=== PATIENT | male | born 1935 | race Caucasian/White ===

== ENCOUNTER 2018-02-04 07:56 | Emergency (ER) | payer MEDICARE ==
[2018-02-04 08:37] LABS: #Eosinphils 0.1 thou/uL (0.0-0.7); #Lymphocytes 1.5 thou/uL (1.20-3.40); #Monocytes 0.4 thou/uL (0.11-0.59); #Neutrophils 3.6 thou/uL (1.40-6.50); %Basophils 0.3 % (0.0-1.0); %Eosinophils 1.5 % (0.0-10.0); %Lymphocytes 27.3 % (21.0-51.0); %Monocytes 7.7 % (0.0-10.0); %Neutrophils 63.3 % (42.0-75.0); Hemoglobin 13.7 g/dL (14.0-18.0); Mean Corpuscular HGB CONC 34.2 g/dL (32.0-36.0); Mean Corpuscular Hemoglobin 31.5 pg (27.0-31.0); Mean Corpuscular Volume 91.9 fL (78.0-98.0); Mean Platelet Volume 8.2 fL (7.4-10.4); Platelet Count 187 thou/uL (130-400); RBC Distribution Width 12.3 % (11.5-14.5); Red Blood Cell (RBC) Count 4.34 mill/uL (4.70-6.10); White Blood Cell (WBC) Count 5.7 thou/uL (4.8-10.8)
[2018-02-04] MEDS ORDERED: methylPREDNISolone Sod Succ/PF 125 MG/2 ML VIAL ONE (08:37)
[2018-02-04 08:47] LABS: ALT (SGPT) 46 U/L (8-55); AST (SGOT) 30 U/L (5-34); Albumin 3.9 g/dL (3.4-4.8); Alkaline Phosphatase 88 U/L (40-150); Anion Gap 17 mmol/L (10-20); BUN (Urea Nitrogen) 19 mg/dL (8.4-25.7); Bilirubin, Total 0.4 mg/dL (0.2-1.2); CK (CPK) 116 U/L (30-200); Calc. Creatinine Clearance 0 mL/min (70-130); Calcium 9.1 mg/dL (7.8-10.44); Carbon Dioxide 18 mmol/L (23-31); Chloride 104 mmol/L (98-107); Estimated GFR-MDRD 76; Glucose 247 mg/dL (83-110); Lipase 6 U/L (8-78); Potassium 4.2 mmol/L (3.5-5.1); Protein, Total 6.9 g/dL (5.8-8.1); Sodium 135 mmol/L (136-145)
[2018-02-04 08:57] LABS: CKMB 4.5 ng/mL (0-6.6); Troponin I Less than 0.010 ng/mL (< 0.028)
--- NOTE | 2018-02-04 09:30 | RAD ---
FRONTAL VIEW CHEST: COMPARISON: 11/18/10. INDICATION: Chest pain. FINDINGS: There is no evidence of lobar consolidation, effusion, or discrete pneumothorax. No free air is seen beneath the hemidiaphragms. The cardiomediastinal silhouette is accentuated by portable technique. There is interstitial prominence of each lung. IMPRESSION: No focal consolidation. POS: [facility]
== END 2018-02-04 10:22 | disposition home or self-care (01) ==
LOC: ERS 07:56
DX: J44.1 Chronic obstructive pulmonary disease with (acute) exacerbation (principal); E11.9 Type 2 diabetes mellitus without complications; Z87.891 Personal history of nicotine dependence
CPT/HCPCS: 71045; 80053; 82550; 82553; 83690; 84484; 85025; 93005; 94640; 96374; J2930; J7620

== ENCOUNTER 2019-09-22 09:00 | Emergency (ER) | payer OTHER, MEDICARE ==
[2019-09-22 10:48] LABS: Bacteria/HPF 4+ HPF (None Seen); Bilirubin Negative (Negative); Blood, Urine Trace (Negative); Calcium Oxalate Crystals 1+ HPF (None Seen); Clarity Turbid (Clear); Glucose, Urine (Dipstick) Greater than 1000 mg/dL (Negative); Leukocyte 500 Leu/uL (Negative); Nitrite Negative (Negative); Protein, Urine (Dipstick) 20 mg/dL (Neg-Trace); RBC/HPF None Seen HPF (0-3); Squamous Epithelial None Seen HPF (0-3); Urobilinogen Normal mg/dL (Less than 2); WBC/HPF Greater than 50 HPF (0-3)
[2019-09-22 11:20] LABS: #Lymphocytes 1.3 thou/uL (1.20-3.40); #Monocytes 0.7 thou/uL (0.11-0.59); %Basophils 0.2 % (0.0-1.0); %Eosinophils 0.2 % (0.0-10.0); %Lymphocytes 11.5 % (21.0-51.0); %Monocytes 6.5 % (0.0-10.0); %Neutrophils 81.6 % (42.0-75.0); Hemoglobin 13.9 g/dL (14.0-18.0); Mean Corpuscular HGB CONC 33.8 g/dL (32.0-36.0); Mean Corpuscular Hemoglobin 31.6 pg (27.0-31.0); Mean Corpuscular Volume 93.5 fL (78.0-98.0); Mean Platelet Volume 9.8 fL (7.4-10.4); Platelet Count 160 thou/uL (130-400); RBC Distribution Width 12.2 % (11.5-14.5); Red Blood Cell (RBC) Count 4.41 mill/uL (4.70-6.10); White Blood Cell (WBC) Count 11.1 thou/uL (4.8-10.8)
[2019-09-22] MEDS ORDERED: Sodium Chloride 0.9% 100 ML ONE (11:20)
[2019-09-22] MEDS ORDERED: cefTRIAXone\\ROCEPHIN 2 GM VIAL ONE (11:20)
[2019-09-22 11:47] LABS: ALT (SGPT) 32 U/L (8-55); AST (SGOT) 32 U/L (5-34); Albumin 3.7 g/dL (3.4-4.8); Alkaline Phosphatase 93 U/L (40-110); Anion Gap 14 mmol/L (10-20); BUN (Urea Nitrogen) 25 mg/dL (8.4-25.7); Bilirubin, Total 0.5 mg/dL (0.2-1.2); CK (CPK) 634 U/L (30-200); Calc. Creatinine Clearance 0 mL/min (70-130); Calcium 8.7 mg/dL (7.8-10.44); Carbon Dioxide 22 mmol/L (23-31); Chloride 107 mmol/L (98-107); Estimated GFR-MDRD 83; Globulin 2.6 g/dL (2.4-3.5); Glucose 264 mg/dL (83-110); Potassium 4.3 mmol/L (3.5-5.1); Protein, Total 6.3 g/dL (5.8-8.1); Sodium 139 mmol/L (136-145)
--- NOTE | 2019-09-22 12:08 | RAD ---
CHEST 1 VIEW PORTABLE: Date: 09/22/2019 HISTORY: Mild upper lung bullous changes. Increased linear and interstitial markings bilaterally. No confluent pneumonia, overt edema, or pleural effusion. IMPRESSION: Evidence for some mild stable bilateral chronic changes with minimal hyperinflation of the upper lung zones. Atherosclerosis of aorta with ectasia. POS: [facility]
--- NOTE | 2019-09-22 12:29 | RAD ---
AP PELVIS 1 VIEW: Date: 09/22/2019 HISTORY: Injury from a fall. FINDINGS: Mild arthrosis changes of the hip joints, SI joints, and some lower lumbar spine spondylosis. No frac ture or dislocation. IMPRESSION: Osteoarthrosis changes without fracture or dislocation. POS: [facility]
== END 2019-09-22 18:29 ==
LOC: ERS 09:00
DX: S70.02XA Contusion of left hip, initial encounter (principal); N39.0 Urinary tract infection, site not specified; R53.1 Weakness; E11.9 Type 2 diabetes mellitus without complications; J44.9 Chronic obstructive pulmonary disease, unspecified; Z87.891 Personal history of nicotine dependence; Z79.82 Long term (current) use of aspirin; Z79.899 Other long term (current) drug therapy; Z79.84 Long term (current) use of oral hypoglycemic drugs; W18.30XA Fall on same level, unspecified, initial encounter
CPT/HCPCS: 36415; 71045; 72170; 80053; 81003; 81015; 82550; 85025; 87077; 87086; 87186; 96361; 96365; J0696; J3490

== ENCOUNTER 2020-06-14 10:11 | Inpatient (IN) | payer MEDICARE, OTHER ==
[2020-06-14 10:56] LABS: Bacteria/HPF 4+ HPF (None Seen); Bilirubin Negative (Negative); Blood, Urine 1+ (Negative); Clarity Clear (Clear); Glucose, Urine (Dipstick) 500 mg/dL (Negative); Ketone, Urine Negative (Negative); Leukocyte 75 Leu/uL (Negative); Nitrite 2+ (Negative); Protein, Urine (Dipstick) 20 mg/dL (Neg-Trace); RBC/HPF 21-50 HPF (0-3); Specific Gravity, Urine 1.019 (1.002-1.036); Squamous Epithelial None Seen HPF (0-3); Urobilinogen Normal mg/dL (Less than 2); pH, Urine 5.5 (5.0-9.0)
[2020-06-14 11:06] LABS: #Lymphocytes 0.5 thou/uL (1.20-3.40); #Monocytes 0.3 thou/uL (0.11-0.59); #Neutrophils 3.6 thou/uL (1.40-6.50); %Eosinophils 0.2 % (0.0-10.0); %Lymphocytes 11.2 % (21.0-51.0); %Monocytes 7.4 % (0.0-10.0); %Neutrophils 80.2 % (42.0-75.0); Hemoglobin 13.7 g/dL (14.0-18.0); Mean Corpuscular HGB CONC 32.5 g/dL (32.0-36.0); Mean Corpuscular Hemoglobin 30.8 pg (27.0-31.0); Mean Corpuscular Volume 94.7 fL (78.0-98.0); Mean Platelet Volume 9.2 fL (7.4-10.4); Platelet Count 130 thou/uL (130-400); RBC Distribution Width 12.8 % (11.5-14.5); Red Blood Cell (RBC) Count 4.46 mill/uL (4.70-6.10); White Blood Cell (WBC) Count 4.4 thou/uL (4.8-10.8)
--- NOTE | 2020-06-14 11:12 | RAD ---
Chest AP view INDICATION: Worsening weakness with history of Covid positive exposure COMPARISON: September 22, 2019 FINDINGS: Lungs: There is new airspace opacity within the left lower lobe and lingula. Cardiac silhouette: There is cardiomegaly Pulmonary vasculature: There is pulmonary vascular congestion Pleural spaces: There are small bilateral pleural effusions Upper abdomen: No abnormality seen. Osseous structures: No acute osseous abnormality. Additional findings: None IMPRESSION: New airspace opacity within the lingula and left lower lobe may reflect airspace edema or pneumonia. There is findings of mild CHF. Recommend correlation with the clinical examination.
[2020-06-14 11:26] LABS: ALT (SGPT) 39 U/L (8-55); AST (SGOT) 35 U/L (5-34); Albumin 3.5 g/dL (3.4-4.8); Alkaline Phosphatase 80 U/L (40-110); Anion Gap 15 mmol/L (10-20); BUN (Urea Nitrogen) 16 mg/dL (8.4-25.7); Bilirubin, Total 0.2 mg/dL (0.2-1.2); Calc. Creatinine Clearance 0 mL/min (70-130); Calcium 8.3 mg/dL (7.8-10.44); Carbon Dioxide 21 mmol/L (23-31); Chloride 102 mmol/L (98-107); Estimated GFR-MDRD 77; Globulin 3.2 g/dL (2.4-3.5); Glucose 301 mg/dL (83-110); Potassium 4.5 mmol/L (3.5-5.1); Protein, Total 6.7 g/dL (5.8-8.1); Sodium 133 mmol/L (136-145)
[2020-06-14] MEDS ORDERED: cefTRIAXone\\ROCEPHIN 1 GM VIAL ONE ×2 (11:59→12:00)
[2020-06-14] MEDS ORDERED: Azithromycin 500 MG VIAL ONE (12:00)
[2020-06-14] MEDS ORDERED: Dexamethasone 4 mg/ml Vial ONE (12:16)
[2020-06-14] MEDS ORDERED: Aspirin Chewable 81 MG TAB ONE (12:16)
[2020-06-14 13:05] LABS: SARS-CoV-2 NAA Rapid Test DETECTED (NotDetected)
[2020-06-14 13:59] LABS: Lactic Acid 1.3 mmol/L (0.5-2.2)
[2020-06-14 18:09] LABS: Troponin I Less than 0.010 ng/mL (< 0.028)
[2020-06-14] MEDS ORDERED: Acetaminophen 325 MG TAB PO PRN (19:00)
[2020-06-14] MEDS ORDERED: Ondansetron ODT 4 MG TAB SL PRN (19:00)
[2020-06-14] MEDS ORDERED: Ondansetron PF 4 MG/2 ML Vial IVP PRN (19:00)
--- NOTE | 2020-06-14 19:38 | HP ---
CHIEF COMPLAINT: Weakness. HISTORY OF PRESENT ILLNESS: This patient is an 85-year-old male, who presented to the emergency department. The patient reports that he felt completely fine yesterday, but this morning he felt weak. He states something like this happened to him before back in August, at which time he went to rehab and felt like he was doing better until today. He denies any shortness of breath or cough. He denies any fever. It is my understanding that his primary caregivers are positive for COVID. The patient was tested here and is COVID positive as well. Initially in the emergency department, he has a room air saturation documented at 93%. He was subsequently placed on oxygen. REVIEW OF SYSTEMS: As above. Patient reports that he is only having some generalized weakness, but otherwise his review of systems was essentially negative, except for those things mentioned in the history of present illness. PAST MEDICAL HISTORY: Notable for bladder cancer with surgery x2, hernia repair, diabetes. He also reports he has a history of COPD, but quit smoking 10 to 12 years ago and feels like that has improved. FAMILY HISTORY: Noncontributory. SOCIAL HISTORY: Patient is a former smoker, who quit 10 years ago. Denies alcohol or drugs. His is . He lives with his son and [id number]. CURRENT MEDICATIONS: 1. Gabapentin 300 mg p.o. daily. 2. Lisinopril 5 mg daily. 3. Metformin 500 mg p.o. b.i.d. 4. Finasteride 5 mg daily. 5. Glipizide 7.5 mg daily. 6. Albuterol inhaler p.r.n. 7. Symbicort 160-4.5 mcg actuation two inhalations p.r.n. 8. Spiriva Respimat 2.5 mcg per actuation two inhalations stated as needed. 9. Lantus 30 units subcu daily. ALLERGIES: NONE. PHYSICAL EXAMINATION: VITAL SIGNS: Initial vitals; BP 111/71, pulse 96, respirations 19, temperature 100, and O2 saturation 93% on room air. Most recent vitals; BP 121/71, pulse 88, respirations 20, temperature 98.9, and O2 saturation ranged from 93% to 98% on room air. GENERAL APPEARANCE: Age-appropriate male. He is awake and alert. He is sitting on the edge of the bed, eating a sandwich. He is not wearing oxygen and his saturation again ranges around 95% to 98% for the most part. He speaks in full sentences. He is hard of hearing. HEENT: KARELY. No OP lesions. HEART: Regular without murmurs. LUNGS: Clear to auscultation bilaterally with no wheezes or rales. ABDOMEN: Soft, nontender, and nondistended. Positive bowel sounds. No masses. No organomegaly. EXTREMITIES: Have no cyanosis, clubbing, or edema. PSYCH: Patient is alert, oriented, pleasant, and cooperative. NEUROLOGIC: No focal deficits. Cranial nerves are intact. LABORATORY DATA: White count 4.4; hemoglobin 13.7; sodium 133; potassium 4.5; chloride 102; CO2 is 21; BUN is 16; creatinine 0.93; glucose is 301, subsequent 233; lactic acid 1.3; calcium 8.3; AST 35; and ALT 39. Troponin 0.013. Urinalysis shows 500 glucose, 1+ blood, 2+ nitrites, positive leukocyte esterase, 25 to 50 red cells, 11 to 20 white cells, 4+ bacteria. Flu screen negative. COVID screen positive. Chest x-ray shows new airspace opacity within the lingula and left lower lobe representing edema or pneumonia, possibly some mild heart failure signs present. IMPRESSION AND PLAN: 1. Generalized weakness: Patient had a similar episode back in August, which required some inpatient rehab. Certainly possible that he is having some symptoms of COVID manifest as he has some generalized weakness. I have asked the ER physician to see if the patient would qualify to return to inpatient rehab at this time. Alternatively to be placed on observation and have Physical Therapy assess him here. 2. COVID pneumonia. The patient has a low white blood cell count with low lymphocytes and infiltrate on the x-ray, all consistent with COVID pneumonia. His screening test is also positive. Presently, the patient is not significantly hypoxic or showing any other signs other than the potential weakness from the COVID. Therefore, would not qualify for any significant therapeutics. Currently, seems to be speaking in full sentences without significant hypoxia. In fact, his saturations appeared to be quite good. Certainly, this could change at some point in the future, but presently appears to be fairly stable. 3. Possible urinary tract infection, difficult to assess given that the patient has had the prior bladder cancers and bladder interventions. I believe the evidence for infection is generally equivocal. Again, his white count is low, not consistent with a substantial bacterial infection. He did receive a dose of Rocephin and azithromycin in the emergency department. Not clear that needs to be treated at all, but certainly could be covered with some type of oral antibiotic until cultures return. 4. Borderline hyponatremia with sodium of 133. I do not believe that is significant enough to be symptomatic, may need to be rechecked at some point. 5. Diabetes mellitus, currently blood sugars are running a bit high. He did receive a dose of Decadron in the emergency department. Would need continued monitoring. 6. Disposition. Discussed with the ER physician. Again, the patient is not hypoxic with his COVID. He does not qualify for any specific interventions and is somewhat on the fences to whether he needs observation or whether he could go to inpatient rehab. We will allow them to assess the patient for appropriateness there and short of that we would consider placing the patient in observation status for Physical Therapy to assess him while he is here. Job ID: [id number]
[2020-06-14 21:31] LABS: Troponin I Less than 0.010 ng/mL (< 0.028)
[2020-06-14] MEDS ORDERED: Dextrose 50% Abboject 50 ML SYRINGE SLOW IVP PRN (21:52)
[2020-06-14] MEDS ORDERED: Dextrose 5% in Water 1,000 ML IV PRN (21:52)
[2020-06-14] MEDS ORDERED: HumaLOG 300 UNITS/3 ML VIAL SC PRN (21:52)
[2020-06-15] MEDS: HumaLOG 300 UNITS/3 ML VIAL SC PRN ×3 (05:22→17:37)
[2020-06-15 06:09] LABS: #Lymphocytes 0.9 thou/uL (1.20-3.40); #Monocytes 0.3 thou/uL (0.11-0.59); #Neutrophils 2.1 thou/uL (1.40-6.50); %Basophils 0.3 % (0.0-1.0); %Eosinophils 0.3 % (0.0-10.0); %Neutrophils 63.4 % (42.0-75.0); Hemoglobin 13.6 g/dL (14.0-18.0); Mean Corpuscular HGB CONC 32.8 g/dL (32.0-36.0); Mean Corpuscular Volume 94.6 fL (78.0-98.0); Mean Platelet Volume 9.4 fL (7.4-10.4); Platelet Count 132 thou/uL (130-400); RBC Distribution Width 12.8 % (11.5-14.5); Red Blood Cell (RBC) Count 4.38 mill/uL (4.70-6.10); White Blood Cell (WBC) Count 3.3 thou/uL (4.8-10.8)
[2020-06-15 06:30] LABS: Anion Gap 15 mmol/L (10-20); BUN (Urea Nitrogen) 23 mg/dL (8.4-25.7); Calc. Creatinine Clearance 78 mL/min (70-130); Calcium 8.6 mg/dL (7.8-10.44); Carbon Dioxide 25 mmol/L (23-31); Chloride 102 mmol/L (98-107); Estimated GFR-MDRD 73; Glucose 337 mg/dL (83-110); Potassium 4.5 mmol/L (3.5-5.1); Sodium 137 mmol/L (136-145)
[2020-06-15] MEDS: Dexamethasone 4 MG TAB PO SCH (08:17)
[2020-06-15] MEDS: Enoxaparin Sodium 40 MG/0.4 ML SYRINGE SC SCH (08:18)
[2020-06-15] MEDS ORDERED: Albuterol 200 PUFF (6.7GM INHALER) INH PRN (15:11)
[2020-06-15] MEDS ORDERED: Ipratropium Oral Inhaler INH PRN (15:14)
--- NOTE | 2020-06-15 16:02 | PDOC.HOSPP ---
- Subjective Encounter Date: 06/15/20 Subjective: As well. Says he is better than yesterday. His weakness has improved. He is able to get up and walk around relatively well today. No difficulty with breathing. No significant cough. - Objective Vital Signs & Weight: Vital Signs (12 hours) Temp Pulse Resp BP BP Pulse Ox 06/15/20 11:40 97.9 F 69 19 133/74 97 06/15/20 08:37 97.2 F L 65 18 114/71 96 06/15/20 08:00 97.2 F L 65 18 114/71 96 06/15/20 05:00 97.8 F 63 20 113/69 95 Weight Weight 220 lb I&O: 06/14/20 06/15/20 06/16/20 06:59 06:59 06:59 Intake Total 510 Balance 510 Result Diagrams: 06/15/20 05:56 06/15/20 05:56 Additional Labs: Accuchecks 06/15/20 06/15/20 06/14/20 11:30 05:23 20:09 POC Glucose 420 H 302 H 417 H Hospitalist ROS - Medication Medications: Active Medications Generic Name Dose Route Start Last Admin Trade Name Freq PRN Reason Stop Dose Admin Dexamethasone 6 mg 06/15/20 08:00 06/15/20 08:17 Dexamethasone 4 Mg Tab PO 6 mg QAM-WM NI Administration Enoxaparin Sodium 40 mg 06/15/20 09:00 06/15/20 08:18 Enoxaparin Sodium 40 Mg/0.4 Ml Syringe SC 40 mg 0900 NI Administration - Exam General Appearance: NAD, awake alert Heart: RRR, no murmur, no gallops, no rubs, normal peripheral pulses Respiratory: CTAB, no wheezes, no rales, no ronchi, normal chest expansion, no tachypnea, normal percussion Gastrointestinal: soft, non-tender, non-distended, normal bowel sounds, no palpable masses, no hepatomegaly, no splenomegaly Gastrointestinal - other findings: Ventral hernia Extremities: no cyanosis, no clubbing, no edema Skin: normal turgor Neurological: no focal deficits Musculoskeletal: normal tone, normal strength Psychiatric: normal affect, normal behavior, A&O x 3 Hosp A/P (1) COVID-19 virus infection Code(s): U07.1 - COVID-19 Status: Acute (2) Urinary tract infection Status: Acute (3) Generalized weakness Code(s): R53.1 - WEAKNESS Status: Acute (4) Diabetes mellitus Code(s): E11.9 - TYPE 2 DIABETES MELLITUS WITHOUT COMPLICATIONS Status: Acute (5) Hyponatremia Code(s): E87.1 - HYPO-OSMOLALITY AND HYPONATREMIA Status: Acute - Plan COVID-19 viral infection: Patient does not demonstrate any significant hypoxia. He has been on some oxygen overnight however his sats appear to have been normal throughout. I did discuss with his nurse and she reported he had one episode of an O2 sat at 90% after going to the bathroom but responded very rapidly and improved. Removing the oxygen again now. He certainly does not appear to have any respiratory issues and does not report any symptoms. Overall does not appear that his Covid is significantly symptomatic. There is no indication for any specific treatments. Would not even initiate Decadron at this time given the fact that his blood sugars are already high. Urinary tract infection: Patient has very equivocal evidence for this. He has been afebrile. His white count is low with the Covid and not high. He is growing gram-negative radha. We will give him another dose of Rocephin now and follow-up cultures. Motivated to treat only because of his generalized weakness he experienced yesterday. Diabetes mellitus: Very poor control of his blood sugars. Sounds like he was on a heart healthy diet which will be changed to a carb consistent diet. Resume and his usual home medications once they were clarified today. He did miss some of those this morning and that is contributed as well. Increased to a moderate sliding scale. Hyponatremia: Resolved. Generalized weakness: Likely due to the underlying Covid and possibly UTI. He got up and walked with physical therapy a couple of times today and did well. Disposition: Given a dose of Rocephin today. Wean him off the oxygen entirely as I do not believe it is indicated at this point. Anticipate he will be able to discharge tomorrow. Physical therapy did see him and recommended home therapy.
[2020-06-15] MEDS ORDERED: glipiZIDE 5 MG TAB PO SCH (17:00)
[2020-06-15] MEDS: metFORMIN 500 MG TAB PO SCH (17:37)
[2020-06-15] MEDS: Mometasone 200 MCG/Formoterol 5 MCG 120 PUFF INHALER INH SCH (18:52)
[2020-06-15] MEDS ORDERED: FLU VACC QS2020-21(65YR UP)/PF 240 MCG/0.7 ML SYRINGE IM ONE (21:00)
[2020-06-15] MEDS ORDERED: Gabapentin 300 MG CAP PO SCH (21:00)
[2020-06-15] MEDS ORDERED: Insulin Glargine 30 UNITS in Pre-Filled Syringe 1 EACH SC SCH (21:00)
[2020-06-16 02:41] VITALS: BMI 29.8
[2020-06-16] MEDS: Mometasone 200 MCG/Formoterol 5 MCG 120 PUFF INHALER INH SCH (06:45)
[2020-06-16] MEDS ORDERED: glipiZIDE 5 MG TAB PO SCH ×2 (07:30)
[2020-06-16] MEDS: Dexamethasone 4 MG TAB PO SCH (08:20)
[2020-06-16] MEDS: metFORMIN 500 MG TAB PO SCH (08:20)
[2020-06-16] MEDS: Enoxaparin Sodium 40 MG/0.4 ML SYRINGE SC SCH (08:25)
[2020-06-16] MEDS ORDERED: Finasteride 5 MG TAB PO SCH (09:00)
[2020-06-16] MEDS ORDERED: Lisinopril 5 MG TAB PO SCH (09:00)
[2020-06-16] MEDS ORDERED: cefTRIAXone\\ROCEPHIN 1 GM in Sodium Chloride 0.9% 100 ML IVPB SCH (12:00)
[2020-06-16] MEDS: HumaLOG 300 UNITS/3 ML VIAL SC PRN (12:07)
[2020-06-16 13:15] VITALS: BP 102/61; TEMP 96.8
--- NOTE | 2020-06-19 11:22 | PDOC.DS.DS ---
Provider - Provider Date of Admission: 06/15/20 19:11 Date of Discharge: 06/16/20 Admitting Provider: Horacio Proctor MD Primary Care Physician: [facility] Course - Hospital Course Hospital Course: COVID-19 viral infection: Patient had positive Covid 19 testing. However he did not demonstrate any significant hypoxia. Patient's only symptom was some weakness that appeared to improve significantly. He remained on room air oxygen. The lowest saturation was documented was 90% when he got up to go to the bathroom. That responded very rapidly and did not require any oxygen. Because he was not hypoxic he did not qualify for any significant intervention. Consideration was given to Decadron however he did not really qualify for that with his blood sugar issues that was held. Urinary tract infection: Patient has very equivocal evidence for this. He was treated empirically. Initially his urine was growing gram-negative rods. However, he ultimately had multiple organisms growing all of which were at very low colony counts and did not appear to represent a significant specific pathogen. Therefore it was felt there was no indication for ongoing antibiotics. Diabetes mellitus: Very poor control of his blood sugars. Sounds like he was on a heart healthy diet which will be changed to a carb consistent diet. Resumed and his usual home medications once they were clarified. Blood sugars did improve to a reasonable level. Hyponatremia: Initial mild hyponatremia resolved promptly. Generalized weakness: Likely due to the underlying Covid and possibly UTI. He got up and walked with physical therapy a couple of times and did well. Recommendations were for home with some home physical therapy. Disposition: Patient was not requiring oxygen supplementation. He did not appear to have significant pathogen on urine cultures. He felt well and was eager to go home. Therefore patient was discharged in stable condition. He was advised to return the hospital should he develop any new significant symptoms related to the Covid infection. - Labs Lab Results: 06/15/20 05:56 06/15/20 05:56 Microbiology - Entire Visit 06/14/20 10:30 Urine Straight Catheter Urine Culture - Final Klebsiella oxytoca Klebsiella pneumoniae ssp pneu Enterococcus faecalis 06/14/20 10:54 Venous blood - Right Hand Blood Culture - Preliminary NO GROWTH AT 48 HOURS 06/14/20 10:54 Venous blood - Left Arm Blood Culture - Preliminary NO GROWTH AT 48 HOURS 06/14/20 11:50 Nasal swab Influenza Types A,B Direct EIA - Final - Physical Exam Vitals: Weight Weight 220 lb Physical Exam: The patient was seen and examined on the day of discharge. Problem - Problem (1) COVID-19 virus infection Code(s): U07.1 - COVID-19 Status: Acute (2) Urinary tract infection Status: Acute (3) Generalized weakness Code(s): R53.1 - WEAKNESS Status: Acute (4) Diabetes mellitus Code(s): E11.9 - TYPE 2 DIABETES MELLITUS WITHOUT COMPLICATIONS Status: Acute (5) Hyponatremia Code(s): E87.1 - HYPO-OSMOLALITY AND HYPONATREMIA Status: Acute Plan - Discharge Medications Prescriptions: Dexamethasone [Decadron] 6 mg PO QAM-WM #8 tab Home Medications: Medication Instructions Recorded Confirmed Type Albuterol Sulfate [Proair 1 inh INH Q4HR PRN 06/15/20 06/18/20 History Digihaler] Budesonide-Formoterol [Symbicort 2 inh INH PRN PRN 06/15/20 06/18/20 History 160-4.5] Finasteride [Proscar] 5 mg PO DAILY 06/15/20 06/18/20 History Gabapentin [Neurontin] 1 cap PO HS 06/15/20 06/18/20 History Lisinopril [Zestril] 5 mg PO DAILY 06/15/20 06/18/20 History Tiotropium Tenafly [Spiriva 2 puff INH DAILY 06/15/20 06/18/20 History Respimat] glipiZIDE [Glipizide] 7.5 mg PO DAILY 06/15/20 06/18/20 History metFORMIN [Glucophage] 1,000 mg PO BID 06/15/20 06/18/20 History Dexamethasone [Decadron] 6 mg PO QAM-WM #8 tab 06/16/20 06/18/20 Rx Allergies: No Known Allergies Allergy (Verified 06/18/20 17:31) - Discharge Instructions Activity:: Activity as Tolerated Nourishment:: Diabetic Diet Therapies:: Home Health, Physical Therapy - Follow up Plan Referrals: [facility] [Outside] [facility] [Primary Care Provider] - 7 Days Disposition: HOME HEALTH Quality - Care Measures CORE MEASURES:: N/A
--- NOTE | 2020-06-20 17:07 | EKG ---
Test Reason : AMS Blood Pressure : / mmHG Vent. Rate : 091 BPM Atrial Rate : 091 BPM P-R Int : 218 ms QRS Dur : 084 ms QT Int : 348 ms P-R-T Axes : 043 -13 015 degrees QTc Int : 428 ms Sinus rhythm with 1st degree A-V block Low voltage QRS Borderline ECG Confirmed by SHAUN SUBRAMANIAN DO ([id number]), editor newspaper MENA CALHOUN ([id number]) on 06/20/2020 5:07:29 PM Referred By: Confirmed By:SHAUN SUBRAMANIAN DO
== END 2020-06-16 15:28 | disposition home health service (06) | DRG 177 ==
LOC: ERS 10:11 → T4-B 15:00 → OBSVTOIN 06-15 19:11
PROVIDERS: ADMIT Internal Medicine; ATTEND Internal Medicine
PROC: 8E0ZXY6 Isolation (ICD-10-PCS; principal; 2020-06-15)
DX: U07.1 COVID-19 (principal); J12.89 Other viral pneumonia; J44.0 Chronic obstructive pulmonary disease with (acute) lower respiratory infection; E87.1 Hypo-osmolality and hyponatremia; N39.0 Urinary tract infection, site not specified; E11.9 Type 2 diabetes mellitus without complications; B96.89 Other specified bacterial agents as the cause of diseases classified elsewhere; Z28.21 Immunization not carried out because of patient refusal; Z85.51 Personal history of malignant neoplasm of bladder; Z87.891 Personal history of nicotine dependence; Z79.899 Other long term (current) drug therapy; Z79.4 Long term (current) use of insulin
CPT/HCPCS: 36415; 36416; 51701; 71045; 80048; 80053; 81003; 81015; 83605; 84484; 85025; 87040; 87077; 87086; 87186; 87804; 93005; 94664; 94760; 96365; 96367; 96372; G0378; J0456; J0696; J1100; J1650; J1815; J8540; U0002

== ENCOUNTER 2020-06-18 11:08 | Inpatient (IN) | payer OTHER ==
[2020-06-18] MEDS ORDERED: Albuterol 200 PUFF (6.7GM INHALER) ONE (11:45)
[2020-06-18] MEDS ORDERED: Azithromycin 500 MG VIAL ONE (11:46)
[2020-06-18] MEDS ORDERED: Dexamethasone 10 MG/ML VIAL ONE (11:46)
--- NOTE | 2020-06-18 12:01 | RAD ---
EXAM: XR Chest 1 View Portable PROVIDED CLINICAL HISTORY: Dyspnea, Covid positive COMPARISON: 06/14/2020 FINDINGS: Cardiac and mediastinal silhouette is unchanged in appearance. Persistent and moderately worsened stephen ateral interstitial and airspace disease. No pleural fluid or pneumothorax apparent. IMPRESSION: Worsened bilateral airspace disease compatible with Covid pneumonia.
[2020-06-18 12:56] LABS: #Lymphocytes 0.7 thou/uL (1.20-3.40); #Monocytes 0.6 thou/uL (0.11-0.59); #Neutrophils 4.5 thou/uL (1.40-6.50); %Basophils 0.3 % (0.0-1.0); %Eosinophils 0.6 % (0.0-10.0); %Lymphocytes 12.4 % (21.0-51.0); %Monocytes 10.1 % (0.0-10.0); %Neutrophils 76.6 % (42.0-75.0); Hemoglobin 14.6 g/dL (14.0-18.0); Mean Corpuscular Hemoglobin 31.2 pg (27.0-31.0); Mean Corpuscular Volume 94.6 fL (78.0-98.0); Mean Platelet Volume 9.3 fL (7.4-10.4); Platelet Count 153 thou/uL (130-400); RBC Distribution Width 12.6 % (11.5-14.5); Red Blood Cell (RBC) Count 4.69 mill/uL (4.70-6.10); White Blood Cell (WBC) Count 5.8 thou/uL (4.8-10.8)
[2020-06-18 13:19] LABS: ALT (SGPT) 40 U/L (8-55); AST (SGOT) 53 U/L (5-34); Albumin 3.5 g/dL (3.4-4.8); Alkaline Phosphatase 73 U/L (40-110); Anion Gap 13 mmol/L (10-20); BUN (Urea Nitrogen) 20 mg/dL (8.4-25.7); Bilirubin, Total 0.4 mg/dL (0.2-1.2); Calc. Creatinine Clearance 0 mL/min (70-130); Calcium 8.7 mg/dL (7.8-10.44); Carbon Dioxide 29 mmol/L (23-31); Chloride 100 mmol/L (98-107); Globulin 3.4 g/dL (2.4-3.5); Glucose 95 mg/dL (83-110); Potassium 3.6 mmol/L (3.5-5.1); Protein, Total 6.9 g/dL (5.8-8.1); Sodium 138 mmol/L (136-145)
[2020-06-18 13:42] LABS: CKMB 2.5 ng/mL (0-6.6)
--- NOTE | 2020-06-18 15:38 | HP ---
PRIMARY CARE PHYSICIAN: [facility] in [place]. CHIEF COMPLAINT: Weakness with fall and hypoxia. HISTORY OF PRESENT ILLNESS: This is an 85-year-old white male in the hospital just a few days ago with COVID pneumonia and possible UTI. He was a little weak during his last hospitalization, but eventually was able to get up, move around, his strength improved. He had no respiratory symptoms at all. At that time, he was saturating well on room air. The patient was observed in the hospital for a few days and was doing well and so eventually was discharged home on dexamethasone. The patient reports that he started to have some cough and increasing shortness of breath over the last day. He then had a fall at home and was unable to get back up. EMS was called. They found him with oxygen saturation of 77% on room air and he was dyspneic at that time. This improved with a non-rebreather, and on arrival to the ER, he was saturating in the low 90s to upper 80s on 2 L nasal cannula. This was increased to 3 L and he saturating in the mid-to-high 90s on that and feeling much better. He did have some chest pain on and off, central, not necessarily associated with cough, not present currently. No other specific complaints. REVIEW OF SYSTEMS: CONSTITUTIONAL: No fevers. No chills. EYES: No double vision or blurred vision. ENT: He has a little bit of congestion on and off and a little bit of sore throat on and off. CARDIOVASCULAR: See HPI. No palpitations or racing heart. PULMONARY: See HPI. No wheezing or chest tightness currently. He did have a little bit before given inhaler in the emergency room. GASTROINTESTINAL: No abdominal pain. No nausea or vomiting. No diarrhea or constipation. GENITOURINARY: No dysuria or hematuria. MUSCULOSKELETAL: He has bilateral lower extremity legs that are aching, but no focal symptoms or specific areas of pain since the fall. SKIN: No rashes or other lesions noted. NEUROLOGIC: No numbness, tingling, or focal weakness. Just generalized weakness. PAST MEDICAL HISTORY: 1. COPD, not on home oxygen. 2. Diabetes mellitus type 2, insulin dependent. 3. History of bladder cancer. 4. Umbilical hernia. PAST SURGICAL HISTORY: 1. Hernia repair. 2. Bladder surgery. SOCIAL HISTORY: The patient used to be a smoker, quit 10 to 12 years ago, and his COPD seems to have improved since then. No alcohol or illicit drug use. His is . He lives with his son and [id number]. He is a full code. Should he be incapacitated, he states that his [id number] will be his medical decision maker, her name is Aye Burgos. ALLERGIES: NO KNOWN DRUG ALLERGIES. CURRENT MEDICATIONS: 1. Albuterol inhaler as needed. 2. Symbicort 160/4.5 two inhalations, written is as needed. 3. Dexamethasone 6 mg daily, started in his last hospitalization. 4. Finasteride 5 mg daily. 5. Gabapentin 300 mg at night. 6. Glipizide 5 mg in the morning and 2.5 mg at night. 7. Lantus 30 units subcu at bedtime. 8. Lisinopril 5 mg daily. 9. Metformin 1000 mg twice a day. 10. Spiriva in 2 inhalations, written as p.r.n. FAMILY HISTORY: Noncontributory. PHYSICAL EXAMINATION: VITAL SIGNS: Blood pressure 107/67, pulse 81, respirations 19, temperature 99.3, and O2 saturation 95% on 3 L of oxygen. GENERAL: This is a well-developed, well-nourished white male, in no acute distress. No respiratory distress currently. HEENT: Pupils equal, round, and reactive to light. Oropharynx with minimal erythema. No exudate or lesions noted. NECK: Supple. No lymphadenopathy. No thyroid nodules or enlargement. No JVD. HEART: Regular rate and rhythm. No murmurs, rubs, or gallops. LUNGS: Currently, clear to auscultation bilaterally. No wheezes, crackles, or rhonchi. ABDOMEN: Soft. Nontender to palpation. Normoactive bowel sounds. No hepatosplenomegaly or other masses. He does have a soft reducible umbilical hernia. EXTREMITIES: No clubbing, cyanosis, or edema. He does have elastic knee supports on bilaterally. SKIN: No rashes or other lesions noted. NEUROLOGIC: The patient moves all extremities equally. No facial droop. PSYCHIATRIC: Alert and oriented x3. Normal mood and affect. LABORATORY DATA: CBC with a white blood cell count of 5.8 and lymphocytes of 12.4%. The remainder of the CBC is normal. Complete metabolic panel is notable for AST of 53, the rest was normal. Troponin was indeterminate at 0.071; on the first check, it was negative 4 days ago. CK-MB was negative. Chest x-ray, I did review the chest x-ray done in the emergency room along with the radiologist's report. It does show worsening bilateral infiltrates consistent with COVID pneumonia. EKG done in the emergency room shows normal sinus rhythm at 94 beats per minute. No ST-segment changes or T-wave inversions. Normal EKG. ASSESSMENT: 1. COVID pneumonia with acute hypoxic respiratory failure. We will admit the patient to the hospital. We will put him on oxygen. We will continue dexamethasone. We will start remdesivir protocol. We will also put him on twice a day Lovenox. We will monitor for any deterioration. 2. Diabetes mellitus type 2, insulin dependent. Resume the patient's insulin. We will monitor blood sugars before every meal and at bedtime with a low insulin sliding scale. We will increase insulin as needed while he is on the dexamethasone. 3. Chronic obstructive pulmonary disease. We will give the patient albuterol as needed. We will resume his home inhalers. 4. Gastrointestinal prophylaxis, put the patient on Pepcid twice a day. 5. Deep venous thrombosis prophylaxis, put the patient on Lovenox twice a day. 6. Code status, the patient is a full code. Should he be incapacitated, his [id number] would be his medical decision maker. Job ID: [id number]
[2020-06-18] MEDS ORDERED: Ondansetron ODT 4 MG TAB SL PRN (16:30)
[2020-06-18] MEDS ORDERED: Ondansetron PF 4 MG/2 ML Vial IVP PRN ×2 (16:30→16:48)
[2020-06-18] MEDS ORDERED: Senokot S 8.6-50 MG TAB PO PRN (16:48)
[2020-06-18] MEDS ORDERED: Ondansetron ODT 4 MG TAB PO PRN (16:48)
[2020-06-18] MEDS ORDERED: Dextrose 5% in Water 1,000 ML IV PRN (16:48)
[2020-06-18] MEDS ORDERED: Non-Formulary Item 1 EACH (Albuterol Sulfate [Proair Digihaler] 90 MCG Aer.Pw.Bas) INH PRN (16:48)
[2020-06-18] MEDS ORDERED: Dextrose 50% Abboject 50 ML SYRINGE SLOW IVP PRN (16:48)
[2020-06-18] MEDS ORDERED: Acetaminophen 650 MG Suppository PR PRN (16:48)
[2020-06-18] MEDS ORDERED: Albuterol 200 PUFF (6.7GM INHALER) INH PRN (18:59)
[2020-06-18] MEDS ORDERED: REMDESIVIR (EUA) 200 MG in Sodium Chloride 0.9% 250 ML 210 ML IV SCH (20:00)
[2020-06-18] MEDS: Enoxaparin Sodium 40 MG/0.4 ML SYRINGE SC SCH (20:17)
[2020-06-18] MEDS: Famotidine 20 MG TAB PO SCH (20:17)
[2020-06-18] MEDS: Gabapentin 300 MG CAP PO SCH (20:17)
[2020-06-18] MEDS: Insulin Glargine 30 UNITS in Pre-Filled Syringe 1 EACH SC SCH (20:18)
[2020-06-18] MEDS ORDERED: glipiZIDE 5 MG TAB PO SCH (21:00)
[2020-06-18] MEDS ORDERED: metFORMIN 500 MG TAB PO SCH (21:00)
[2020-06-18] MEDS ORDERED: Sodium Chloride 0.9% 1,000 ML IV SCH (21:45)
[2020-06-18] MEDS: Acetaminophen 325 MG TAB PO PRN (23:37)
[2020-06-19] MEDS: Acetaminophen 325 MG TAB PO PRN ×3 (03:56→21:22)
[2020-06-19 05:02] LABS: #Lymphocytes 0.8 thou/uL (1.20-3.40); #Monocytes 0.4 thou/uL (0.11-0.59); #Neutrophils 2.3 thou/uL (1.40-6.50); %Basophils 0.8 % (0.0-1.0); %Eosinophils 0.2 % (0.0-10.0); %Lymphocytes 22.7 % (21.0-51.0); %Monocytes 10.1 % (0.0-10.0); %Neutrophils 66.2 % (42.0-75.0); Hemoglobin 13.7 g/dL (14.0-18.0); Mean Corpuscular HGB CONC 32.8 g/dL (32.0-36.0); Mean Corpuscular Hemoglobin 30.5 pg (27.0-31.0); Mean Corpuscular Volume 93.1 fL (78.0-98.0); Mean Platelet Volume 8.6 fL (7.4-10.4); Platelet Count 147 thou/uL (130-400); RBC Distribution Width 12.7 % (11.5-14.5); Red Blood Cell (RBC) Count 4.48 mill/uL (4.70-6.10); White Blood Cell (WBC) Count 3.4 thou/uL (4.8-10.8)
[2020-06-19 05:22] LABS: Anion Gap 14 mmol/L (10-20); BUN (Urea Nitrogen) 20 mg/dL (8.4-25.7); Calc. Creatinine Clearance 90 mL/min (70-130); Carbon Dioxide 24 mmol/L (23-31); Chloride 103 mmol/L (98-107); Glucose 173 mg/dL (83-110); Potassium 3.9 mmol/L (3.5-5.1); Sodium 137 mmol/L (136-145)
[2020-06-19] MEDS: Mometasone 200 MCG/Formoterol 5 MCG 120 PUFF INHALER INH SCH ×2 (05:36→21:00)
--- NOTE | 2020-06-19 07:25 | PDOC.HOSPP ---
- Subjective Encounter Date: 06/19/20 Encounter Time: 10:00 Subjective: Patient feeling a bit worse today. Keeping O2 sats up on 3-4L NC. No fevers. - Objective Vital Signs & Weight: Vital Signs (12 hours) Temp Pulse Resp BP Pulse Ox 06/19/20 03:57 98.0 F 63 15 99/56 L 92 L 06/18/20 23:37 98.7 F 69 20 106/57 L 92 L 06/18/20 21:37 112/57 L 06/18/20 20:00 98.5 F 72 24 H 92/53 L 92 L Weight Weight 210 lb 6.4 oz I&O: 06/18/20 06/19/20 06/20/20 06:59 06:59 06:59 Intake Total 878 Output Total 525 Balance 353 Result Diagrams: 06/19/20 04:47 06/19/20 04:47 Additional Labs: Accuchecks 06/18/20 20:23 POC Glucose 275 H Hospitalist ROS - Review of Systems Constitutional: denies: fever, chills Respiratory: reports: cough, shortness of breath, SOB with excertion Cardiovascular: denies: chest pain, palpitations Gastrointestinal: denies: nausea, vomiting, abdominal pain - Medication Medications: Active Medications Generic Name Dose Route Start Last Admin Trade Name Freq PRN Reason Stop Dose Admin Acetaminophen 650 mg 06/18/20 16:48 06/19/20 03:56 Acetaminophen 325 Mg Tab PO 650 mg Q4H PRN Administration Headache/Fever/Mild Pain (1-3) Enoxaparin Sodium 40 mg 06/18/20 21:00 06/18/20 20:17 Enoxaparin Sodium 40 Mg/0.4 Ml Syringe SC 40 mg 0900,2100 NI Administration Famotidine 20 mg 06/18/20 21:00 06/18/20 20:17 Famotidine 20 Mg Tab PO 20 mg BID NI Administration Gabapentin 300 mg 06/18/20 21:00 06/18/20 20:17 Gabapentin 300 Mg Cap PO 300 mg HS NI Administration Insulin Glargine 30 units/ 0.3 mls @ 0 mls/hr 06/18/20 21:00 06/18/20 20:18 Miscellaneous Medication SC 0.3 mls HS NI Administration Sodium Chloride 1,000 mls @ 75 mls/hr 06/18/20 21:45 06/18/20 21:49 Normal Saline 0.9% IV 06/19/20 11:04 1,000 mls .[id number] NI Administration Mometasone Furoate/Formoterol Fumar 2 puff 06/19/20 06:30 06/19/20 05:36 Mometasone 200 Mcg/Formoterol 5 Mcg 120 Puff Inhaler INH 2 puff BID-RT NI Administration - Exam General Appearance: NAD, awake alert ENT: moist mucosa Heart: RRR, no murmur, no gallops, no rubs Respiratory: no wheezes, no ronchi, no tachypnea Respiratory - other findings: few crackles in bases Gastrointestinal: soft, non-tender, non-distended, normal bowel sounds Psychiatric: normal affect, normal behavior, A&O x 3 Hosp A/P (1) Pneumonia due to COVID-19 virus Code(s): U07.1 - COVID-19; J12.89 - OTHER VIRAL PNEUMONIA Status: Acute (2) Acute respiratory failure with hypoxia Code(s): J96.01 - ACUTE RESPIRATORY FAILURE WITH HYPOXIA Status: Acute (3) Elevated troponin Code(s): R77.8 - OTHER SPECIFIED ABNORMALITIES OF PLASMA PROTEINS Status: Acute Plan: likely due to hypoxia at home yesterday, no evidence ACS (4) Diabetes mellitus type 2, insulin dependent Code(s): E11.9 - TYPE 2 DIABETES MELLITUS WITHOUT COMPLICATIONS; Z79.4 - [facility] (CURRENT) USE OF INSULIN Status: Chronic (5) COPD (chronic obstructive pulmonary disease) Status: Chronic (6) Generalized weakness Code(s): R53.1 - WEAKNESS Status: Acute - Plan Patient requiring increase O2, still on low flow NC O2. On dexamethasone, remdesivir, and lovenox. Continue home insulin, SSI.
[2020-06-19] MEDS ORDERED: FLU VACC QS2020-21(65YR UP)/PF 240 MCG/0.7 ML SYRINGE IM ONE (09:00)
[2020-06-19] MEDS ORDERED: Non-Formulary Item 1 EACH (Tiotropium Bromide 4 GM Inhaler) INH SCH (09:00)
[2020-06-19] MEDS: Enoxaparin Sodium 40 MG/0.4 ML SYRINGE SC SCH ×2 (09:42→20:43)
[2020-06-19] MEDS: Dexamethasone 4 MG TAB PO SCH (09:42)
[2020-06-19] MEDS: Famotidine 20 MG TAB PO SCH ×2 (09:43→20:44)
[2020-06-19] MEDS: Finasteride 5 MG TAB PO SCH (09:43)
[2020-06-19] MEDS: glipiZIDE 5 MG TAB PO SCH ×2 (09:43→17:19)
[2020-06-19] MEDS: Lisinopril 5 MG TAB PO SCH (09:43)
[2020-06-19] MEDS: metFORMIN 500 MG TAB PO SCH ×2 (09:43→17:18)
[2020-06-19] MEDS: HumaLOG 300 UNITS/3 ML VIAL SC PRN ×3 (12:28→21:20)
[2020-06-19 14:44] LABS: ALT (SGPT) 40 U/L (8-55); AST (SGOT) 58 U/L (5-34); Albumin 3.2 g/dL (3.4-4.8); Alkaline Phosphatase 69 U/L (40-110); Bilirubin, Direct 0.3 mg/dL (0.1-0.3); Bilirubin, Total 0.4 mg/dL (0.2-1.2); Protein, Total 6.4 g/dL (5.8-8.1)
[2020-06-19] MEDS: REMDESIVIR (EUA) 100 MG in Sodium Chloride 0.9% 250 ML 230 ML IV SCH (20:43)
[2020-06-19] MEDS: Insulin Glargine 30 UNITS in Pre-Filled Syringe 1 EACH SC SCH (20:44)
[2020-06-19] MEDS: Gabapentin 300 MG CAP PO SCH (20:48)
[2020-06-20 05:33] LABS: #Lymphocytes 0.7 thou/uL (1.20-3.40); #Monocytes 0.5 thou/uL (0.11-0.59); #Neutrophils 2.3 thou/uL (1.40-6.50); %Basophils 0.9 % (0.0-1.0); %Eosinophils 0.3 % (0.0-10.0); %Lymphocytes 20.3 % (21.0-51.0); %Monocytes 13.4 % (0.0-10.0); %Neutrophils 65.1 % (42.0-75.0); Hemoglobin 13.8 g/dL (14.0-18.0); Mean Corpuscular HGB CONC 32.6 g/dL (32.0-36.0); Mean Corpuscular Hemoglobin 30.8 pg (27.0-31.0); Mean Corpuscular Volume 94.6 fL (78.0-98.0); Mean Platelet Volume 8.6 fL (7.4-10.4); Platelet Count 167 thou/uL (130-400); RBC Distribution Width 12.6 % (11.5-14.5); Red Blood Cell (RBC) Count 4.47 mill/uL (4.70-6.10); White Blood Cell (WBC) Count 3.5 thou/uL (4.8-10.8)
[2020-06-20 05:54] LABS: ALT (SGPT) 40 U/L (8-55); AST (SGOT) 54 U/L (5-34); Albumin 2.9 g/dL (3.4-4.8); Alkaline Phosphatase 65 U/L (40-110); Anion Gap 14 mmol/L (10-20); BUN (Urea Nitrogen) 20 mg/dL (8.4-25.7); Bilirubin, Direct 0.2 mg/dL (0.1-0.3); Bilirubin, Total 0.3 mg/dL (0.2-1.2); Calc. Creatinine Clearance 103 mL/min (70-130); Carbon Dioxide 23 mmol/L (23-31); Chloride 105 mmol/L (98-107); Glucose 170 mg/dL (83-110); Potassium 4.1 mmol/L (3.5-5.1); Sodium 138 mmol/L (136-145)
--- NOTE | 2020-06-20 07:29 | PDOC.HOSPP ---
- Subjective Encounter Date: 06/20/20 Encounter Time: 08:30 Subjective: Patient feeling about the same. His O2 sats got worse overnight and now on 5L NC and sating about 90%. No fever. Some anterior chest pain. Mild cough. - Objective Vital Signs & Weight: Vital Signs (12 hours) Temp Pulse Resp BP BP Pulse Ox 06/20/20 05:42 90 L 06/20/20 04:00 98.9 F 65 15 122/67 90 L 06/19/20 20:54 98.5 F 65 20 107/55 L 94 L Weight Weight 210 lb 6.4 oz I&O: 06/19/20 06/20/20 06/21/20 06:59 06:59 06:59 Intake Total 878 1000 Output Total 525 375 Balance 353 625 Result Diagrams: 06/20/20 05:16 06/20/20 05:16 Additional Labs: Accuchecks 06/20/20 06/19/20 06/19/20 06:07 20:52 16:20 POC Glucose 176 H 265 H 225 H 06/19/20 11:44 POC Glucose 302 H Hospitalist ROS - Review of Systems Constitutional: denies: fever, chills Respiratory: reports: cough, SOB with excertion. denies: shortness of breath Cardiovascular: reports: chest pain. denies: palpitations Gastrointestinal: denies: nausea, vomiting, abdominal pain - Medication Medications: Active Medications Generic Name Dose Route Start Last Admin Trade Name Freq PRN Reason Stop Dose Admin Acetaminophen 650 mg 06/18/20 16:48 06/19/20 21:22 Acetaminophen 325 Mg Tab PO 650 mg Q4H PRN Administration Headache/Fever/Mild Pain (1-3) Dexamethasone 6 mg 06/19/20 08:00 06/19/20 09:42 Dexamethasone 4 Mg Tab PO 6 mg QAM-WM NI Administration Enoxaparin Sodium 40 mg 06/18/20 21:00 06/19/20 20:43 Enoxaparin Sodium 40 Mg/0.4 Ml Syringe SC 40 mg 0900,2100 NI Administration Famotidine 20 mg 06/18/20 21:00 06/19/20 20:44 Famotidine 20 Mg Tab PO 20 mg BID NI Administration Finasteride 5 mg 06/19/20 09:00 06/19/20 09:43 Finasteride 5 Mg Tab PO 5 mg DAILY NI Administration Gabapentin 300 mg 06/18/20 21:00 06/19/20 20:48 Gabapentin 300 Mg Cap PO 300 mg HS NI Administration Glipizide 5 mg 06/19/20 09:00 06/19/20 09:43 Glipizide 5 Mg Tab PO 5 mg DAILY NI Administration Glipizide 2.5 mg 06/19/20 17:00 06/19/20 17:19 Glipizide 5 Mg Tab PO 2.5 mg QPM-WM NI Administration Insulin Glargine 30 units/ 0.3 mls @ 0 mls/hr 06/18/20 21:00 06/19/20 20:44 Miscellaneous Medication SC 0.3 mls HS NI Administration Remdesivir 100 mg/ Sodium 250 mls @ 250 mls/hr 06/19/20 20:00 06/19/20 20:43 Chloride IV 06/22/20 20:59 250 mls 2000 NI Administration Insulin Human Lispro 0 units 06/18/20 16:48 06/19/20 17:18 Humalog 300 Units/3 Ml Vial SC 3 unit .MILD SLIDING SCALE PRN Administration Mild Correctional Scale Insulin Human Lispro 0 units 06/18/20 16:48 06/19/20 21:20 Humalog 300 Units/3 Ml Vial SC 3 unit .BEDTIME SLIDING SC PRN Administration Bedtime Correctional Scale Lisinopril 5 mg 06/19/20 09:00 06/19/20 09:43 Lisinopril 5 Mg Tab PO 5 mg DAILY NI Administration Metformin HCl 1,000 mg 06/19/20 08:00 06/19/20 17:18 Metformin 500 Mg Tab PO 1,000 mg BID-WM NI Administration Mometasone Furoate/Formoterol Fumar 2 puff 06/19/20 06:30 06/19/20 21:00 Mometasone 200 Mcg/Formoterol 5 Mcg 120 Puff Inhaler INH 2 puff BID-RT NI Administration Sodium Chloride 10 ml 06/19/20 09:00 06/19/20 20:47 Flush - Normal Saline 10 Ml Syringe IVF 10 ml Q12HR NI Administration - Exam General Appearance: NAD, awake alert ENT: moist mucosa Heart: RRR, no murmur, no gallops, no rubs Respiratory: CTAB, no wheezes, no rales, no ronchi Gastrointestinal: soft, non-tender, non-distended, normal bowel sounds Psychiatric: normal affect, normal behavior, A&O x 3 Hosp A/P (1) Pneumonia due to COVID-19 virus Code(s): U07.1 - COVID-19; J12.89 - OTHER VIRAL PNEUMONIA Status: Acute (2) Acute respiratory failure with hypoxia Code(s): J96.01 - ACUTE RESPIRATORY FAILURE WITH HYPOXIA Status: Acute (3) Elevated troponin Code(s): R77.8 - OTHER SPECIFIED ABNORMALITIES OF PLASMA PROTEINS Status: Acute (4) Diabetes mellitus type 2, insulin dependent Code(s): E11.9 - TYPE 2 DIABETES MELLITUS WITHOUT COMPLICATIONS; Z79.4 - LONG T ERM (CURRENT) USE OF INSULIN Status: Chronic (5) COPD (chronic obstructive pulmonary disease) Status: Chronic (6) Generalized weakness Code(s): R53.1 - WEAKNESS Status: Acute - Plan Patient requiring increased O2, may eventually need high flow O2. On dexamethasone, remdesivir, and lovenox. Continue home insulin, SSI. Will call and update family.
[2020-06-20] MEDS: Mometasone 200 MCG/Formoterol 5 MCG 120 PUFF INHALER INH SCH ×2 (07:52→21:36)
[2020-06-20] MEDS: metFORMIN 500 MG TAB PO SCH ×2 (07:53→17:41)
[2020-06-20] MEDS: Dexamethasone 4 MG TAB PO SCH (07:53)
[2020-06-20] MEDS: Finasteride 5 MG TAB PO SCH (07:54)
[2020-06-20] MEDS: Lisinopril 5 MG TAB PO SCH (07:54)
[2020-06-20] MEDS: Famotidine 20 MG TAB PO SCH ×2 (07:54→21:37)
[2020-06-20] MEDS: glipiZIDE 5 MG TAB PO SCH ×2 (07:55→17:41)
[2020-06-20] MEDS: Acetaminophen 325 MG TAB PO PRN ×2 (07:55→14:28)
[2020-06-20] MEDS: Enoxaparin Sodium 40 MG/0.4 ML SYRINGE SC SCH ×2 (08:26→21:36)
[2020-06-20] MEDS: HumaLOG 300 UNITS/3 ML VIAL SC PRN ×3 (12:00→22:33)
[2020-06-20] MEDS ORDERED: Morphine 2 MG/ML VIAL SLOW IVP PRN (19:38)
[2020-06-20 19:56] LABS: Troponin I Less than 0.010 ng/mL (< 0.028)
--- NOTE | 2020-06-20 20:11 | RAD ---
Portable frontal chest radiograph: 06/20/2020 COMPARISON: 06/18/2020 HISTORY: Covid pneumonia FINDINGS: Increased linear interstitial density with superimposed groundglass opacity again noted wit hin the perihilar regions and lung bases, right greater than left, similar when compared to the prior examination. No pneumothorax or significant pleural effusion. IMPRESSION: No significant interval change.
[2020-06-20] MEDS: REMDESIVIR (EUA) 100 MG in Sodium Chloride 0.9% 250 ML 230 ML IV SCH (21:36)
[2020-06-20] MEDS: Insulin Glargine 30 UNITS in Pre-Filled Syringe 1 EACH SC SCH (21:37)
[2020-06-20] MEDS: Gabapentin 300 MG CAP PO SCH (21:38)
[2020-06-21 05:24] LABS: ALT (SGPT) 42 U/L (8-55); AST (SGOT) 44 U/L (5-34); Albumin 3.2 g/dL (3.4-4.8); Alkaline Phosphatase 73 U/L (40-110); Bilirubin, Direct 0.2 mg/dL (0.1-0.3); Bilirubin, Total 0.4 mg/dL (0.2-1.2); Protein, Total 6.4 g/dL (5.8-8.1)
[2020-06-21] MEDS: Mometasone 200 MCG/Formoterol 5 MCG 120 PUFF INHALER INH SCH ×2 (07:58→17:13)
[2020-06-21] MEDS: Dexamethasone 4 MG TAB PO SCH (07:58)
[2020-06-21] MEDS: metFORMIN 500 MG TAB PO SCH ×2 (08:01→15:57)
[2020-06-21] MEDS: Famotidine 20 MG TAB PO SCH ×2 (08:02→22:59)
[2020-06-21] MEDS: Finasteride 5 MG TAB PO SCH (08:02)
[2020-06-21] MEDS: Enoxaparin Sodium 40 MG/0.4 ML SYRINGE SC SCH ×2 (08:02→22:58)
[2020-06-21] MEDS: glipiZIDE 5 MG TAB PO SCH ×2 (08:02→15:58)
[2020-06-21] MEDS: Lisinopril 5 MG TAB PO SCH (08:02)
[2020-06-21] MEDS: Acetaminophen 325 MG TAB PO PRN ×2 (08:44→15:57)
[2020-06-21] MEDS: Guaifenesin DM 100-10/5 ML UDCUP PO PRN (08:45)
[2020-06-21] MEDS: HumaLOG 300 UNITS/3 ML VIAL SC PRN ×2 (13:11→15:59)
--- NOTE | 2020-06-21 15:29 | PDOC.HOSPP ---
- Subjective Encounter Date: 06/21/20 Encounter Time: 15:24 Subjective: This is an 85-year-old male who recently tested positive for Covid and was hospitalized and was able to go home. He had done well few days following his discharge but unfortunately he started having more respiratory symptoms. He apparently had a fall at home and family called EMS and by the time EMS got to him his O2 saturation was in the high 70s. He was placed on O2 via nasal cannula with significant improvement. Today at the bedside he seems awake and alert and in no distress. Review of his lab work was unremarkable. Chest x-ray shows evidence of worsening bilateral infiltrate consistent with Covid pneumonia. The patient is getting IV antibiotics, some steroids and bronchodilators. - Objective Vital Signs & Weight: Vital Signs (12 hours) Temp Pulse Resp BP BP Pulse Ox 06/21/20 11:03 73 20 119/63 95 06/21/20 08:00 98.1 F 79 18 110/62 93 L 06/21/20 05:12 98.3 F 66 16 108/66 97 Weight Weight 209 lb 4.8 oz I&O: 06/20/20 06/21/20 06/22/20 06:59 06:59 06:59 Intake Total 1120 840 Output Total 375 875 Balance 745 -35 Result Diagrams: 06/20/20 05:16 06/20/20 05:16 Additional Labs: Accuchecks 06/21/20 06/21/20 06/20/20 12:24 05:10 21:47 POC Glucose 201 H 137 H 285 H 06/20/20 17:23 POC Glucose 276 H Radiology Reviewed by me: Yes EKG Reviewed by me: Yes Hospitalist ROS - Review of Systems ROS unobtainable: due to mental status Constitutional: reports: weakness, malaise Respiratory: reports: cough, dry, shortness of breath, hemoptysis, SOB with excertion Cardiovascular: reports: chest pain, palpitations, paroxysmal noc. dyspnea Gastrointestinal: reports: nausea, vomiting Neurological: reports: weakness, numbness - Medication Medications: Active Medications Generic Name Dose Route Start Last Admin Trade Name Freq PRN Reason Stop Dose Admin Acetaminophen 650 mg 06/18/20 16:48 06/21/20 08:44 Acetaminophen 325 Mg Tab PO 650 mg Q4H PRN Administration Headache/Fever/Mild Pain (1-3) Dexamethasone 6 mg 06/19/20 08:00 06/21/20 07:58 Dexamethasone 4 Mg Tab PO 6 mg QAM-WM NI Administration Enoxaparin Sodium 40 mg 06/18/20 21:00 06/21/20 08:02 Enoxaparin Sodium 40 Mg/0.4 Ml Syringe SC 40 mg 0900,2100 NI Administration Famotidine 20 mg 06/18/20 21:00 06/21/20 08:02 Famotidine 20 Mg Tab PO 20 mg BID NI Administration Finasteride 5 mg 06/19/20 09:00 06/21/20 08:02 Finasteride 5 Mg Tab PO 5 mg DAILY NI Administration Gabapentin 300 mg 06/18/20 21:00 06/20/20 21:38 Gabapentin 300 Mg Cap PO 300 mg HS NI Administration Glipizide 5 mg 06/19/20 09:00 06/21/20 08:02 Glipizide 5 Mg Tab PO 5 mg DAILY NI Administration Glipizide 2.5 mg 06/19/20 17:00 06/20/20 17:41 Glipizide 5 Mg Tab PO 2.5 mg QPM-WM NI Administration Guaifenesin/Dextromethorphan 15 ml 06/18/20 16:48 06/21/20 08:45 Guaifenesin Dm 100-10/5 Ml Udcup PO 15 ml Q4H PRN Administration Cough Insulin Glargine 30 units/ 0.3 mls @ 0 mls/hr 06/18/20 21:00 06/20/20 21:37 Miscellaneous Medication SC 0.3 mls HS NI Administration Remdesivir 100 mg/ Sodium 250 mls @ 250 mls/hr 06/19/20 20:00 06/20/20 21:36 Chloride IV 06/22/20 20:59 250 mls 2000 NI Administration Insulin Human Lispro 0 units 06/18/20 16:48 06/21/20 13:11 Humalog 300 Units/3 Ml Vial SC 3 unit .MILD SLIDING SCALE PRN Administration Mild Correctional Scale Insulin Human Lispro 0 units 06/18/20 16:48 06/20/20 22:33 Humalog 300 Units/3 Ml Vial SC 3 unit .BEDTIME SLIDING SC PRN Administration Bedtime Correctional Scale Lisinopril 5 mg 06/19/20 09:00 06/21/20 08:02 Lisinopril 5 Mg Tab PO 5 mg DAILY NI Administration Metformin HCl 1,000 mg 06/19/20 08:00 06/21/20 08:01 Metformin 500 Mg Tab PO 1,000 mg BID-WM NI Administration Mometasone Furoate/Formoterol Fumar 2 puff 06/19/20 06:30 06/21/20 07:58 Mometasone 200 Mcg/Formoterol 5 Mcg 120 Puff Inhaler INH 2 puff BID-RT NI Administration Sodium Chloride 10 ml 06/19/20 09:00 06/21/20 08:03 Flush - Normal Saline 10 Ml Syringe IVF 10 ml Q12HR NI Administration - Exam General Appearance: NAD, awake alert, ill appearing Eye: PERRL, anicteric sclera ENT: normocephalic atraumatic, no oropharyngeal lesions, moist mucosa Neck: supple, symmetric, no JVD, no thyromegaly, no lymphadenopathy Heart: RRR, no murmur, no gallops, no rubs, normal peripheral pulses Respiratory: CTAB, no rales, no ronchi, normal chest expansion, rhonchi, wheezes Gastrointestinal: soft, non-tender, non-distended, normal bowel sounds Extremities: no cyanosis, no clubbing, no edema Neurological: cranial nerve grossly intact, normal sensation to touch, no new deficit Musculoskeletal: generalized weakness Psychiatric: normal affect, normal behavior, A&O x 3 Hosp A/P (1) Acute respiratory failure with hypoxia Code(s): J96.01 - ACUTE RESPIRATORY FAILURE WITH HYPOXIA Status: Acute (2) Pneumonia due to COVID-19 virus Code(s): U07.1 - COVID-19; J12.89 - OTHER VIRAL PNEUMONIA Status: Acute (3) COPD (chronic obstructive pulmonary disease) Status: Chronic Qualifiers: COPD type: chronic bronchitis Chronic bronchitis type: mucopurulent Qualified Code(s): J41.1 - Mucopurulent chronic bronchitis (4) Diabetes mellitus type 2, insulin dependent Code(s): E11.9 - TYPE 2 DIABETES MELLITUS WITHOUT COMPLICATIONS; Z79.4 - RAT POISONER (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 Acute respiratory failure with hypoxia. Suspect secondary to COVID-19 pneumonia. Continue O2 supplementation as needed. 2. COVID-19 pneumonia. Continue IV antibiotics, follow-up on all active cultures, bronchodilators and steroids. #3. COPD. Continue O2 supplementation, bronchodilators and steroids. 4. Diabetes type 2. Continue sliding scale coverage.
[2020-06-21] MEDS: Albuterol 200 PUFF (6.7GM INHALER) INH SCH ×3 (15:30→23:03)
[2020-06-21] MEDS: REMDESIVIR (EUA) 100 MG in Sodium Chloride 0.9% 250 ML 230 ML IV SCH (22:57)
[2020-06-21] MEDS: Gabapentin 300 MG CAP PO SCH (22:59)
[2020-06-21] MEDS: Insulin Glargine 30 UNITS in Pre-Filled Syringe 1 EACH SC SCH (23:00)
[2020-06-22 05:12] LABS: #Lymphocytes 1.2 thou/uL (1.20-3.40); #Monocytes 0.5 thou/uL (0.11-0.59); #Neutrophils 2.9 thou/uL (1.40-6.50); %Basophils 0.3 % (0.0-1.0); %Eosinophils 0.2 % (0.0-10.0); %Lymphocytes 26.1 % (21.0-51.0); %Monocytes 11.2 % (0.0-10.0); %Neutrophils 62.3 % (42.0-75.0); Mean Corpuscular HGB CONC 32.6 g/dL (32.0-36.0); Mean Corpuscular Hemoglobin 30.2 pg (27.0-31.0); Mean Corpuscular Volume 92.7 fL (78.0-98.0); Mean Platelet Volume 8.5 fL (7.4-10.4); Platelet Count 247 thou/uL (130-400); RBC Distribution Width 12.7 % (11.5-14.5); Red Blood Cell (RBC) Count 4.95 mill/uL (4.70-6.10); White Blood Cell (WBC) Count 4.7 thou/uL (4.8-10.8)
[2020-06-22 05:40] LABS: ALT (SGPT) 46 U/L (8-55); AST (SGOT) 52 U/L (5-34); Albumin 3.4 g/dL (3.4-4.8); Alkaline Phosphatase 83 U/L (40-110); Anion Gap 16 mmol/L (10-20); BUN (Urea Nitrogen) 22 mg/dL (8.4-25.7); Bilirubin, Direct 0.2 mg/dL (0.1-0.3); Bilirubin, Total 0.4 mg/dL (0.2-1.2); Calc. Creatinine Clearance 92 mL/min (70-130); Calcium 8.6 mg/dL (7.8-10.44); Carbon Dioxide 23 mmol/L (23-31); Chloride 102 mmol/L (98-107); Glucose 127 mg/dL (83-110); Potassium 4.2 mmol/L (3.5-5.1); Protein, Total 7.1 g/dL (5.8-8.1); Sodium 137 mmol/L (136-145)
[2020-06-22] MEDS: Albuterol 200 PUFF (6.7GM INHALER) INH SCH ×6 (05:51→21:17)
[2020-06-22] MEDS: Mometasone 200 MCG/Formoterol 5 MCG 120 PUFF INHALER INH SCH ×2 (05:52→16:42)
[2020-06-22] MEDS: Dexamethasone 4 MG TAB PO SCH (08:10)
[2020-06-22] MEDS: Enoxaparin Sodium 40 MG/0.4 ML SYRINGE SC SCH ×2 (08:11→21:15)
[2020-06-22] MEDS: glipiZIDE 5 MG TAB PO SCH ×2 (08:11→16:43)
[2020-06-22] MEDS: Lisinopril 5 MG TAB PO SCH (08:11)
[2020-06-22] MEDS: Finasteride 5 MG TAB PO SCH (08:11)
[2020-06-22] MEDS: Famotidine 20 MG TAB PO SCH (08:11)
[2020-06-22] MEDS: metFORMIN 500 MG TAB PO SCH ×2 (08:11→16:44)
--- NOTE | 2020-06-22 12:17 | PDOC.HOSPP ---
- Subjective Encounter Date: 06/22/20 Encounter Time: 12:16 Subjective: This is an 85-year-old patient that I saw this morning. He was admitted to the hospital for COVID-19 pneumonia and respiratory failure. He is doing well but is requiring higher oxygen. His saturation is above 98% but he is on 6 L. I will try to titrate this down. Continue remdesivir and empiric antibiotics. I called and updated the patient's family today. - Objective Vital Signs & Weight: Vital Signs (12 hours) Temp Pulse Resp BP BP BP BP 06/22/20 11:41 97.7 F 80 20 111/64 06/22/20 08:55 114/57 L 137/67 06/22/20 08:35 97.6 F 79 22 H 109/60 06/22/20 06:49 123/77 06/22/20 04:00 97.9 F 63 29 H 180/97 H Pulse Ox 06/22/20 11:41 98 06/22/20 08:55 06/22/20 08:35 97 06/22/20 06:49 06/22/20 04:00 100 Weight Weight 209 lb 4.8 oz I&O: 06/21/20 06/22/20 06/23/20 06:59 06:59 06:59 Intake Total 840 1830 Output Total 875 1465 Balance -35 365 Result Diagrams: 06/22/20 04:41 06/22/20 04:41 Additional Labs: Accuchecks 06/22/20 06/21/20 06/21/20 11:40 23:20 15:45 POC Glucose 157 H 160 H 246 H 06/21/20 12:24 POC Glucose 201 H Radiology Reviewed by me: Yes Hospitalist ROS - Review of Systems Constitutional: reports: weakness, malaise Respiratory: reports: shortness of breath, SOB with excertion, pleuritic pain Gastrointestinal: reports: nausea Neurological: reports: weakness - Medication Medications: Active Medications Generic Name Dose Route Start Last Admin Trade Name Freq PRN Reason Stop Dose Admin Acetaminophen 650 mg 06/18/20 16:48 06/21/20 15:57 Acetaminophen 325 Mg Tab PO 650 mg Q4H PRN Administration Headache/Fever/Mild Pain (1-3) Albuterol Sulfate 2 puff 06/21/20 14:30 06/22/20 10:52 Albuterol 200 Puff (6.7gm Inhaler) INH 2 puff A1HS-OC NI Administration Dexamethasone 6 mg 06/19/20 08:00 06/22/20 08:10 Dexamethasone 4 Mg Tab PO 6 mg QAM-WM NI Administration Enoxaparin Sodium 40 mg 06/18/20 21:00 06/22/20 08:11 Enoxaparin Sodium 40 Mg/0.4 Ml Syringe SC 40 mg 0900,2100 NI Administration Finasteride 5 mg 06/19/20 09:00 06/22/20 08:11 Finasteride 5 Mg Tab PO 5 mg DAILY NI Administration Gabapentin 300 mg 06/18/20 21:00 06/21/20 22:59 Gabapentin 300 Mg Cap PO 300 mg HS NI Administration Glipizide 5 mg 06/19/20 09:00 06/22/20 08:11 Glipizide 5 Mg Tab PO 5 mg DAILY NI Administration Glipizide 2.5 mg 06/19/20 17:00 06/21/20 15:58 Glipizide 5 Mg Tab PO 2.5 mg QPM-WM NI Administration Guaifenesin/Dextromethorphan 15 ml 06/18/20 16:48 06/21/20 08:45 Guaifenesin Dm 100-10/5 Ml Udcup PO 15 ml Q4H PRN Administration Cough Insulin Glargine 30 units/ 0.3 mls @ 0 mls/hr 06/18/20 21:00 06/21/20 23:00 Miscellaneous Medication SC 0.3 mls HS NI Administration Remdesivir 100 mg/ Sodium 250 mls @ 250 mls/hr 06/19/20 20:00 06/21/20 22:57 Chloride IV 06/22/20 20:59 250 mls 2000 NI Administration Insulin Human Lispro 0 units 06/18/20 16:48 06/21/20 15:59 Humalog 300 Units/3 Ml Vial SC 3 unit .MILD SLIDING SCALE PRN Administration Mild Correctional Scale Insulin Human Lispro 0 units 06/18/20 16:48 06/20/20 22:33 Humalog 300 Units/3 Ml Vial SC 3 unit .BEDTIME SLIDING SC PRN Administration Bedtime Correctional Scale Lisinopril 5 mg 06/19/20 09:00 06/22/20 08:11 Lisinopril 5 Mg Tab PO 5 mg DAILY NI Administration Metformin HCl 1,000 mg 06/19/20 08:00 06/22/20 08:11 Metformin 500 Mg Tab PO 1,000 mg BID-WM NI Administration Mometasone Furoate/Formoterol Fumar 2 puff 06/19/20 06:30 06/22/20 05:52 Mometasone 200 Mcg/Formoterol 5 Mcg 120 Puff Inhaler INH 2 puff BID-RT NI Administration Sodium Chloride 10 ml 06/19/20 09:00 06/22/20 08:12 Flush - Normal Saline 10 Ml Syringe IVF 10 ml Q12HR NI Administration - Exam General Appearance: awake alert, ill appearing Eye: PERRL ENT: normocephalic atraumatic, no oropharyngeal lesions, moist mucosa Neck: supple, symmetric, no JVD Heart: RRR, no murmur, no gallops, no rubs, normal peripheral pulses Respiratory: CTAB, no wheezes, no rales, no ronchi, normal chest expansion Gastrointestinal: soft, non-tender, non-distended, normal bowel sounds, no palpable masses Neurological: cranial nerve grossly intact, normal sensation to touch Musculoskeletal: normal tone, normal strength Psychiatric: normal affect, normal behavior, A&O x 3, oriented to person Hosp A/P (1) Acute respiratory failure with hypoxia Code(s): J96.01 - ACUTE RESPIRATORY FAILURE WITH HYPOXIA Status: Acute (2) Pneumonia due to COVID-19 virus Code(s): U07.1 - COVID-19; J12.89 - OTHER VIRAL PNEUMONIA Status: Acute (3) COPD (chronic obstructive pulmonary disease) Status: Chronic Qualifiers: COPD type: chronic bronchitis Chronic bronchitis type: mucopurulent Qualified Code(s): J41.1 - Mucopurulent chronic bronchitis (4) Diabetes mellitus type 2, insulin dependent Code(s): E11.9 - TYPE 2 DIABETES MELLITUS WITHOUT COMPLICATIONS; Z79.4 - MCC (CURRENT) 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 Acute respiratory failure with hypoxia. Suspect secondary to COVID-19 pneumonia. Continue O2 supplementation as needed. 06/22/2020. He is requiring a little more oxygen according to nursing staff. However his saturation is above 95%. I am going to try to wean him down. Respiratory failure likely related to COVID-19 pneumonia. 2. COVID-19 pneumonia. Continue IV antibiotics, follow-up on all active cultures, bronchodilators and steroids. 06/22/2020. He is tolerating antibiotics. He is getting remdesivir as well. We will continue bronchodilators and steroids. #3. COPD. Continue O2 supplementation, bronchodilators and steroids. 06/22/2020. Continue breathing treatment. We will keep on O2. 4. Diabetes type 2. Continue sliding scale coverage.
[2020-06-22] MEDS: HumaLOG 300 UNITS/3 ML VIAL SC PRN ×2 (17:13→21:16)
[2020-06-22] MEDS: REMDESIVIR (EUA) 100 MG in Sodium Chloride 0.9% 250 ML 230 ML IV SCH (21:15)
[2020-06-22] MEDS: Insulin Glargine 30 UNITS in Pre-Filled Syringe 1 EACH SC SCH (21:15)
[2020-06-22] MEDS: Gabapentin 300 MG CAP PO SCH (21:16)
[2020-06-22] MEDS: Acetaminophen 325 MG TAB PO PRN (23:08)
[2020-06-23] MEDS: Albuterol 200 PUFF (6.7GM INHALER) INH SCH ×7 (04:20→22:30)
[2020-06-23] MEDS: Mometasone 200 MCG/Formoterol 5 MCG 120 PUFF INHALER INH SCH ×2 (06:30→17:25)
--- NOTE | 2020-06-23 09:36 | RAD ---
PORTABLE CHEST: Date: 06/23/2020 INDICATION: Shortness of breath. COMPARISON: 06/20/2020. FINDINGS/IMPRESSION: Cardiomegaly with mild vascular congestion. Diffuse interstitial and hazy alveolar infiltrates are se en bilaterally. This could represent edema or superimposed inflammatory process. No consolidation. No significant effusion. POS: AGW
[2020-06-23] MEDS: metFORMIN 500 MG TAB PO SCH ×2 (09:40→17:08)
[2020-06-23] MEDS: Lisinopril 5 MG TAB PO SCH (09:40)
[2020-06-23] MEDS: glipiZIDE 5 MG TAB PO SCH ×2 (09:40→17:07)
[2020-06-23] MEDS: Dexamethasone 4 MG TAB PO SCH (09:41)
[2020-06-23] MEDS: Finasteride 5 MG TAB PO SCH (09:41)
[2020-06-23] MEDS: Enoxaparin Sodium 40 MG/0.4 ML SYRINGE SC SCH ×2 (09:43→21:26)
--- NOTE | 2020-06-23 10:52 | PDOC.HOSPP ---
- Subjective Encounter Date: 06/23/20 Encounter Time: 10:51 Subjective: Patient was seen and evaluated this morning. He reports just not feeling very well. He continues to require oxygen at 6 L and belly saturating around 90-92. This is extremely concerning and his most recent chest x-ray shows worsening of bilateral infiltrates which could either be vascular congestion versus consolidation. His BN P was normal but I am going to go ahead and try him on some Lasix. His prognosis remains guarded at this time. - Objective Vital Signs & Weight: Vital Signs (12 hours) Temp Pulse Resp BP BP Pulse Ox 06/23/20 09:45 97.8 F 66 20 106/64 91 L 06/23/20 07:44 94 L 06/23/20 04:00 98.6 F 59 L 20 110/71 94 L 06/22/20 23:10 97.6 F 72 13 107/66 95 Weight Weight 209 lb 4.8 oz I&O: 06/22/20 06/23/20 06/24/20 06:59 06:59 06:59 Intake Total 1830 1420 Output Total 1465 675 Balance 365 745 Result Diagrams: 06/22/20 04:41 06/22/20 04:41 Additional Labs: Accuchecks 06/23/20 06/22/20 06/22/20 05:51 19:44 17:00 POC Glucose 120 H 379 H 274 H 06/22/20 11:40 POC Glucose 157 H Radiology Reviewed by me: Yes EKG Reviewed by me: Yes Hospitalist ROS - Review of Systems ROS unobtainable: due to mental status Respiratory: reports: shortness of breath, SOB with excertion Cardiovascular: reports: paroxysmal noc. dyspnea Gastrointestinal: reports: nausea - Medication Medications: Active Medications Generic Name Dose Route Start Last Admin Trade Name Freq PRN Reason Stop Dose Admin Acetaminophen 650 mg 06/18/20 16:48 06/22/20 23:08 Acetaminophen 325 Mg Tab PO 650 mg Q4H PRN Administration Headache/Fever/Mild Pain (1-3) Albuterol Sulfate 2 puff 06/21/20 14:30 06/23/20 09:43 Albuterol 200 Puff (6.7gm Inhaler) INH 2 puff [id number] NI Administration Dexamethasone 6 mg 06/19/20 08:00 06/23/20 09:41 Dexamethasone 4 Mg Tab PO 6 mg QAM-WM NI Administration Enoxaparin Sodium 40 mg 06/18/20 21:00 06/23/20 09:43 Enoxaparin Sodium 40 Mg/0.4 Ml Syringe SC 40 mg 09,2100 IN Administration Finasteride 5 mg 06/19/20 09:00 06/23/20 09:41 Finasteride 5 Mg Tab PO 5 mg DAILY NI Administration Gabapentin 300 mg 06/18/20 21:00 06/22/20 21:16 Gabapentin 300 Mg Cap PO 300 mg HS NI Administration Glipizide 5 mg 06/19/20 09:00 06/23/20 09:40 Glipizide 5 Mg Tab PO 5 mg DAILY NI Administration Glipizide 2.5 mg 06/19/20 17:00 06/22/20 16:43 Glipizide 5 Mg Tab PO 2.5 mg QPM-WM NI Administration Guaifenesin/Dextromethorphan 15 ml 06/18/20 16:48 06/21/20 08:45 Guaifenesin Dm 100-10/5 Ml Udcup PO 15 ml Q4H PRN Administration Cough Insulin Glargine 30 units/ 0.3 mls @ 0 mls/hr 06/18/20 21:00 06/22/20 21:15 Miscellaneous Medication SC 0.3 mls HS NI Administration Insulin Human Lispro 0 units 06/18/20 16:48 06/22/20 17:13 Humalog 300 Units/3 Ml Vial SC 4 unit .MILD SLIDING SCALE PRN Administration Mild Correctional Scale Insulin Human Lispro 0 units 06/18/20 16:48 06/22/20 21:16 Humalog 300 Units/3 Ml Vial SC 5 unit .BEDTIME SLIDING SC PRN Administration Bedtime Correctional Scale Lisinopril 5 mg 06/19/20 09:00 06/23/20 09:40 Lisinopril 5 Mg Tab PO 5 mg DAILY NI Administration Metformin HCl 1,000 mg 06/19/20 08:00 06/23/20 09:40 Metformin 500 Mg Tab PO 1,000 mg BID-WM NI Administration Mometasone Furoate/Formoterol Fumar 2 puff 06/19/20 06:30 06/23/20 06:30 Mometasone 200 Mcg/Formoterol 5 Mcg 120 Puff Inhaler INH 2 puff BID-RT NI Administration Pantoprazole Sodium 40 mg 06/23/20 09:00 06/23/20 09:40 Pantoprazole 40 Mg Tab PO 40 mg DAILY NI Administration Sodium Chloride 10 ml 06/19/20 09:00 06/23/20 09:43 Flush - Normal Saline 10 Ml Syringe IVF 10 ml Q12HR NI Administration - Exam General Appearance: awake alert, ill appearing Eye: PERRL, anicteric sclera ENT: normocephalic atraumatic, no oropharyngeal lesions, moist mucosa Neck: supple, symmetric, no JVD, no thyromegaly, no lymphadenopathy Heart: RRR, no murmur, no gallops, no rubs, normal peripheral pulses Respiratory: CTAB, no wheezes Gastrointestinal: soft, non-tender, non-distended, normal bowel sounds, no palpable masses Extremities: no cyanosis, no clubbing, 1+ LE edema Skin: normal turgor, no lesions Neurological: cranial nerve grossly intact, normal sensation to touch Musculoskeletal: normal tone, generalized weakness Psychiatric: normal affect, normal behavior, A&O x 3 Hosp A/P (1) Acute respiratory failure with hypoxia Code(s): J96.01 - ACUTE RESPIRATORY FAILURE WITH HYPOXIA Status: Acute (2) Pneumonia due to COVID-19 virus Code(s): U07.1 - COVID-19; J12.89 - OTHER VIRAL PNEUMONIA Status: Acute (3) COPD (chronic obstructive pulmonary disease) Status: Chronic Qualifiers: COPD type: chronic bronchitis Chronic bronchitis type: mucopurulent Qualified Code(s): J41.1 - Mucopurulent chronic bronchitis (4) Diabetes mellitus type 2, insulin dependent Code(s): E11.9 - TYPE 2 DIABETES MELLITUS WITHOUT COMPLICATIONS; 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 Acute respiratory failure with hypoxia. Suspect secondary to COVID-19 pneumonia. Continue O2 supplementation as needed. 06/22/2020. He is requiring a little more oxygen according to nursing staff. However his saturation is above 95%. I am going to try to wean him down. Respiratory failure likely related to COVID-19 pneumonia. 06/23/2020. He continues to require O2 at 6 L/min. An attempt to wean him down was unsuccessful yesterday. We will continue to provide his and hopefully wean as tolerated. 2. COVID-19 pneumonia. Continue IV antibiotics, follow-up on all active cultures, bronchodilators and steroids. 06/22/2020. He is tolerating antibiotics. He is getting remdesivir as well. We will continue bronchodilators and steroids. 06/23/2020. This has worsened considerably. He will continue to remdesivir. Continue current management plan. #3. COPD. Continue O2 supplementation, bronchodilators and steroids. 06/22/2020. Continue breathing treatment. We will keep on O2. 4. Diabetes type 2. Continue sliding scale coverage.
[2020-06-23] MEDS ORDERED: Furosemide 40 MG/4 ML VIAL SLOW IVP SCH (11:00)
[2020-06-23] MEDS: HumaLOG 300 UNITS/3 ML VIAL SC PRN ×2 (12:43→18:13)
[2020-06-23] MEDS: Acetaminophen 325 MG TAB PO PRN ×2 (12:44→17:09)
[2020-06-23] MEDS: Gabapentin 300 MG CAP PO SCH (21:24)
[2020-06-23] MEDS: Insulin Glargine 30 UNITS in Pre-Filled Syringe 1 EACH SC SCH (21:26)
[2020-06-24] MEDS: Albuterol 200 PUFF (6.7GM INHALER) INH SCH ×6 (02:18→20:31)
[2020-06-24] MEDS: Acetaminophen 325 MG TAB PO PRN ×3 (03:26→20:30)
[2020-06-24 05:15] LABS: #Monocytes 0.5 thou/uL (0.11-0.59); #Neutrophils 3.2 thou/uL (1.40-6.50); %Basophils 0.7 % (0.0-1.0); %Eosinophils 0.3 % (0.0-10.0); %Lymphocytes 21.6 % (21.0-51.0); %Monocytes 9.5 % (0.0-10.0); Hemoglobin 14.1 g/dL (14.0-18.0); Mean Corpuscular HGB CONC 32.2 g/dL (32.0-36.0); Mean Corpuscular Hemoglobin 30.1 pg (27.0-31.0); Mean Corpuscular Volume 93.6 fL (78.0-98.0); Mean Platelet Volume 8.5 fL (7.4-10.4); Platelet Count 245 thou/uL (130-400); RBC Distribution Width 12.7 % (11.5-14.5); Red Blood Cell (RBC) Count 4.69 mill/uL (4.70-6.10); White Blood Cell (WBC) Count 4.7 thou/uL (4.8-10.8)
[2020-06-24 05:48] LABS: Anion Gap 16 mmol/L (10-20); BUN (Urea Nitrogen) 27 mg/dL (8.4-25.7); Calc. Creatinine Clearance 91 mL/min (70-130); Calcium 8.7 mg/dL (7.8-10.44); Carbon Dioxide 28 mmol/L (23-31); Chloride 101 mmol/L (98-107); Glucose 160 mg/dL (83-110); Sodium 141 mmol/L (136-145)
[2020-06-24] MEDS: Mometasone 200 MCG/Formoterol 5 MCG 120 PUFF INHALER INH SCH ×2 (05:57→18:27)
[2020-06-24] MEDS: HumaLOG 300 UNITS/3 ML VIAL SC PRN ×3 (05:57→16:12)
[2020-06-24] MEDS: Finasteride 5 MG TAB PO SCH (08:53)
[2020-06-24] MEDS: glipiZIDE 5 MG TAB PO SCH ×2 (08:53→16:32)
[2020-06-24] MEDS: metFORMIN 500 MG TAB PO SCH ×2 (08:53→16:32)
[2020-06-24] MEDS: Lisinopril 5 MG TAB PO SCH (08:54)
[2020-06-24] MEDS: Dexamethasone 4 MG TAB PO SCH (08:54)
[2020-06-24] MEDS: Enoxaparin Sodium 40 MG/0.4 ML SYRINGE SC SCH ×2 (08:56→20:30)
--- NOTE | 2020-06-24 09:19 | EKG ---
Test Reason : Blood Pressure : / mmHG Vent. Rate : 072 BPM Atrial Rate : 072 BPM P-R Int : 186 ms QRS Dur : 084 ms QT Int : 408 ms P-R-T Axes : 036 -10 016 degrees QTc Int : 446 ms Normal sinus rhythm Low voltage QRS Borderline ECG When compared with ECG of 18-JUN-2020 11:52, No significant change was found Confirmed by NASIM LOWRY MD ([id number]) on 06/24/2020 9:18:50 AM Referred By: SAM PIRES Confirmed By:NASIM LOWRY MD
--- NOTE | 2020-06-24 12:44 | PDOC.HOSPP ---
- Subjective Encounter Date: 06/24/20 Encounter Time: 12:43 Subjective: I saw and evaluated this patient this morning. He seemed a little bit more confused however. Clinically he is doing okay from the Covid standpoint. He is saturating around 97% on 6 L. We will go ahead and titrate this downwards. - Objective Vital Signs & Weight: Vital Signs (12 hours) Temp Pulse Resp BP BP Pulse Ox 06/24/20 11:31 98.1 F 62 20 96/58 L 93 L 06/24/20 08:55 97.9 F 67 20 104/57 L 98 06/24/20 08:00 96 06/24/20 04:00 97.5 F L 56 L 18 106/65 96 06/24/20 03:18 97.6 F 65 17 105/65 90 L Weight Weight 209 lb 4.8 oz I&O: 06/23/20 06/24/20 06/25/20 06:59 06:59 06:59 Intake Total 1420 1000 Output Total 675 1700 Balance 745 -700 Result Diagrams: 06/24/20 05:00 06/24/20 05:00 Additional Labs: Accuchecks 06/24/20 06/23/20 06/23/20 10:24 21:21 17:29 POC Glucose 166 H 271 H 292 H Radiology Reviewed by me: Yes EKG Reviewed by me: Yes Hospitalist ROS - Review of Systems ROS unobtainable: due to mental status Constitutional: reports: sweats, weakness, malaise Respiratory: reports: cough, dry, shortness of breath, hemoptysis, SOB with excertion Gastrointestinal: reports: nausea, vomiting - Medication Medications: Active Medications Generic Name Dose Route Start Last Admin Trade Name Freq PRN Reason Stop Dose Admin Acetaminophen 650 mg 06/18/20 16:48 06/24/20 09:09 Acetaminophen 325 Mg Tab PO 650 mg Q4H PRN Administration Headache/Fever/Mild Pain (1-3) Albuterol Sulfate 2 puff 06/21/20 14:30 06/24/20 09:56 Albuterol 200 Puff (6.7gm Inhaler) INH 2 puff [id number] NI Administration Dexamethasone 6 mg 06/19/20 08:00 06/24/20 08:54 Dexamethasone 4 Mg Tab PO 6 mg QAM-WM NI Administration Enoxaparin Sodium 40 mg 06/18/20 21:00 06/24/20 08:56 Enoxaparin Sodium 40 Mg/0.4 Ml Syringe SC 40 mg 0900,2100 NI Administration Finasteride 5 mg 06/19/20 09:00 06/24/20 08:53 Finasteride 5 Mg Tab PO 5 mg DAILY NI Administration Gabapentin 300 mg 06/18/20 21:00 06/23/20 21:24 Gabapentin 300 Mg Cap PO 300 mg HS NI Administration Glipizide 5 mg 06/19/20 09:00 06/24/20 08:53 Glipizide 5 Mg Tab PO 5 mg DAILY NI Administration Glipizide 2.5 mg 06/19/20 17:00 06/23/20 17:07 Glipizide 5 Mg Tab PO 2.5 mg QPM-WM NI Administration Guaifenesin/Dextromethorphan 15 ml 06/18/20 16:48 06/21/20 08:45 Guaifenesin Dm 100-10/5 Ml Udcup PO 15 ml Q4H PRN Administration Cough Insulin Glargine 30 units/ 0.3 mls @ 0 mls/hr 06/18/20 21:00 06/23/20 21:26 Miscellaneous Medication SC 0.3 mls HS NI Administration Insulin Human Lispro 0 units 06/18/20 16:48 06/24/20 12:06 Humalog 300 Units/3 Ml Vial SC 2 unit .MILD SLIDING SCALE PRN Administration Mild Correctional Scale Insulin Human Lispro 0 units 06/18/20 16:48 06/22/20 21:16 Humalog 300 Units/3 Ml Vial SC 5 unit .BEDTIME SLIDING SC PRN Administration Bedtime Correctional Scale Lisinopril 5 mg 06/19/20 09:00 06/24/20 08:54 Lisinopril 5 Mg Tab PO 5 mg DAILY NI Administration Metformin HCl 1,000 mg 06/19/20 08:00 06/24/20 08:53 Metformin 500 Mg Tab PO 1,000 mg BID-WM NI Administration Mometasone Furoate/Formoterol Fumar 2 puff 06/19/20 06:30 06/24/20 05:57 Mometasone 200 Mcg/Formoterol 5 Mcg 120 Puff Inhaler INH 2 puff BID-RT NI Administration Pantoprazole Sodium 40 mg 06/23/20 09:00 06/24/20 08:53 Pantoprazole 40 Mg Tab PO 40 mg DAILY NI Administration Sodium Chloride 10 ml 06/19/20 09:00 06/24/20 08:57 Flush - Normal Saline 10 Ml Syringe IVF 10 ml Q12HR NI Administration - Exam General Appearance: NAD, awake alert, ill appearing Eye: PERRL, anicteric sclera ENT: normocephalic atraumatic, no oropharyngeal lesions Neck: supple, symmetric, no JVD, no thyromegaly, no lymphadenopathy Heart: RRR, no murmur, no gallops, no rubs, normal peripheral pulses Respiratory: no ronchi, normal chest expansion, rales, wheezes Gastrointestinal: soft, non-tender, non-distended, normal bowel sounds, no palpable masses Neurological: cranial nerve grossly intact, normal sensation to touch, no weakness, no focal deficits Musculoskeletal: normal tone, normal strength, no muscle wasting Psychiatric: normal affect, normal behavior, A&O x 3, flat affect Hosp A/P (1) Acute respiratory failure with hypoxia Code(s): J96.01 - ACUTE RESPIRATORY FAILURE WITH HYPOXIA Status: Acute (2) Pneumonia due to COVID-19 virus Code(s): U07.1 - COVID-19; J12.89 - OTHER VIRAL PNEUMONIA Status: Acute (3) COPD (chronic obstructive pulmonary disease) Status: Chronic Qualifiers: COPD type: chronic bronchitis Chronic bronchitis type: mucopurulent Qu alified Code(s): J41.1 - Mucopurulent chronic bronchitis (4) Diabetes mellitus type 2, insulin dependent Code(s): E11.9 - TYPE 2 DIABETES MELLITUS WITHOUT COMPLICATIONS; Z79.4 - SNF (CURRENT) 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 Acute respiratory failure with hypoxia. Suspect secondary to COVID-19 pneumonia. Continue O2 supplementation as needed. 06/22/2020. He is requiring a little more oxygen according to nursing staff. However his sa turation is above 95%. I am going to try to wean him down. Respiratory failure likely related to COVID-19 pneumonia. 06/23/2020. He continues to require O2 at 6 L/min. An attempt to wean him down was unsuccessful yesterday. We will continue to provide his and hopefully wean as tolerated. 06/24/2020. We have weaned him down to 4 L by nasal cannula. Continue to titrate this down. 2. COVID-19 pneumonia. Continue IV antibiotics, follow-up on all active cultures, bronchodilators and steroids. 06/22/2020. He is tolerating antibiotics. He is getting remdesivir as well. We will continue bronchodilators and steroids. 06/23/2020. This has worsened considerably. He will continue to remdesivir. Continue current management plan. #3. COPD. Continue O2 supplementation, bronchodilators and steroids. 06/22/2020. Continue breathing treatment. We will keep on O2. 4. Diabetes type 2. Continue sliding scale coverage.
[2020-06-24] MEDS ORDERED: Furosemide 40 MG/4 ML VIAL SLOW IVP SCH (13:00)
[2020-06-24] MEDS: Cefepime 1 GM in Sodium Chloride 0.9% 100 ML IVPB SCH (15:07)
[2020-06-24] MEDS: Gabapentin 300 MG CAP PO SCH (20:30)
[2020-06-24] MEDS: Insulin Glargine 30 UNITS in Pre-Filled Syringe 1 EACH SC SCH (20:57)
[2020-06-25] MEDS: Cefepime 1 GM in Sodium Chloride 0.9% 100 ML IVPB SCH ×2 (01:55→14:36)
[2020-06-25] MEDS: Acetaminophen 325 MG TAB PO PRN ×3 (01:56→22:35)
[2020-06-25] MEDS: Albuterol 200 PUFF (6.7GM INHALER) INH SCH ×6 (01:56→22:34)
[2020-06-25] MEDS: Guaifenesin DM 100-10/5 ML UDCUP PO PRN (01:56)
[2020-06-25 05:47] LABS: #Lymphocytes 1.1 thou/uL (1.20-3.40); #Monocytes 0.4 thou/uL (0.11-0.59); #Neutrophils 4.2 thou/uL (1.40-6.50); %Eosinophils 0.4 % (0.0-10.0); %Lymphocytes 18.3 % (21.0-51.0); %Monocytes 7.7 % (0.0-10.0); %Neutrophils 73.6 % (42.0-75.0); Hemoglobin 14.8 g/dL (14.0-18.0); Mean Corpuscular HGB CONC 32.4 g/dL (32.0-36.0); Mean Corpuscular Hemoglobin 30.1 pg (27.0-31.0); Mean Corpuscular Volume 92.8 fL (78.0-98.0); Mean Platelet Volume 8.5 fL (7.4-10.4); Platelet Count 259 thou/uL (130-400); RBC Distribution Width 12.6 % (11.5-14.5); Red Blood Cell (RBC) Count 4.92 mill/uL (4.70-6.10); White Blood Cell (WBC) Count 5.7 thou/uL (4.8-10.8)
[2020-06-25 06:11] LABS: Anion Gap 16 mmol/L (10-20); BUN (Urea Nitrogen) 28 mg/dL (8.4-25.7); Calc. Creatinine Clearance 92 mL/min (70-130); Calcium 8.8 mg/dL (7.8-10.44); Carbon Dioxide 26 mmol/L (23-31); Chloride 99 mmol/L (98-107); Glucose 111 mg/dL (83-110); Potassium 3.8 mmol/L (3.5-5.1); Sodium 137 mmol/L (136-145)
[2020-06-25] MEDS: Mometasone 200 MCG/Formoterol 5 MCG 120 PUFF INHALER INH SCH ×2 (06:57→17:59)
[2020-06-25] MEDS: Enoxaparin Sodium 40 MG/0.4 ML SYRINGE SC SCH ×2 (09:21→21:03)
[2020-06-25] MEDS: Finasteride 5 MG TAB PO SCH (09:22)
[2020-06-25] MEDS: glipiZIDE 5 MG TAB PO SCH ×2 (09:22→16:29)
[2020-06-25] MEDS: metFORMIN 500 MG TAB PO SCH ×2 (09:22→16:29)
[2020-06-25] MEDS: Dexamethasone 4 MG TAB PO SCH (09:22)
--- NOTE | 2020-06-25 16:02 | PDOC.HOSPP ---
- Subjective Encounter Date: 06/25/20 Encounter Time: 15:59 Subjective: Patient was seen and evaluated today. This 85-year-old is being treated for Covid pneumonia. He does have waxing and waning mental state. He is being weaned down on O2. Currently he is on 2 and half liters of nasal cannula and his saturation is above 95%. - Objective Vital Signs & Weight: Vital Signs (12 hours) Temp Pulse Resp BP BP Pulse Ox 06/25/20 11:18 97.9 F 66 18 92/53 L 98 06/25/20 09:20 98.1 F 81 24 H 106/61 94 L 06/25/20 04:00 96.2 F L 61 18 91/59 L 94 L Weight Weight 209 lb 4.8 oz I&O: 06/24/20 06/25/20 06/26/20 06:59 06:59 06:59 Intake Total 1000 950 Output Total 1700 900 Balance -700 50 Result Diagrams: 06/25/20 05:20 06/25/20 05:20 Additional Labs: Accuchecks 06/25/20 06/24/20 06/24/20 11:16 20:36 16:11 POC Glucose 176 H 265 H 250 H Radiology Reviewed by me: Yes EKG Reviewed by me: Yes Hospitalist ROS - Review of Systems ROS unobtainable: due to mental status Constitutional: reports: weakness, malaise Respiratory: reports: shortness of breath - Medication Medications: Active Medications Generic Name Dose Route Start Last Admin Trade Name Freq PRN Reason Stop Dose Admin Acetaminophen 650 mg 06/18/20 16:48 06/25/20 09:21 Acetaminophen 325 Mg Tab PO 650 mg Q4H PRN Administration Headache/Fever/Mild Pain (1-3) Albuterol Sulfate 2 puff 06/21/20 14:30 06/25/20 14:35 Albuterol 200 Puff (6.7gm Inhaler) INH 2 puff [id number] NI Administration Dexamethasone 6 mg 06/19/20 08:00 06/25/20 09:22 Dexamethasone 4 Mg Tab PO 6 mg QAM-WM NI Administration Enoxaparin Sodium 40 mg 06/18/20 21:00 06/25/20 09:21 Enoxaparin Sodium 40 Mg/0.4 Ml Syringe SC 40 mg 0900,2100 NI Administration Finasteride 5 mg 06/19/20 09:00 06/25/20 09:22 Finasteride 5 Mg Tab PO 5 mg DAILY NI Administration Gabapentin 300 mg 06/18/20 21:00 06/24/20 20:30 Gabapentin 300 Mg Cap PO 300 mg HS NI Administration Glipizide 5 mg 06/19/20 09:00 06/25/20 09:22 Glipizide 5 Mg Tab PO 5 mg DAILY NI Administration Glipizide 2.5 mg 06/19/20 17:00 06/24/20 16:32 Glipizide 5 Mg Tab PO 2.5 mg QPM-WM NI Administration Guaifenesin/Dextromethorphan 15 ml 06/18/20 16:48 06/25/20 01:56 Guaifenesin Dm 100-10/5 Ml Udcup PO 15 ml Q4H PRN Administration Cough Insulin Glargine 30 units/ 0.3 mls @ 0 mls/hr 06/18/20 21:00 06/24/20 20:57 Miscellaneous Medication SC 0.3 mls HS NI Administration Cefepime HCl 1 gm/ Sodium 100 mls @ 200 mls/hr 06/24/20 13:00 06/25/20 14:36 Chloride IVPB 100 mls 0100,1300 NI Administration Insulin Human Lispro 0 units 06/18/20 16:48 06/24/20 16:12 Humalog 300 Units/3 Ml Vial SC 3 unit .MILD SLIDING SCALE PRN Administration Mild Correctional Scale Insulin Human Lispro 0 units 06/18/20 16:48 06/22/20 21:16 Humalog 300 Units/3 Ml Vial SC 5 unit .BEDTIME SLIDING SC PRN Administration Bedtime Correctional Scale Metformin HCl 1,000 mg 06/19/20 08:00 06/25/20 09:22 Metformin 500 Mg Tab PO 1,000 mg BID-WM NI Administration Mometasone Furoate/Formoterol Fumar 2 puff 06/19/20 06:30 06/25/20 06:57 Mometasone 200 Mcg/Formoterol 5 Mcg 120 Puff Inhaler INH 2 puff BID-RT NI Administration Pantoprazole Sodium 40 mg 06/23/20 09:00 06/25/20 09:22 Pantoprazole 40 Mg Tab PO 40 mg DAILY NI Administration Sodium Chloride 10 ml 06/19/20 09:00 06/25/20 09:22 Flush - Normal Saline 10 Ml Syringe IVF 10 ml Q12HR NI Administration - Exam General Appearance: awake alert, ill appearing Eye: PERRL, anicteric sclera ENT: normocephalic atraumatic, no oropharyngeal lesions, moist mucosa Neck: supple, symmetric, no JVD, no thyromegaly, no lymphadenopathy Heart: RRR, no murmur, no gallops, no rubs, normal peripheral pulses Respiratory: CTAB, no wheezes, no rales, no ronchi, normal chest expansion, no tachypnea Gastrointestinal: soft, non-tender, non-distended, normal bowel sounds, no palpable masses, no hepatomegaly Neurological: cranial nerve grossly intact, normal sensation to touch Musculoskeletal: normal tone, normal strength, generalized weakness Psychiatric: normal affect, normal behavior, A&O x 3 Hosp A/P (1) Acute respiratory failure with hypoxia Code(s): J96.01 - ACUTE RESPIRATORY FAILURE WITH HYPOXIA Status: Acute (2) Pneumonia due to COVID-19 virus Code(s): U07.1 - COVID-19; J12.89 - OTHER VIRAL PNEUMONIA Status: Acute (3) COPD (chronic obstructive pulmonary disease) Status: Chronic Qualifiers: COPD type: chronic bronchitis Chronic bronchitis type: mucopurulent Qualified Code(s): J41.1 - Mucopurulent chronic bronchitis (4) Diabetes mellitus type 2, insulin dependent Code(s): E11.9 - TYPE 2 DIABETES MELLITUS WITHOUT COMPLICATIONS; 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 Acute respiratory failure with hypoxia. Suspect secondary to COVID-19 pneumonia. Continue O2 supplementation as needed. 06/22/2020. He is requiring a little more oxygen according to nursing staff. However his saturation is above 95%. I am going to try to wean him down. Respiratory failure likely related to COVID-19 pneumonia. 06/23/2020. He continues to require O2 at 6 L/min. An attempt to wean him down was unsucc essful yesterday. We will continue to provide his and hopefully wean as tolerated. 06/24/2020. We have weaned him down to 4 L by nasal cannula. Continue to titrate this down. 06/25/2020. He is now on 2.5 L of nasal cannula and saturating above 95%. 2. COVID-19 pneumonia. Continue IV antibiotics, follow-up on all active cultures, bronchodilators and steroids. 06/22/2020. He is tolerating antibiotics. He is getting remdesivir as well. We will continue bronchodilators and steroids. 06/23/2020. This has worsened considerably. He will continue remdesivir. Continue current management plan. #3. COPD. Continue O2 supplementation, bronchodilators and steroids. 06/22/2020. Continue breathing treatment. We will keep on O2. 4. Diabetes type 2. Continue sliding scale coverage.
[2020-06-25] MEDS: HumaLOG 300 UNITS/3 ML VIAL SC PRN (16:38)
[2020-06-25] MEDS: Gabapentin 300 MG CAP PO SCH (21:03)
[2020-06-25] MEDS: Insulin Glargine 30 UNITS in Pre-Filled Syringe 1 EACH SC SCH (21:03)
[2020-06-25] MEDS: Melatonin 3 MG TAB PO PRN (23:56)
[2020-06-26] MEDS: Albuterol 200 PUFF (6.7GM INHALER) INH SCH ×6 (02:21→22:11)
[2020-06-26] MEDS: Mometasone 200 MCG/Formoterol 5 MCG 120 PUFF INHALER INH SCH ×2 (06:21→17:12)
[2020-06-26] MEDS: Enoxaparin Sodium 40 MG/0.4 ML SYRINGE SC SCH ×2 (08:33→20:50)
[2020-06-26] MEDS: Dexamethasone 4 MG TAB PO SCH (08:34)
[2020-06-26] MEDS: glipiZIDE 5 MG TAB PO SCH ×2 (08:34→17:13)
[2020-06-26] MEDS: metFORMIN 500 MG TAB PO SCH ×2 (08:34→17:12)
[2020-06-26] MEDS: Acetaminophen 325 MG TAB PO PRN ×2 (08:35→20:50)
[2020-06-26] MEDS: Finasteride 5 MG TAB PO SCH (08:35)
--- NOTE | 2020-06-26 11:14 | PDOC.HOSPP ---
- Subjective Encounter Date: 06/26/20 Encounter Time: 11:12 Subjective: He is tolerating his O2 being weaned down. Currently he is on 3 L nasal cannula and he is saturating around 92 to 93%. The patient appears to be confused which I suspect to be delirium related to hospitalization. - Objective Vital Signs & Weight: Vital Signs (12 hours) Temp Pulse Resp BP Pulse Ox 06/26/20 08:40 98 F 69 20 108/59 L 92 L 06/26/20 02:30 93 L 06/26/20 00:33 92/62 93 L Weight Weight 209 lb 4.8 oz I&O: 06/25/20 06/26/20 06/27/20 06:59 06:59 06:59 Intake Total 950 1120 Output Total 900 600 Balance 50 520 Result Diagrams: 06/25/20 05:20 06/25/20 05:20 Additional Labs: Accuchecks 06/26/20 06/25/20 06/25/20 06:21 21:07 16:36 POC Glucose 102 H 177 H 344 H 06/25/20 11:16 POC Glucose 176 H Radiology Reviewed by me: Yes EKG Reviewed by me: Yes Hospitalist ROS - Review of Systems ROS unobtainable: due to mental status Respiratory: reports: cough, SOB with excertion, wheezing Neurological: reports: weakness, incoordination, confusion - Medication Medications: Active Medications Generic Name Dose Route Start Last Admin Trade Name Freq PRN Reason Stop Dose Admin Acetaminophen 650 mg 06/18/20 16:48 06/26/20 08:35 Acetaminophen 325 Mg Tab PO 650 mg Q4H PRN Administration Headache/Fever/Mild Pain (1-3) Albuterol Sulfate 2 puff 06/21/20 14:30 06/26/20 06:21 Albuterol 200 Puff (6.7gm Inhaler) INH 2 puff [id number] NI Administration Dexamethasone 6 mg 06/19/20 08:00 06/26/20 08:34 Dexamethasone 4 Mg Tab PO 6 mg QAM-WM NI Administration Enoxaparin Sodium 40 mg 06/18/20 21:00 06/26/20 08:33 Enoxaparin Sodium 40 Mg/0.4 Ml Syringe SC 40 mg 0900,2100 NI Administration Finasteride 5 mg 06/19/20 09:00 06/26/20 08:35 Finasteride 5 Mg Tab PO 5 mg DAILY NI Administration Gabapentin 300 mg 06/18/20 21:00 06/25/20 21:03 Gabapentin 300 Mg Cap PO 300 mg HS NI Administration Glipizide 5 mg 06/19/20 09:00 06/26/20 08:34 Glipizide 5 Mg Tab PO 5 mg DAILY NI Administration Glipizide 2.5 mg 06/19/20 17:00 06/25/20 16:29 Glipizide 5 Mg Tab PO 2.5 mg QPM-WM NI Administration Guaifenesin/Dextromethorphan 15 ml 06/18/20 16:48 06/25/20 01:56 Guaifenesin Dm 100-10/5 Ml Udcup PO 15 ml Q4H PRN Administration Cough Insulin Glargine 30 units/ 0.3 mls @ 0 mls/hr 06/18/20 21:00 06/25/20 21:03 Miscellaneous Medication SC 0.3 mls HS NI Administration Cefepime HCl 1 gm/ Sodium 100 mls @ 200 mls/hr 06/24/20 13:00 06/26/20 00:00 Chloride IVPB 100 mls 0100,1300 NI Administration Insulin Human Lispro 0 units 06/18/20 16:48 06/25/20 16:38 Humalog 300 Units/3 Ml Vial SC 5 unit .MILD SLIDING SCALE PRN Administration Mild Correctional Scale Insulin Human Lispro 0 units 06/18/20 16:48 06/22/20 21:16 Humalog 300 Units/3 Ml Vial SC 5 unit .BEDTIME SLIDING SC PRN Administration Bedtime Correctional Scale Melatonin 6 mg 06/25/20 23:44 06/25/20 23:56 Melatonin 3 Mg Tab PO 6 mg HS PRN Administration Insomnia Metformin HCl 1,000 mg 06/19/20 08:00 06/26/20 08:34 Metformin 500 Mg Tab PO 1,000 mg BID-WM NI Administration Mometasone Furoate/Formoterol Fumar 2 puff 06/19/20 06:30 06/26/20 06:21 Mometasone 200 Mcg/Formoterol 5 Mcg 120 Puff Inhaler INH 2 puff BID-RT NI Administration Pantoprazole Sodium 40 mg 06/23/20 09:00 06/26/20 08:35 Pantoprazole 40 Mg Tab PO 40 mg DAILY NI Administration Sodium Chloride 10 ml 06/19/20 09:00 06/26/20 08:37 Flush - Normal Saline 10 Ml Syringe IVF 10 ml Q12HR NI Administration Sodium Chloride 10 ml 06/19/20 01:30 06/25/20 23:56 Flush - Normal Saline 10 Ml Syringe IVF 10 ml PRN PRN Administration Saline Flush - Exam General Appearance: NAD, awake alert, ill appearing Eye: PERRL, anicteric sclera ENT: normocephalic atraumatic, no oropharyngeal lesions Neck: supple, symmetric, no JVD, no thyromegaly, no lymphadenopathy Heart: RRR, no murmur, no gallops, no rubs, normal peripheral pulses Respiratory: no rales, no ronchi, normal chest expansion, wheezes Gastrointestinal: soft, non-tender, non-distended, normal bowel sounds Neurological: cranial nerve grossly intact, no focal deficits Musculoskeletal: generalized weakness Psychiatric: A&O x 3, flat affect Hosp A/P (1) Acute respiratory failure with hypoxia Code(s): J96.01 - ACUTE RESPIRATORY FAILURE WITH HYPOXIA Status: Acute (2) Pneumonia due to COVID-19 virus Code(s): U07.1 - COVID-19; J12.89 - OTHER VIRAL PNEUMONIA Status: Acute (3) COPD (chronic obstructive pulmonary disease) Status: Chronic Qualifiers: COPD type: chronic bronchitis Chronic bronchitis type: mucopurulent Qualified Code(s): J41.1 - Mucopurulent chronic bronchitis (4) Diabetes mellitus type 2, insulin dependent Code(s): E11.9 - TYPE 2 DIABETES MELLITUS WITHOUT COMPLICATIONS; Z79.4 - 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 Acute respiratory failure with hypoxia. Suspect secondary to COVID-19 pneumonia. Continue O2 supplementation as needed. 06/22/2020. He is requiring a little more oxygen according to nursing staff. However his saturation is above 95%. I am going to try to wean him down. Respiratory failure likely related to COVID-19 pneumonia. 06/23/2020. He continues to require O2 at 6 L/min. An attempt to wean him down was unsuccessful yesterday. We will continue to provide his and hopefully wean as tolerated. 06/24/2020. We have weaned him down to 4 L by nasal cannula. Continue to titrate this down. 06/25/2020. He is now on 2.5 L of nasal cannula and saturating above 95%. 2. COVID-19 pneumonia. Continue IV antibiotics, follow-up on all active cultures, bronchodilators and steroids. 06/22/2020. He is tolerating antibiotics. He is getting remdesivir as well. We will continue bronchodilators and steroids. 06/23/2020. This has worsened considerably. He will continue remdesivir. Continue current management plan. #3. COPD. Continue O2 supplementation, bronchodilators and steroids. 06/22/2020. Continue breathing treatment. We will keep on O2. 4. Diabetes type 2. Continue sliding scale coverage.
[2020-06-26] MEDS: Cefepime 1 GM in Sodium Chloride 0.9% 100 ML IVPB SCH ×2 (12:21)
[2020-06-26] MEDS: Melatonin 3 MG TAB PO PRN (20:50)
[2020-06-26] MEDS: Gabapentin 300 MG CAP PO SCH (20:51)
[2020-06-26] MEDS: Insulin Glargine 30 UNITS in Pre-Filled Syringe 1 EACH SC SCH (20:51)
[2020-06-27] MEDS: Cefepime 1 GM in Sodium Chloride 0.9% 100 ML IVPB SCH ×2 (01:37→13:06)
[2020-06-27] MEDS: Albuterol 200 PUFF (6.7GM INHALER) INH SCH ×6 (01:50→21:17)
[2020-06-27] MEDS: Mometasone 200 MCG/Formoterol 5 MCG 120 PUFF INHALER INH SCH ×2 (06:50→18:23)
[2020-06-27] MEDS: Enoxaparin Sodium 40 MG/0.4 ML SYRINGE SC SCH ×2 (08:39→21:17)
[2020-06-27] MEDS: Finasteride 5 MG TAB PO SCH (08:40)
[2020-06-27] MEDS: metFORMIN 500 MG TAB PO SCH ×2 (08:40→17:46)
[2020-06-27] MEDS: glipiZIDE 5 MG TAB PO SCH ×3 (08:40→17:47)
[2020-06-27] MEDS: Dexamethasone 4 MG TAB PO SCH (08:41)
--- NOTE | 2020-06-27 13:32 | PDOC.HOSPP ---
- Subjective Encounter Date: 06/27/20 Encounter Time: 12:42 Subjective: Patient was seen and evaluated. He seems to be getting more confused. However he is actually on room air and saturating above 95%. I believe his confusion is related to hospital-acquired delirium versus infectious process. - Objective Vital Signs & Weight: Vital Signs (12 hours) Temp Pulse Resp BP BP Pulse Ox 06/27/20 09:00 92 L 06/27/20 07:50 98.3 F 64 20 95/53 L 92 L 06/27/20 03:20 97.8 F 69 20 92/53 L 94 L 06/27/20 01:32 93 L Weight Weight 209 lb 4.8 oz I&O: 06/26/20 06/27/20 06/28/20 06:59 06:59 06:59 Intake Total 1120 1160 Output Total 600 400 Balance 520 760 Result Diagrams: 06/25/20 05:20 06/25/20 05:20 Additional Labs: Accuchecks 06/27/20 06/27/20 06/26/20 12:11 06:24 20:53 POC Glucose 156 H 61 L 147 H 06/26/20 16:37 POC Glucose 140 H Radiology Reviewed by me: Yes EKG Reviewed by me: Yes Hospitalist ROS - Review of Systems Respiratory: reports: shortness of breath Neurological: reports: weakness, confusion - Medication Medications: Active Medications Generic Name Dose Route Start Last Admin Trade Name Freq PRN Reason Stop Dose Admin Acetaminophen 650 mg 06/18/20 16:48 06/26/20 20:50 Acetaminophen 325 Mg Tab PO 650 mg Q4H PRN Administration Headache/Fever/Mild Pain (1-3) Albuterol Sulfate 2 puff 06/21/20 14:30 06/27/20 10:21 Albuterol 200 Puff (6.7gm Inhaler) INH 2 puff [id number] NI Administration Dexamethasone 6 mg 06/19/20 08:00 06/27/20 08:41 Dexamethasone 4 Mg Tab PO 6 mg QAM-WM NI Administration Enoxaparin Sodium 40 mg 06/18/20 21:00 06/27/20 08:39 Enoxaparin Sodium 40 Mg/0.4 Ml Syringe SC 40 mg 0900,2100 NI Administration Finasteride 5 mg 06/19/20 09:00 06/27/20 08:40 Finasteride 5 Mg Tab PO 5 mg DAILY NI Administration Gabapentin 300 mg 06/18/20 21:00 06/26/20 20:51 Gabapentin 300 Mg Cap PO 300 mg HS NI Administration Glipizide 5 mg 06/19/20 09:00 06/27/20 08:40 Glipizide 5 Mg Tab PO 5 mg DAILY NI Administration Glipizide 2.5 mg 06/19/20 17:00 06/26/20 17:13 Glipizide 5 Mg Tab PO 2.5 mg QPM-WM NI Administration Guaifenesin/Dextromethorphan 15 ml 06/18/20 16:48 06/25/20 01:56 Guaifenesin Dm 100-10/5 Ml Udcup PO 15 ml Q4H PRN Administration Cough Insulin Glargine 30 units/ 0.3 mls @ 0 mls/hr 06/18/20 21:00 06/26/20 20:51 Miscellaneous Medication SC 0.3 mls HS NI Administration Cefepime HCl 1 gm/ Sodium 100 mls @ 200 mls/hr 06/24/20 13:00 06/27/20 01:37 Chloride IVPB 100 mls 0100,1300 NI Administration Insulin Human Lispro 0 units 06/18/20 16:48 06/25/20 16:38 Humalog 300 Units/3 Ml Vial SC 5 unit .MILD SLIDING SCALE PRN Administration Mild Correctional Scale Insulin Human Lispro 0 units 06/18/20 16:48 06/22/20 21:16 Humalog 300 Units/3 Ml Vial SC 5 unit .BEDTIME SLIDING SC PRN Administration Bedtime Correctional Scale Melatonin 6 mg 06/25/20 23:44 06/26/20 20:50 Melatonin 3 Mg Tab PO 6 mg HS PRN Administration Insomnia Metformin HCl 1,000 mg 06/19/20 08:00 06/27/20 08:40 Metformin 500 Mg Tab PO 1,000 mg BID-WM NI Administration Mometasone Furoate/Formoterol Fumar 2 puff 06/19/20 06:30 06/27/20 06:50 Mometasone 200 Mcg/Formoterol 5 Mcg 120 Puff Inhaler INH 2 puff BID-RT NI Administration Pantoprazole Sodium 40 mg 06/23/20 09:00 06/27/20 08:40 Pantoprazole 40 Mg Tab PO 40 mg DAILY NI Administration Sodium Chloride 10 ml 06/19/20 09:00 06/27/20 08:42 Flush - Normal Saline 10 Ml Syringe IVF 10 ml Q12HR NI Administration Sodium Chloride 10 ml 06/19/20 01:30 06/25/20 23:56 Flush - Normal Saline 10 Ml Syringe IVF 10 ml PRN PRN Administration Saline Flush - Exam General Appearance: awake alert, ill appearing Eye: PERRL ENT: normocephalic atraumatic, no oropharyngeal lesions Neck: supple, symmetric, no JVD, no thyromegaly Heart: RRR, no murmur, no gallops, no rubs Respiratory: CTAB, no wheezes, no rales, no ronchi, normal chest expansion Gastrointestinal: soft, non-tender, non-distended, normal bowel sounds, no palpable masses Neurological: cranial nerve grossly intact, normal sensation to touch Psychiatric: normal affect, oriented to person Hosp A/P (1) Acute respiratory failure with hypoxia Code(s): J96.01 - ACUTE RESPIRATORY FAILURE WITH HYPOXIA Status: Acute (2) Pneumonia due to COVID-19 virus Code(s): U07.1 - COVID-19; J12.89 - OTHER VIRAL PNEUMONIA Status: Acute (3) COPD (chronic obstructive pulmonary disease) Status: Chronic Qualifiers: COPD type: chronic bronchitis Chronic bronchitis type: mucopurulent Qualified Code(s): J41.1 - Mucopurulent chronic bronchitis (4) Diabetes mellitus type 2, insulin dependent Code(s): E11.9 - TYPE 2 DIABETES MELLITUS WITHOUT COMPLICATIONS; 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 Acute respiratory failure with hypoxia. Suspect secondary to COVID-19 pneumonia. Continue O2 supplementation as needed. 06/22/2020. He is requiring a little more oxygen according to nursing staff. However his saturation is above 95%. I am going to try to wean him down. Respiratory failure likely related to COVID-19 pneumonia. 06/23/2020. He continues to require O2 at 6 L/min. An attempt to wean him down was unsuccessful yesterday. We will continue to provide his and hopefully wean as tolerated. 06/24/2020. We have weaned him down to 4 L by nasal cannula. Continue to titrate this down. 06/25/2020. He is now on 2.5 L of nasal cannula and saturating above 95%. 06/27/2020. He has been weaned off of O2 via nasal cannula. 2. COVID-19 pneumonia. Continue IV antibiotics, follow-up on all active cultures, bronchodilators and steroids. 06/22/2020. He is tolerating antibiotics. He is getting remdesivir as well. We will continue bronchodilators and steroids. 06/23/2020. This has worsened considerably. He will continue remdesivir. Continue current management plan. 06/27/2020. Continue current management plan. #3. COPD. Continue O2 supplementation, bronchodilators and steroids. 06/22/2020. Continue breathing treatment. We will keep on O2. 4. Diabetes type 2. Continue sliding scale coverage. #5. Acute encephalopathy. Likely hospital-acquired delirium.
[2020-06-27] MEDS: Insulin Glargine 30 UNITS in Pre-Filled Syringe 1 EACH SC SCH (21:17)
[2020-06-27] MEDS: Gabapentin 300 MG CAP PO SCH (21:17)
[2020-06-27] MEDS: HumaLOG 300 UNITS/3 ML VIAL SC PRN (21:18)
[2020-06-27] MEDS: Melatonin 3 MG TAB PO PRN (22:15)
[2020-06-28] MEDS: Cefepime 1 GM in Sodium Chloride 0.9% 100 ML IVPB SCH ×2 (01:50→13:36)
[2020-06-28] MEDS: Albuterol 200 PUFF (6.7GM INHALER) INH SCH ×6 (01:51→22:18)
[2020-06-28] MEDS: Mometasone 200 MCG/Formoterol 5 MCG 120 PUFF INHALER INH SCH ×2 (06:37→17:37)
[2020-06-28] MEDS: Dexamethasone 4 MG TAB PO SCH (08:36)
[2020-06-28] MEDS: glipiZIDE 5 MG TAB PO SCH ×2 (08:36→17:16)
[2020-06-28] MEDS: metFORMIN 500 MG TAB PO SCH ×2 (08:37→17:16)
[2020-06-28] MEDS: Finasteride 5 MG TAB PO SCH (08:37)
[2020-06-28] MEDS: Enoxaparin Sodium 40 MG/0.4 ML SYRINGE SC SCH ×2 (08:38→21:13)
--- NOTE | 2020-06-28 13:00 | PDOC.HOSPP ---
- Subjective Encounter Date: 06/28/20 Encounter Time: 12:58 Subjective: Patient was sleepy when I arrived this morning. He was easily arousable however. He is on room air and his saturation is above 95%. We will plan for rehab placement hopefully in the next 24 hours. - Objective Vital Signs & Weight: Vital Signs (12 hours) Temp Pulse Resp BP BP Pulse Ox 06/28/20 11:41 97.9 F 63 18 98/58 L 94 L 06/28/20 08:00 98.7 F 80 18 107/74 92 L 06/28/20 06:37 67 20 95 06/28/20 03:50 97.6 F 67 20 110/64 95 Weight Weight 209 lb 4.8 oz I&O: 06/27/20 06/28/20 06/29/20 06:59 06:59 06:59 Intake Total 1160 1350 Output Total 400 150 Balance 760 1200 Result Diagrams: 06/25/20 05:20 06/25/20 05:20 Additional Labs: Accuchecks 06/28/20 06/28/20 06/27/20 11:39 06:28 20:05 POC Glucose 182 H 65 L 205 H 06/27/20 17:45 POC Glucose 144 H Radiology Reviewed by me: Yes Hospitalist ROS - Review of Systems ROS unobtainable: due to mental status Constitutional: reports: weakness, malaise Respiratory: reports: shortness of breath, SOB with excertion - Medication Medications: Active Medications Generic Name Dose Route Start Last Admin Trade Name Freq PRN Reason Stop Dose Admin Acetaminophen 650 mg 06/18/20 16:48 06/26/20 20:50 Acetaminophen 325 Mg Tab PO 650 mg Q4H PRN Administration Headache/Fever/Mild Pain (1-3) Albuterol Sulfate 2 puff 06/21/20 14:30 06/28/20 09:43 Albuterol 200 Puff (6.7gm Inhaler) INH 2 puff [id number] NI Administration Dexamethasone 6 mg 06/19/20 08:00 06/28/20 08:36 Dexamethasone 4 Mg Tab PO 6 mg QAM-WM NI Administration Enoxaparin Sodium 40 mg 06/18/20 21:00 06/28/20 08:38 Enoxaparin Sodium 40 Mg/0.4 Ml Syringe SC 40 mg 0900,2100 NI Administration Finasteride 5 mg 06/19/20 09:00 06/28/20 08:37 Finasteride 5 Mg Tab PO 5 mg DAILY NI Administration Gabapentin 300 mg 06/18/20 21:00 06/27/20 21:17 Gabapentin 300 Mg Cap PO 300 mg HS NI Administration Glipizide 5 mg 06/19/20 09:00 06/28/20 08:36 Glipizide 5 Mg Tab PO 5 mg DAILY NI Administration Glipizide 2.5 mg 06/19/20 17:00 06/27/20 17:47 Glipizide 5 Mg Tab PO 2.5 mg QPM-WM NI Administration Guaifenesin/Dextromethorphan 15 ml 06/18/20 16:48 06/25/20 01:56 Guaifenesin Dm 100-10/5 Ml Udcup PO 15 ml Q4H PRN Administration Cough Insulin Glargine 30 units/ 0.3 mls @ 0 mls/hr 06/18/20 21:00 06/27/20 21:17 Miscellaneous Medication SC 0.3 mls HS NI Administration Cefepime HCl 1 gm/ Sodium 100 mls @ 200 mls/hr 06/24/20 13:00 06/28/20 01:50 Chloride IVPB 100 mls 0100,1300 NI Administration Insulin Human Lispro 0 units 06/18/20 16:48 06/25/20 16:38 Humalog 300 Units/3 Ml Vial SC 5 unit .MILD SLIDING SCALE PRN Administration Mild Correctional Scale Insulin Human Lispro 0 units 06/18/20 16:48 06/27/20 21:18 Humalog 300 Units/3 Ml Vial SC 2 unit .BEDTIME SLIDING SC PRN Administration Bedtime Correctional Scale Melatonin 6 mg 06/25/20 23:44 06/27/20 22:15 Melatonin 3 Mg Tab PO 6 mg HS PRN Administration Insomnia Metformin HCl 1,000 mg 06/19/20 08:00 06/28/20 08:37 Metformin 500 Mg Tab PO 1,000 mg BID-WM NI Administration Mometasone Furoate/Formoterol Fumar 2 puff 06/19/20 06:30 06/28/20 06:37 Mometasone 200 Mcg/Formoterol 5 Mcg 120 Puff Inhaler INH 2 puff BID-RT NI Administration Pantoprazole Sodium 40 mg 06/23/20 09:00 06/28/20 08:37 Pantoprazole 40 Mg Tab PO 40 mg DAILY NI Administration Sodium Chloride 10 ml 06/19/20 09:00 06/28/20 08:38 Flush - Normal Saline 10 Ml Syringe IVF 10 ml Q12HR NI Administration Sodium Chloride 10 ml 06/19/20 01:30 06/25/20 23:56 Flush - Normal Saline 10 Ml Syringe IVF 10 ml PRN PRN Administration Saline Flush - Exam General Appearance: awake alert, ill appearing Eye: PERRL, anicteric sclera ENT: normocephalic atraumatic, no oropharyngeal lesions, moist mucosa Neck: supple, symmetric, no JVD, no thyromegaly, no lymphadenopathy Heart: RRR, no murmur, no gallops, no rubs, normal peripheral pulses Respiratory: CTAB, no wheezes, no rales, no ronchi, normal chest expansion Gastrointestinal: soft, non-tender, non-distended, normal bowel sounds, no palpable masses Neurological: cranial nerve grossly intact, normal sensation to touch Musculoskeletal: generalized weakness Psychiatric: normal affect, normal behavior Hosp A/P (1) Acute respiratory failure with hypoxia Code(s): J96.01 - ACUTE RESPIRATORY FAILURE WITH HYPOXIA Status: Acute (2) Pneumonia due to COVID-19 virus Code(s): U07.1 - COVID-19; J12.89 - OTHER VIRAL PNEUMONIA Status: Acute (3) COPD (chronic obstructive pulmonary disease) Status: Chronic Qualifiers: COPD type: chronic bronchitis Chronic bronchitis type: mucopurulent Qualified Code(s): J41.1 - Mucopurulent chronic bronchitis (4) Diabetes mellitus type 2, insulin dependent Code(s): E11.9 - TYPE 2 DIABETES MELLITUS WITHOUT COMPLICATIONS; Z79.4 - LONG TE RM (CURRENT) USE OF INSULIN Status: Chronic (5) Generalized weakness Code(s): R53.1 - WEAKNESS Status: Acute - Plan old records reviewed/req, continue antibiotics, PT/OT, respiratory therapy, incentive spirometry, out of bed/ambulate, DVT proph w/lovenox #1. Acute respiratory failure with hypoxia. Suspect secondary to COVID-19 pneumonia. Continue O2 supplementation as needed. 06/22/2020. He is requiring a little more oxygen according to nursing staff. However his sa turation is above 95%. I am going to try to wean him down. Respiratory failure likely related to COVID-19 pneumonia. 06/23/2020. He continues to require O2 at 6 L/min. An attempt to wean him down was unsuccessful yesterday. We will continue to provide his and hopefully wean as tolerated. 06/24/2020. We have weaned him down to 4 L by nasal cannula. Continue to titrate this down. 06/25/2020. He is now on 2.5 L of nasal cannula and saturating above 95%. 06/27/2020. He has been weaned off of O2 via nasal cannula. 06/28/2020. He remains off of O2 via nasal cannula. 2. COVID-19 pneumonia. Continue IV antibiotics, follow-up on all active cultures, bronchodilators and steroids. 06/22/2020. He is tolerating antibiotics. He is getting remdesivir as well. We will continue bronchodilators and steroids. 06/23/2020. This has worsened considerably. He will continue remdesivir. Continue current management plan. 06/27/2020. Continue current management plan. #3. COPD. Continue O2 supplementation, bronchodilators and steroids. 06/22/2020. Continue breathing treatment. We will keep on O2. 4. Diabetes type 2. Continue sliding scale coverage. #5. Acute encephalopathy. Likely hospital-acquired delirium. 6. Physical debility. Continue PT, OT. We will plan for rehab hopefully sometime next week.
[2020-06-28] MEDS: HumaLOG 300 UNITS/3 ML VIAL SC PRN (17:38)
[2020-06-28] MEDS: Melatonin 3 MG TAB PO PRN (21:13)
[2020-06-28] MEDS: Acetaminophen 325 MG TAB PO PRN (21:13)
[2020-06-28] MEDS: Gabapentin 300 MG CAP PO SCH (21:13)
[2020-06-28] MEDS: Insulin Glargine 30 UNITS in Pre-Filled Syringe 1 EACH SC SCH (21:14)
[2020-06-29] MEDS: Cefepime 1 GM in Sodium Chloride 0.9% 100 ML IVPB SCH ×2 (01:02→13:33)
[2020-06-29] MEDS: Albuterol 200 PUFF (6.7GM INHALER) INH SCH ×5 (02:48→17:04)
[2020-06-29] MEDS: Mometasone 200 MCG/Formoterol 5 MCG 120 PUFF INHALER INH SCH ×2 (05:38→17:04)
[2020-06-29] MEDS: Enoxaparin Sodium 40 MG/0.4 ML SYRINGE SC SCH ×2 (09:39→21:17)
[2020-06-29] MEDS: Dexamethasone 4 MG TAB PO SCH (09:39)
[2020-06-29] MEDS: Finasteride 5 MG TAB PO SCH (09:40)
[2020-06-29] MEDS: glipiZIDE 5 MG TAB PO SCH ×2 (09:40→17:03)
[2020-06-29] MEDS: metFORMIN 500 MG TAB PO SCH ×2 (09:40→17:03)
--- NOTE | 2020-06-29 11:14 | PDOC.HOSPP ---
- Subjective Encounter Date: 06/29/20 Encounter Time: 11:13 Subjective: Ms. Quintanilla was seen morning at the bedside. He has been weaned off of oxygen. He remains confused for the most part. I did speak with family and they were interested in the patient going to rehab. However I am doubtful that he will cooperate with rehab. I will discuss possibility of home health with PT. - Objective Vital Signs & Weight: Vital Signs (12 hours) Temp Pulse Resp BP Pulse Ox 06/29/20 08:00 97.5 F L 71 18 97/56 L 96 06/29/20 02:40 97.7 F 79 16 106/57 L 98 06/29/20 01:27 97 Weight Weight 200 lb 8 oz I&O: 06/28/20 06/29/20 06/30/20 06:59 06:59 06:59 Intake Total 1350 400 Output Total 150 150 175 Balance 1200 250 -175 Result Diagrams: 06/25/20 05:20 06/25/20 05:20 Additional Labs: Accuchecks 06/29/20 06/29/20 06/28/20 10:07 06:14 21:18 POC Glucose 140 H 97 191 H 06/28/20 06/28/20 16:56 11:39 POC Glucose 247 H 182 H Radiology Reviewed by me: Yes EKG Reviewed by me: Yes Hospitalist ROS - Review of Systems ROS unobtainable: due to mental status Constitutional: reports: weakness, malaise Respiratory: reports: shortness of breath, SOB with excertion - Medication Medications: Active Medications Generic Name Dose Route Start Last Admin Trade Name Dian PRN Reason Stop Dose Admin Acetaminophen 650 mg 06/18/20 16:48 06/28/20 21:13 Acetaminophen 325 Mg Tab PO 650 mg Q4H PRN Administration Headache/Fever/Mild Pain (1-3) Albuterol Sulfate 2 puff 06/21/20 14:30 06/29/20 09:41 Albuterol 200 Puff (6.7gm Inhaler) INH 2 puff [id number] NI Administration Dexamethasone 6 mg 06/19/20 08:00 06/29/20 09:39 Dexamethasone 4 Mg Tab PO 6 mg QAM-WM NI Administration Enoxaparin Sodium 40 mg 06/18/20 21:00 06/29/20 09:39 Enoxaparin Sodium 40 Mg/0.4 Ml Syringe SC 40 mg 0900,2100 NI Administration Finasteride 5 mg 06/19/20 09:00 06/29/20 09:40 Finasteride 5 Mg Tab PO 5 mg DAILY NI Administration Gabapentin 300 mg 06/18/20 21:00 06/28/20 21:13 Gabapentin 300 Mg Cap PO 300 mg HS NI Administration Glipizide 5 mg 06/19/20 09:00 06/29/20 09:40 Glipizide 5 Mg Tab PO 5 mg DAILY NI Administration Glipizide 2.5 mg 06/19/20 17:00 06/28/20 17:16 Glipizide 5 Mg Tab PO 2.5 mg QPM-WM NI Administration Guaifenesin/Dextromethorphan 15 ml 06/18/20 16:48 06/25/20 01:56 Guaifenesin Dm 100-10/5 Ml Udcup PO 15 ml Q4H PRN Administration Cough Insulin Glargine 30 units/ 0.3 mls @ 0 mls/hr 06/18/20 21:00 06/28/20 21:14 Miscellaneous Medication SC 0.3 mls HS NI Administration Cefepime HCl 1 gm/ Sodium 100 mls @ 200 mls/hr 06/24/20 13:00 06/29/20 01:02 Chloride IVPB 100 mls 0100,1300 NI Administration Insulin Human Lispro 0 units 06/18/20 16:48 06/28/20 17:38 Humalog 300 Units/3 Ml Vial SC 3 unit .MILD SLIDING SCALE PRN Administration Mild Correctional Scale Insulin Human Lispro 0 units 06/18/20 16:48 06/27/20 21:18 Humalog 300 Units/3 Ml Vial SC 2 unit .BEDTIME SLIDING SC PRN Administration Bedtime Correctional Scale Melatonin 6 mg 06/25/20 23:44 06/28/20 21:13 Melatonin 3 Mg Tab PO 6 mg HS PRN Administration Insomnia Metformin HCl 1,000 mg 06/19/20 08:00 06/29/20 09:40 Metformin 500 Mg Tab PO 1,000 mg BID-WM NI Administration Mometasone Furoate/Formoterol Fumar 2 puff 06/19/20 06:30 06/29/20 05:38 Mometasone 200 Mcg/Formoterol 5 Mcg 120 Puff Inhaler INH 2 puff BID-RT NI Administration Pantoprazole Sodium 40 mg 06/23/20 09:00 06/29/20 09:40 Pantoprazole 40 Mg Tab PO 40 mg DAILY NI Administration Sodium Chloride 10 ml 06/19/20 09:00 06/29/20 09:40 Flush - Normal Saline 10 Ml Syringe IVF 10 ml Q12HR NI Administration Sodium Chloride 10 ml 06/19/20 01:30 06/25/20 23:56 Flush - Normal Saline 10 Ml Syringe IVF 10 ml PRN PRN Administration Saline Flush - Exam General Appearance: NAD, awake alert, ill appearing Eye: PERRL ENT: normocephalic atraumatic, no oropharyngeal lesions Neck: supple, symmetric, no JVD, no thyromegaly Heart: RRR, no murmur, no gallops, no rubs, normal peripheral pulses Respiratory: CTAB, no wheezes, no rales, no ronchi, normal chest expansion Gastrointestinal: soft, non-tender, non-distended Neurological: cranial nerve grossly intact, normal sensation to touch Psychiatric: normal affect, normal behavior, not oriented Hosp A/P (1) Acute respiratory failure with hypoxia Code(s): J96.01 - ACUTE RESPIRATORY FAILURE WITH HYPOXIA Status: Acute Plan: He has completely weaned off of oxygen. (2) Pneumonia due to COVID-19 virus Code(s): U07.1 - COVID-19; J12.89 - OTHER VIRAL PNEUMONIA Status: Acute (3) COPD (chronic obstructive pulmonary disease) Status: Chronic Qualifiers: COPD type: chronic bronchitis Chronic bronchitis type: mucopurulent Qualified Code(s): J41.1 - Mucopurulent chronic bronchitis (4) Diabetes mellitus type 2, insulin dependent Code(s): E11.9 - TYPE 2 DIABETES MELLITUS WITHOUT COMPLICATIONS; Z79.4 - FPC (CURRENT) USE OF INSULIN Status: Chronic (5) Generalized weakness Code(s): R53.1 - WEAKNESS Status: Acute - Plan old records reviewed/req, plan discussed w/ family, PT/OT, out of bed/ambulate #1. Acute respiratory failure with hypoxia. Suspect secondary to COVID-19 pneumonia. Continue O2 supplementation as needed. 06/22/2020. He is requiring a little more oxygen according to nursing staff. However his s aturation is above 95%. I am going to try to wean him down. Respiratory failure likely related to COVID-19 pneumonia. 06/23/2020. He continues to require O2 at 6 L/min. An attempt to wean him down was unsuccessful yesterday. We will continue to provide his and hopefully wean as tolerated. 06/24/2020. We have weaned him down to 4 L by nasal cannula. Continue to titrate this down. 06/25/2020. He is now on 2.5 L of nasal cannula and saturating above 95%. 06/27/2020. He has been weaned off of O2 via nasal cannula. 06/28/2020. He remains off of O2 via nasal cannula. 2. COVID-19 pneumonia. Continue IV antibiotics, follow-up on all active cultures, bronchodilators and steroids. 06/22/2020. He is tolerating antibiotics. He is getting remdesivir as well. We will continue bronchodilators and steroids. 06/23/2020. This has worsened considerably. He will continue remdesivir. Continue current management plan. 06/27/2020. Continue current management plan. #3. COPD. Continue O2 supplementation, bronchodilators and steroids. 06/22/2020. Continue breathing treatment. We will keep on O2. 4. Diabetes type 2. Continue sliding scale coverage. #5. Acute encephalopathy. Likely hospital-acquired delirium. 6. Physical debility. Continue PT, OT. We will plan for rehab hopefully sometime next week.
[2020-06-29 11:27] VITALS: BMI 27.1
[2020-06-29] MEDS: Insulin Glargine 30 UNITS in Pre-Filled Syringe 1 EACH SC SCH (21:15)
[2020-06-29] MEDS: HumaLOG 300 UNITS/3 ML VIAL SC PRN (21:16)
[2020-06-29] MEDS: Gabapentin 300 MG CAP PO SCH (21:16)
[2020-06-29] MEDS: Melatonin 3 MG TAB PO PRN (21:17)
[2020-06-30] MEDS: Cefepime 1 GM in Sodium Chloride 0.9% 100 ML IVPB SCH ×2 (01:44→12:43)
[2020-06-30] MEDS: Albuterol 200 PUFF (6.7GM INHALER) INH SCH ×5 (06:15→18:51)
[2020-06-30] MEDS: Mometasone 200 MCG/Formoterol 5 MCG 120 PUFF INHALER INH SCH ×2 (06:16→17:33)
[2020-06-30] MEDS: glipiZIDE 5 MG TAB PO SCH ×2 (09:06→17:32)
[2020-06-30] MEDS: metFORMIN 500 MG TAB PO SCH ×2 (09:06→17:32)
[2020-06-30] MEDS: Finasteride 5 MG TAB PO SCH (09:06)
[2020-06-30] MEDS: Dexamethasone 4 MG TAB PO SCH (09:06)
[2020-06-30] MEDS: Enoxaparin Sodium 40 MG/0.4 ML SYRINGE SC SCH ×2 (09:07→20:40)
--- NOTE | 2020-06-30 10:47 | PDOC.HOSPP ---
- Subjective Encounter Date: 06/30/20 Encounter Time: 10:46 Subjective: Mr. Quintanilla seems to be doing very well today. He was sitting up at the bedside eating his breakfast. He remains on room air for the most part. He has been evaluated for rehab placement. He can transfer once he is accepted. - Objective Vital Signs & Weight: Vital Signs (12 hours) Temp Pulse Resp BP Pulse Ox 06/30/20 08:00 97.2 F L 74 18 98/50 L 94 L 06/30/20 03:51 97.5 F L 60 16 112/73 97 06/30/20 00:00 98.1 F 70 16 120/67 96 Weight Admit Weight 210 lb 6.4 oz Weight 200 lb 8 oz I&O: 06/29/20 06/30/20 07/01/20 06:59 06:59 06:59 Intake Total 400 830 Output Total 150 475 Balance 250 355 Result Diagrams: 06/25/20 05:20 06/25/20 05:20 Additional Labs: Accuchecks 06/30/20 06/29/20 06/29/20 05:34 20:12 16:49 POC Glucose 100 264 H 199 H Radiology Reviewed by me: Yes EKG Reviewed by me: Yes Hospitalist ROS - Review of Systems Constitutional: reports: weakness, malaise Respiratory: reports: cough, dry - Medication Medications: Active Medications Generic Name Dose Route Start Last Admin Trade Name Freq PRN Reason Stop Dose Admin Acetaminophen 650 mg 06/18/20 16:48 06/28/20 21:13 Acetaminophen 325 Mg Tab PO 650 mg Q4H PRN Administration Headache/Fever/Mild Pain (1-3) Albuterol Sulfate 2 puff 06/21/20 14:30 06/30/20 06:15 Albuterol 200 Puff (6.7gm Inhaler) INH 2 puff [id number] NI Administration Dexamethasone 6 mg 06/19/20 08:00 06/30/20 09:06 Dexamethasone 4 Mg Tab PO 6 mg QAM-WM NI Administration Enoxaparin Sodium 40 mg 06/18/20 21:00 06/30/20 09:07 Enoxaparin Sodium 40 Mg/0.4 Ml Syringe SC 40 mg 0900,2100 NI Administration Finasteride 5 mg 06/19/20 09:00 06/30/20 09:06 Finasteride 5 Mg Tab PO 5 mg DAILY NI Administration Gabapentin 300 mg 06/18/20 21:00 06/29/20 21:16 Gabapentin 300 Mg Cap PO 300 mg HS NI Administration Glipizide 5 mg 06/19/20 09:00 06/30/20 09:06 Glipizide 5 Mg Tab PO 5 mg DAILY NI Administration Glipizide 2.5 mg 06/19/20 17:00 06/29/20 17:03 Glipizide 5 Mg Tab PO 2.5 mg QPM-WM NI Administration Guaifenesin/Dextromethorphan 15 ml 06/18/20 16:48 06/25/20 01:56 Guaifenesin Dm 100-10/5 Ml Udcup PO 15 ml Q4H PRN Administration Cough Insulin Glargine 30 units/ 0.3 mls @ 0 mls/hr 06/18/20 21:00 06/29/20 21:15 Miscellaneous Medication SC 0.3 mls HS IN Administration Cefepime HCl 1 gm/ Sodium 100 mls @ 200 mls/hr 06/24/20 13:00 06/30/20 01:44 Chloride IVPB 100 mls 0100,1300 NI Administration Insulin Human Lispro 0 units 06/18/20 16:48 06/28/20 17:38 Humalog 300 Units/3 Ml Vial SC 3 unit .MILD SLIDING SCALE PRN Administration Mild Correctional Scale Insulin Human Lispro 0 units 06/18/20 16:48 06/29/20 21:16 Humalog 300 Units/3 Ml Vial SC 3 unit .BEDTIME SLIDING SC PRN Administration Bedtime Correctional Scale Melatonin 6 mg 06/25/20 23:44 06/29/20 21:17 Melatonin 3 Mg Tab PO 6 mg HS PRN Administration Insomnia Metformin HCl 1,000 mg 06/19/20 08:00 06/30/20 09:06 Metformin 500 Mg Tab PO 1,000 mg BID-WM NI Administration Mometasone Furoate/Formoterol Fumar 2 puff 06/19/20 06:30 06/30/20 06:16 Mometasone 200 Mcg/Formoterol 5 Mcg 120 Puff Inhaler INH 2 puff BID-RT NI Administration Pantoprazole Sodium 40 mg 06/23/20 09:00 06/30/20 09:06 Pantoprazole 40 Mg Tab PO 40 mg DAILY NI Administration Sodium Chloride 10 ml 06/19/20 09:00 06/30/20 09:07 Flush - Normal Saline 10 Ml Syringe IVF 10 ml Q12HR NI Administration Sodium Chloride 10 ml 06/19/20 01:30 06/25/20 23:56 Flush - Normal Saline 10 Ml Syringe IVF 10 ml PRN PRN Administration Saline Flush - Exam General Appearance: NAD, awake alert Eye: PERRL, anicteric sclera ENT: normocephalic atraumatic, no oropharyngeal lesions, moist mucosa Neck: supple, symmetric, no JVD, no thyromegaly, no lymphadenopathy Heart: RRR, no murmur, no gallops, no rubs, normal peripheral pulses Respiratory: CTAB, no wheezes, no rales, no ronchi, normal chest expansion Gastrointestinal: soft, non-tender, non-distended, normal bowel sounds, no palpable masses Neurological: cranial nerve grossly intact, normal sensation to touch Musculoskeletal: normal tone, normal strength Psychiatric: normal affect, normal behavior, A&O x 3 Hosp A/P (1) Acute respiratory failure with hypoxia Code(s): J96.01 - ACUTE RESPIRATORY FAILURE WITH HYPOXIA Status: Acute (2) Pneumonia due to COVID-19 virus Code(s): U07.1 - COVID-19; J12.89 - OTHER VIRAL PNEUMONIA Status: Acute (3) COPD (chronic obstructive pulmonary disease) Status: Chronic Qualifiers: COPD type: chronic bronchitis Chronic bronchitis type: mucopurulent Qualified Code(s): J41.1 - Mucopurulent chronic bronchitis (4) Diabetes mellitus type 2, insulin dependent Code(s): E11.9 - TYPE 2 DIABETES MELLITUS WITHOUT COMPLICATIONS; Z79.4 - DETENTION (CURRENT) USE OF INSULIN Status: Chronic (5) Generalized weakness Code(s): R53.1 - WEAKNESS Status: Acute - Plan old records reviewed/req, plan discussed w/ family, PT/OT #1. Acute respiratory failure with hypoxia. Suspect secondary to COVID-19 pneumonia. Continue O2 supplementation as needed. 06/22/2020. He is requiring a little more oxygen according to nursing staff. However his saturation is above 95%. I am going to try to wean him down. Respiratory failure likely related to COVID-19 pneumonia. 06/23/2020. He continues to require O2 at 6 L/min. An attempt to wean him down was unsuccessful yesterday. We will continue to provide his and hopefully wean as tolerated. 06/24/2020. We have weaned him down to 4 L by nasal cannula. Continue to titrate this down. 06/25/2020. He is now on 2.5 L of nasal cannula and saturating above 95%. 06/27/2020. He has been weaned off of O2 via nasal cannula. 06/28/2020. He remains off of O2 via nasal cannula. 2. COVID-19 pneumonia. Continue IV antibiotics, follow-up on all active cultures, bronchodilators and steroids. 06/22/2020. He is tolerating antibiotics. He is getting remdesivir as well. We will continue bronchodilators and steroids. 06/23/2020. This has worsened considerably. He will continue remdesivir. Continue current management plan. 06/27/2020. Continue current management plan. #3. COPD. Continue O2 supplementation, bronchodilators and steroids. 06/22/2020. Continue breathing treatment. We will keep on O2. 4. Diabetes type 2. Continue sliding scale coverage. #5. Acute encephalopathy. Likely hospital-acquired delirium. 6. Physical debility. Continue PT, OT. We will plan for rehab hopefully sometime next week. 06/30/2020. He can proceed to rehab once he is approved.
[2020-06-30] MEDS: Melatonin 3 MG TAB PO PRN (20:41)
[2020-06-30] MEDS: Insulin Glargine 30 UNITS in Pre-Filled Syringe 1 EACH SC SCH (20:41)
[2020-06-30] MEDS: Gabapentin 300 MG CAP PO SCH (20:41)
[2020-07-01] MEDS: Cefepime 1 GM in Sodium Chloride 0.9% 100 ML IVPB SCH (00:41)
[2020-07-01] MEDS: Albuterol 200 PUFF (6.7GM INHALER) INH SCH ×6 (00:42→18:32)
[2020-07-01] MEDS: Mometasone 200 MCG/Formoterol 5 MCG 120 PUFF INHALER INH SCH ×2 (06:47→18:32)
[2020-07-01] MEDS: Enoxaparin Sodium 40 MG/0.4 ML SYRINGE SC SCH ×2 (09:54→21:14)
[2020-07-01] MEDS: glipiZIDE 5 MG TAB PO SCH ×2 (09:55→18:33)
[2020-07-01] MEDS: Finasteride 5 MG TAB PO SCH (09:55)
[2020-07-01] MEDS: metFORMIN 500 MG TAB PO SCH ×2 (09:55→18:34)
[2020-07-01] MEDS: Dexamethasone 4 MG TAB PO SCH (09:55)
--- NOTE | 2020-07-01 12:05 | PDOC.HOSPP ---
- Subjective Encounter Date: 07/01/20 Encounter Time: 12:03 Subjective: Mr. Quintanilla remains clinically stable. He does get confused periodically. He is pending transfer to rehab. Medically he is stable to go whenever he is approved. He is saturating above 95% on 2 L of nasal cannula. - Objective Vital Signs & Weight: Vital Signs (12 hours) Temp Pulse Resp BP Pulse Ox 07/01/20 10:07 97.5 F L 63 16 106/64 92 L 07/01/20 03:42 97.6 F 73 22 H 92/71 91 L 07/01/20 03:08 92 L Weight Admit Weight 210 lb 6.4 oz Weight 200 lb 8 oz I&O: 06/30/20 07/01/20 07/02/20 06:59 06:59 06:59 Intake Total 830 700 240 Output Total 475 550 Balance 355 150 240 Result Diagrams: 06/25/20 05:20 06/25/20 05:20 Additional Labs: Accuchecks 07/01/20 07/01/20 06/30/20 10:50 05:14 20:32 POC Glucose 155 H 156 H 172 H 06/30/20 18:25 POC Glucose 152 H Radiology Reviewed by me: Yes EKG Reviewed by me: Yes Hospitalist ROS - Review of Systems Constitutional: reports: weakness, malaise Respiratory: reports: cough, SOB with excertion - Medication Medications: Active Medications Generic Name Dose Route Start Last Admin Trade Name Freq PRN Reason Stop Dose Admin Acetaminophen 650 mg 06/18/20 16:48 06/28/20 21:13 Acetaminophen 325 Mg Tab PO 650 mg Q4H PRN Administration Headache/Fever/Mild Pain (1-3) Albuterol Sulfate 2 puff 06/21/20 14:30 07/01/20 09:58 Albuterol 200 Puff (6.7gm Inhaler) INH 2 puff [id number] NI Administration Dexamethasone 6 mg 06/19/20 08:00 07/01/20 09:55 Dexamethasone 4 Mg Tab PO 6 mg QAM-WM NI Administration Enoxaparin Sodium 40 mg 06/18/20 21:00 07/01/20 09:54 Enoxaparin Sodium 40 Mg/0.4 Ml Syringe SC 40 mg 0900,2100 NI Administration Finasteride 5 mg 06/19/20 09:00 07/01/20 09:55 Finasteride 5 Mg Tab PO 5 mg DAILY NI Administration Gabapentin 300 mg 06/18/20 21:00 06/30/20 20:41 Gabapentin 300 Mg Cap PO 300 mg HS NI Administration Glipizide 5 mg 06/19/20 09:00 07/01/20 09:55 Glipizide 5 Mg Tab PO 5 mg DAILY NI Administration Glipizide 2.5 mg 06/19/20 17:00 06/30/20 17:32 Glipizide 5 Mg Tab PO 2.5 mg QPM-WM NI Administration Guaifenesin/Dextromethorphan 15 ml 06/18/20 16:48 06/25/20 01:56 Guaifenesin Dm 100-10/5 Ml Udcup PO 15 ml Q4H PRN Administration Cough Insulin Glargine 30 units/ 0.3 mls @ 0 mls/hr 06/18/20 21:00 06/30/20 20:41 Miscellaneous Medication SC 0.3 mls HS NI Administration Insulin Human Lispro 0 units 06/18/20 16:48 06/28/20 17:38 Humalog 300 Units/3 Ml Vial SC 3 unit .MILD SLIDING SCALE PRN Administration Mild Correctional Scale Insulin Human Lispro 0 units 06/18/20 16:48 06/29/20 21:16 Humalog 300 Units/3 Ml Vial SC 3 unit .BEDTIME SLIDING SC PRN Administration Bedtime Correctional Scale Melatonin 6 mg 06/25/20 23:44 06/30/20 20:41 Melatonin 3 Mg Tab PO 6 mg HS PRN Administration Insomnia Metformin HCl 1,000 mg 06/19/20 08:00 07/01/20 09:55 Metformin 500 Mg Tab PO 1,000 mg BID-WM NI Administration Mometasone Furoate/Formoterol Fumar 2 puff 06/19/20 06:30 07/01/20 06:47 Mometasone 200 Mcg/Formoterol 5 Mcg 120 Puff Inhaler INH 2 puff BID-RT NI Administration Pantoprazole Sodium 40 mg 06/23/20 09:00 07/01/20 09:54 Pantoprazole 40 Mg Tab PO 40 mg DAILY NI Administration Sodium Chloride 10 ml 06/19/20 09:00 07/01/20 09:57 Flush - Normal Saline 10 Ml Syringe IVF 10 ml Q12HR NI Administration Sodium Chloride 10 ml 06/19/20 01:30 06/25/20 23:56 Flush - Normal Saline 10 Ml Syringe IVF 10 ml PRN PRN Administration Saline Flush - Exam General Appearance: NAD, awake alert Eye: PERRL, anicteric sclera ENT: normocephalic atraumatic, no oropharyngeal lesions, moist mucosa Neck: supple, symmetric, no JVD, no thyromegaly, no lymphadenopathy Heart: RRR, no murmur, no gallops, no rubs, normal peripheral pulses Respiratory: CTAB, no wheezes, no rales, no ronchi, normal chest expansion Gastrointestinal: soft, non-tender, non-distended, normal bowel sounds Extremities: no cyanosis, no clubbing Neurological: cranial nerve grossly intact Psychiatric: normal affect, normal behavior, A&O x 3 Hosp A/P (1) Acute respiratory failure with hypoxia Code(s): J96.01 - ACUTE RESPIRATORY FAILURE WITH HYPOXIA Status: Acute Plan: Acute respiratory failure has resolved. He is on O2 mostly for comfort. (2) Pneumonia due to COVID-19 virus Code(s): U07.1 - COVID-19; J12.89 - OTHER VIRAL PNEUMONIA Status: Acute Plan: All indication he seems to be improved. I will discontinue his antibiotics. 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 Acute respiratory failure with hypoxia. Suspect secondary to COVID-19 pneumonia. Continue O2 supplementation as needed. 06/22/2020. He is requiring a little more oxygen according to nursing staff. However his saturation is above 95%. I am going to try to wean him down. Respiratory failure likely related to COVID-19 pneumonia. 06/23/2020. He continues to require O2 at 6 L/min. An attempt to wean him down was unsuccessful yesterday. We will continue to provide his and hopefully wean as tolerated. 06/24/2020. We have weaned him down to 4 L by nasal cannula. Continue to titrate this down. 06/25/2020. He is now on 2.5 L of nasal cannula and saturating above 95%. 06/27/2020. He has been weaned off of O2 via nasal cannula. 06/28/2020. He remains off of O2 via nasal cannula. 2. COVID-19 pneumonia. Continue IV antibiotics, follow-up on all active cultures, bronchodilators and steroids. 06/22/2020. He is tolerating antibiotics. He is getting remdesivir as well. We will continue bronchodilators and steroids. 06/23/2020. This has worsened considerably. He will continue remdesivir. Continue current management plan. 06/27/2020. Continue current management plan. #3. COPD. Continue O2 supplementation, bronchodilators and steroids. 06/22/2020. Continue breathing treatment. We will keep on O2. 4. Diabetes type 2. Continue sliding scale coverage. #5. Acute encephalopathy. Likely hospital-acquired delirium. 6. Physical debility. Continue PT, OT. We will plan for rehab hopefully sometime next week. 06/30/2020. He can proceed to rehab once he is approved.
[2020-07-01] MEDS: HumaLOG 300 UNITS/3 ML VIAL SC PRN ×2 (13:48→18:32)
[2020-07-01] MEDS: Insulin Glargine 30 UNITS in Pre-Filled Syringe 1 EACH SC SCH (21:14)
[2020-07-01] MEDS: Gabapentin 300 MG CAP PO SCH (21:14)
[2020-07-01] MEDS: Melatonin 3 MG TAB PO PRN (21:14)
[2020-07-02] MEDS: Albuterol 200 PUFF (6.7GM INHALER) INH SCH ×7 (02:52→20:39)
[2020-07-02] MEDS: Mometasone 200 MCG/Formoterol 5 MCG 120 PUFF INHALER INH SCH ×2 (08:41→18:33)
[2020-07-02] MEDS: Enoxaparin Sodium 40 MG/0.4 ML SYRINGE SC SCH ×2 (08:42→20:36)
[2020-07-02] MEDS: glipiZIDE 5 MG TAB PO SCH ×2 (08:42→18:34)
[2020-07-02] MEDS: Finasteride 5 MG TAB PO SCH (08:42)
[2020-07-02] MEDS: metFORMIN 500 MG TAB PO SCH ×2 (08:42→18:34)
--- NOTE | 2020-07-02 14:15 | PDOC.HOSPP ---
- Subjective Encounter Date: 07/02/20 Encounter Time: 14:14 Subjective: Mr. Quintanilla was seen and evaluated today. This 85-year-old patient was admitted for Covid pneumonia and he seems to be doing much better. He is now intermittently only on oxygen. By all indications he is doing reasonably better from the Covid standpoint. Family wants him to go to rehab and this is being arranged by the case management. He can potentially transfer whenever he is approved. I called and spoke to the patient's [id number] Ms. Griffiths and updated her about the plan of care. All questions were answered. - Objective Vital Signs & Weight: Vital Signs (12 hours) Temp Pulse Resp BP Pulse Ox 07/02/20 11:44 97.7 F 64 18 96/56 L 92 L 07/02/20 08:40 96.8 F L 61 16 102/63 93 L 07/02/20 08:21 97 07/02/20 04:00 97.7 F 62 17 138/67 97 Weight Admit Weight 210 lb 6.4 oz Weight 200 lb 8 oz I&O: 07/01/20 07/02/20 07/03/20 06:59 06:59 06:59 Intake Total 700 713 600 Output Total 550 424 Balance 150 289 600 Result Diagrams: 06/25/20 05:20 06/25/20 05:20 Additional Labs: Accuchecks 07/02/20 07/02/20 07/01/20 11:33 04:40 21:08 POC Glucose 148 H 108 H 221 H 07/01/20 16:26 POC Glucose 183 H Radiology Reviewed by me: Yes EKG Reviewed by me: Yes Hospitalist ROS - Review of Systems Constitutional: reports: weakness, malaise Respiratory: reports: shortness of breath - Medication Medications: Active Medications Generic Name Dose Route Start Last Admin Trade Name Freq PRN Reason Stop Dose Admin Acetaminophen 650 mg 06/18/20 16:48 06/28/20 21:13 Acetaminophen 325 Mg Tab PO 650 mg Q4H PRN Administration Headache/Fever/Mild Pain (1-3) Albuterol Sulfate 2 puff 06/21/20 14:30 07/02/20 11:48 Albuterol 200 Puff (6.7gm Inhaler) INH 2 puff V1ED-HO NI Administration Enoxaparin Sodium 40 mg 06/18/20 21:00 07/02/20 08:42 Enoxaparin Sodium 40 Mg/0.4 Ml Syringe SC 40 mg 0900,2100 NI Administration Finasteride 5 mg 06/19/20 09:00 07/02/20 08:42 Finasteride 5 Mg Tab PO 5 mg DAILY NI Administration Gabapentin 300 mg 06/18/20 21:00 07/01/20 21:14 Gabapentin 300 Mg Cap PO 300 mg HS NI Administration Glipizide 5 mg 06/19/20 09:00 07/02/20 08:42 Glipizide 5 Mg Tab PO 5 mg DAILY NI Administration Glipizide 2.5 mg 06/19/20 17:00 07/01/20 18:33 Glipizide 5 Mg Tab PO 2.5 mg QPM-WM NI Administration Guaifenesin/Dextromethorphan 15 ml 06/18/20 16:48 06/25/20 01:56 Guaifenesin Dm 100-10/5 Ml Udcup PO 15 ml Q4H PRN Administration Cough Insulin Glargine 30 units/ 0.3 mls @ 0 mls/hr 06/18/20 21:00 07/01/20 21:14 Miscellaneous Medication SC 0.3 mls HS NI Administration Insulin Human Lispro 0 units 06/18/20 16:48 07/01/20 18:32 Humalog 300 Units/3 Ml Vial SC 2 unit .MILD SLIDING SCALE PRN Administration Mild Correctional Scale Insulin Human Lispro 0 units 06/18/20 16:48 06/29/20 21:16 Humalog 300 Units/3 Ml Vial SC 3 unit .BEDTIME SLIDING SC PRN Administration Bedtime Correctional Scale Melatonin 6 mg 06/25/20 23:44 07/01/20 21:14 Melatonin 3 Mg Tab PO 6 mg HS PRN Administration Insomnia Metformin HCl 1,000 mg 06/19/20 08:00 07/02/20 08:42 Metformin 500 Mg Tab PO 1,000 mg BID-WM NI Administration Mometasone Furoate/Formoterol Fumar 2 puff 06/19/20 06:30 07/02/20 08:41 Mometasone 200 Mcg/Formoterol 5 Mcg 120 Puff Inhaler INH 2 puff BID-RT IN Administration Pantoprazole Sodium 40 mg 06/23/20 09:00 07/02/20 08:42 Pantoprazole 40 Mg Tab PO 40 mg DAILY NI Administration Sodium Chloride 10 ml 06/19/20 09:00 07/02/20 08:42 Flush - Normal Saline 10 Ml Syringe IVF 10 ml Q12HR NI Administration Sodium Chloride 10 ml 06/19/20 01:30 06/25/20 23:56 Flush - Normal Saline 10 Ml Syringe IVF 10 ml PRN PRN Administration Saline Flush - Exam General Appearance: awake alert Eye: PERRL ENT: normocephalic atraumatic, no oropharyngeal lesions Neck: supple, symmetric, no JVD, no thyromegaly Gastrointestinal: soft, non-tender, non-distended Neurological: cranial nerve grossly intact Psychiatric: normal affect, normal behavior, A&O x 3 Hosp A/P (1) Acute respiratory failure with hypoxia Code(s): J96.01 - ACUTE RESPIRATORY FAILURE WITH HYPOXIA Status: Acute (2) Pneumonia due to COVID-19 virus Code(s): U07.1 - COVID-19; J12.89 - OTHER VIRAL PNEUMONIA Status: Acute (3) COPD (chronic obstructive pulmonary disease) Status: Chronic Qualifiers: COPD type: chronic bronchitis Chronic bronchitis type: mucopurulent Qualified Code(s): J41.1 - Mucopurulent chronic bronchitis (4) Diabetes mellitus type 2, insulin dependent Code(s): E11.9 - TYPE 2 DIABETES MELLITUS WITHOUT COMPLICATIONS; Z79.4 - RETIREMENT (CURRENT) USE OF INSULIN Status: Chronic (5) Generalized weakness Code(s): R53.1 - WEAKNESS Status: Acute - Plan plan discussed w/ family, PT/OT, transition social worker #1. Acute respiratory failure with hypoxia. Suspect secondary to COVID-19 pneumonia. Continue O2 supplementation as needed. 06/22/2020. He is requiring a little more oxygen according to nursing staff. However his saturation is above 95%. I am going to try to wean him down. Respiratory failure likely related to COVID-19 pneumonia. 06/23/2020. He continues to require O2 at 6 L/min. An attempt to wean him down was unsuccessful yesterday. We will continue to provide his and hopefully wean as tolerated. 06/24/2020. We have weaned him down to 4 L by nasal cannula. Continue to titrate this down. 06/25/2020. He is now on 2.5 L of nasal cannula and saturating above 95%. 06/27/2020. He has been weaned off of O2 via nasal cannula. 06/28/2020. He remains off of O2 via nasal cannula. 2. COVID-19 pneumonia. Continue IV antibiotics, follow-up on all active cultures, bronchodilators and steroids. 06/22/2020. He is tolerating antibiotics. He is getting remdesivir as well. We will continue bronchodilators and steroids. 06/23/2020. This has worsened considerably. He will continue remdesivir. Continue current management plan. 06/27/2020. Continue current management plan. #3. COPD. Continue O2 supplementation, bronchodilators and steroids. 06/22/2020. Continue breathing treatment. We will keep on O2. 4. Diabetes type 2. Continue sliding scale coverage. #5. Acute encephalopathy. Likely hospital-acquired delirium. 6. Physical debility. Continue PT, OT. We will plan for rehab hopefully sometime next week. 06/30/2020. He can proceed to rehab once he is approved.
[2020-07-02] MEDS: Insulin Glargine 30 UNITS in Pre-Filled Syringe 1 EACH SC SCH (20:38)
[2020-07-02] MEDS: Gabapentin 300 MG CAP PO SCH (20:39)
[2020-07-03] MEDS: Albuterol 200 PUFF (6.7GM INHALER) INH SCH ×6 (04:59→20:30)
[2020-07-03] MEDS: Mometasone 200 MCG/Formoterol 5 MCG 120 PUFF INHALER INH SCH ×2 (05:45→17:36)
[2020-07-03] MEDS: Finasteride 5 MG TAB PO SCH (08:27)
[2020-07-03] MEDS: Enoxaparin Sodium 40 MG/0.4 ML SYRINGE SC SCH ×2 (08:27→20:18)
[2020-07-03] MEDS: glipiZIDE 5 MG TAB PO SCH ×2 (08:27→17:36)
[2020-07-03] MEDS: metFORMIN 500 MG TAB PO SCH ×2 (08:27→17:36)
[2020-07-03] MEDS: HumaLOG 300 UNITS/3 ML VIAL SC PRN (11:24)
[2020-07-03] MEDS: Acetaminophen 325 MG TAB PO PRN ×2 (13:43→17:40)
--- NOTE | 2020-07-03 14:18 | PDOC.HOSPP ---
- Subjective Encounter Date: 07/03/20 Encounter Time: 14:16 Subjective: Mr. Quintanilla was seen and evaluated. This is an 85-year-old gentleman admitted with Covid pneumonia and generalized weakness. From the Covid standpoint he seems to be doing really well. He is basically on room air but will use 1 to 2 L as needed. At this point in time he is pending transfer to rehab [facility]. Case management continues to work on placement. He can transfer whenever he is approved. Only other pertinent finding is that occasionally the patient will get disoriented and confused but for the most part he has remained stable. - Objective Vital Signs & Weight: Vital Signs (12 hours) Temp Pulse Resp BP Pulse Ox 07/03/20 11:12 97.4 F L 75 20 100/64 93 L 07/03/20 08:33 96.4 F L 72 22 H 108/69 90 L 07/03/20 03:52 98.3 F 70 22 H 93/59 L 92 L 07/03/20 02:56 92 L Weight Admit Weight 210 lb 6.4 oz Weight 200 lb 8 oz I&O: 07/02/20 07/03/20 07/04/20 06:59 06:59 06:59 Intake Total 713 1440 Output Total 424 855 Balance 289 585 Result Diagrams: 06/25/20 05:20 06/25/20 05:20 Additional Labs: Accuchecks 07/03/20 07/03/20 07/03/20 11:16 05:49 00:47 POC Glucose 177 H 92 115 H 07/02/20 07/02/20 20:59 16:27 POC Glucose 173 H 126 H Radiology Reviewed by me: Yes EKG Reviewed by me: Yes Hospitalist ROS - Review of Systems Constitutional: reports: weakness, malaise Respiratory: reports: cough, dry - Medication Medications: Active Medications Generic Name Dose Route Start Last Admin Trade Name Freq PRN Reason Stop Dose Admin Acetaminophen 650 mg 06/18/20 16:48 07/03/20 13:43 Acetaminophen 325 Mg Tab PO 650 mg Q4H PRN Administration Headache/Fever/Mild Pain (1-3) Albuterol Sulfate 2 puff 06/21/20 14:30 07/03/20 11:05 Albuterol 200 Puff (6.7gm Inhaler) INH 2 puff [id number] NI Administration Enoxaparin Sodium 40 mg 06/18/20 21:00 07/03/20 08:27 Enoxaparin Sodium 40 Mg/0.4 Ml Syringe SC 40 mg 0900,2100 NI Administration Finasteride 5 mg 06/19/20 09:00 07/03/20 08:27 Finasteride 5 Mg Tab PO 5 mg DAILY NI Administration Gabapentin 300 mg 06/18/20 21:00 07/02/20 20:39 Gabapentin 300 Mg Cap PO 300 mg HS NI Administration Glipizide 5 mg 06/19/20 09:00 07/03/20 08:27 Glipizide 5 Mg Tab PO 5 mg DAILY NI Administration Glipizide 2.5 mg 06/19/20 17:00 07/02/20 18:34 Glipizide 5 Mg Tab PO 2.5 mg QPM-WM NI Administration Guaifenesin/Dextromethorphan 15 ml 06/18/20 16:48 06/25/20 01:56 Guaifenesin Dm 100-10/5 Ml Udcup PO 15 ml Q4H PRN Administration Cough Insulin Glargine 30 units/ 0.3 mls @ 0 mls/hr 06/18/20 21:00 07/02/20 20:38 Miscellaneous Medication SC 0.3 mls HS NI Administration Insulin Human Lispro 0 units 06/18/20 16:48 07/03/20 11:24 Humalog 300 Units/3 Ml Vial SC 2 unit .MILD SLIDING SCALE PRN Administration Mild Correctional Scale Insulin Human Lispro 0 units 06/18/20 16:48 06/29/20 21:16 Humalog 300 Units/3 Ml Vial SC 3 unit .BEDTIME SLIDING SC PRN Administration Bedtime Correctional Scale Melatonin 6 mg 06/25/20 23:44 07/01/20 21:14 Melatonin 3 Mg Tab PO 6 mg HS PRN Administration Insomnia Metformin HCl 1,000 mg 06/19/20 08:00 07/03/20 08:27 Metformin 500 Mg Tab PO 1,000 mg BID-WM NI Administration Mometasone Furoate/Formoterol Fumar 2 puff 06/19/20 06:30 07/03/20 05:45 Mometasone 200 Mcg/Formoterol 5 Mcg 120 Puff Inhaler INH 2 puff BID-RT NI Administration Pantoprazole Sodium 40 mg 06/23/20 09:00 07/03/20 08:28 Pantoprazole 40 Mg Tab PO 40 mg DAILY NI Administration Sodium Chloride 10 ml 06/19/20 09:00 07/03/20 08:28 Flush - Normal Saline 10 Ml Syringe IVF 10 ml Q12HR NI Administration Sodium Chloride 10 ml 06/19/20 01:30 06/25/20 23:56 Flush - Normal Saline 10 Ml Syringe IVF 10 ml PRN PRN Administration Saline Flush - Exam General Appearance: NAD, awake alert Eye: PERRL, anicteric sclera ENT: normocephalic atraumatic, no oropharyngeal lesions, moist mucosa Neck: supple, symmetric, no JVD, no thyromegaly, no lymphadenopathy Heart: RRR, no murmur, no gallops, no rubs, normal peripheral pulses Respiratory: CTAB, no wheezes, no rales, no ronchi, normal chest expansion Gastrointestinal: soft, non-tender, non-distended, normal bowel sounds, no palpable masses Neurological: cranial nerve grossly intact, normal sensation to touch Psychiatric: normal affect, normal behavior, oriented to person, oriented to place Hosp A/P (1) Acute respiratory failure with hypoxia Code(s): J96.01 - ACUTE RESPIRATORY FAILURE WITH HYPOXIA Status: Acute (2) Pneumonia due to COVID-19 virus Code(s): U07.1 - COVID-19; J12.89 - OTHER VIRAL PNEUMONIA Status: Acute (3) COPD (chronic obstructive pulmonary disease) Status: Chronic Qualifiers: COPD type: chronic bronchitis Chronic bronchitis type: mucopurulent Qualified Code(s): J41.1 - Mucopurulent chronic bronchitis (4) Diabetes mellitus type 2, insulin dependent Code(s): E11.9 - TYPE 2 DIABETES MELLITUS WITHOUT COMPLICATIONS; Z79.4 - [facility] (CURRENT) USE OF INSULIN Status: Chronic (5) Generalized weakness Code(s): R53.1 - WEAKNESS Status: Acute - Plan PT/OT, respiratory therapy, incentive spirometry #1. Acute respiratory failure with hypoxia. Suspect secondary to COVID-19 pneumonia. Continue O2 supplementation as needed. 06/22/2020. He is requiring a little more oxygen according to nursing staff. However his saturation is above 95%. I am going to try to wean him down. Respiratory failure likely related to COVID-19 pneumonia. 06/23/2020. He continues to require O2 at 6 L/min. An attempt to wean him down was unsuccessful yesterday. We will continue to provide his and hopefully wean as tolerated. 06/24/2020. We have weaned him down to 4 L by nasal cannula. Continue to titrate this down. 06/25/2020. He is now on 2.5 L of nasal cannula and saturating above 95%. 06/27/2020. He has been weaned off of O2 via nasal cannula. 06/28/2020. He remains off of O2 via nasal cannula. 2. COVID-19 pneumonia. Continue IV antibiotics, follow-up on all active cultures, bronchodilators and steroids. 06/22/2020. He is tolerating antibiotics. He is getting remdesivir as well. We will continue bronchodilators and steroids. 06/23/2020. This has worsened considerably. He will continue remdesivir. Continue current management plan. 06/27/2020. Continue current management plan. #3. COPD. Continue O2 supplementation, bronchodilators and steroids. 06/22/2020. Continue breathing treatment. We will keep on O2. 4. Diabetes type 2. Continue sliding scale coverage. #5. Acute encephalopathy. Likely hospital-acquired delirium. 6. Physical debility. Continue PT, OT. We will plan for rehab hopefully sometime next week. 06/30/2020. He can proceed to rehab once he is approved. 07/03/2020. He is still pending rehab placement. He can proceed to rehab whenever he is approved. He is clinically stable.
[2020-07-03] MEDS: Gabapentin 300 MG CAP PO SCH (20:18)
[2020-07-03] MEDS: Insulin Glargine 30 UNITS in Pre-Filled Syringe 1 EACH SC SCH (20:18)
[2020-07-04] MEDS: Albuterol 200 PUFF (6.7GM INHALER) INH SCH ×4 (04:06→16:12)
[2020-07-04 05:17] LABS: #Eosinphils 0.1 thou/uL (0.0-0.7); #Lymphocytes 0.9 thou/uL (1.20-3.40); #Monocytes 0.6 thou/uL (0.11-0.59); #Neutrophils 5.7 thou/uL (1.40-6.50); %Basophils 0.3 % (0.0-1.0); %Eosinophils 1.3 % (0.0-10.0); %Lymphocytes 12.8 % (21.0-51.0); %Monocytes 7.6 % (0.0-10.0); %Neutrophils 78.1 % (42.0-75.0); Hemoglobin 14.6 g/dL (14.0-18.0); Mean Corpuscular HGB CONC 32.9 g/dL (32.0-36.0); Mean Corpuscular Hemoglobin 30.6 pg (27.0-31.0); Platelet Count 171 thou/uL (130-400); RBC Distribution Width 12.9 % (11.5-14.5); Red Blood Cell (RBC) Count 4.76 mill/uL (4.70-6.10); White Blood Cell (WBC) Count 7.3 thou/uL (4.8-10.8)
[2020-07-04 05:39] LABS: Anion Gap 15 mmol/L (10-20); BUN (Urea Nitrogen) 17 mg/dL (8.4-25.7); Calc. Creatinine Clearance 93 mL/min (70-130); Calcium 8.7 mg/dL (7.8-10.44); Carbon Dioxide 26 mmol/L (23-31); Chloride 101 mmol/L (98-107); Glucose 146 mg/dL (83-110); Potassium 3.8 mmol/L (3.5-5.1); Sodium 138 mmol/L (136-145)
[2020-07-04] MEDS: Mometasone 200 MCG/Formoterol 5 MCG 120 PUFF INHALER INH SCH (06:36)
[2020-07-04] MEDS: glipiZIDE 5 MG TAB PO SCH ×2 (09:09→16:13)
[2020-07-04] MEDS: metFORMIN 500 MG TAB PO SCH ×2 (09:09→16:12)
[2020-07-04] MEDS: Finasteride 5 MG TAB PO SCH (09:10)
[2020-07-04] MEDS: Enoxaparin Sodium 40 MG/0.4 ML SYRINGE SC SCH (09:10)
[2020-07-04] MEDS: HumaLOG 300 UNITS/3 ML VIAL SC PRN (12:09)
[2020-07-04] MEDS: Acetaminophen 325 MG TAB PO PRN ×2 (12:18→16:13)
[2020-07-04 16:52] VITALS: BP 98/62; TEMP 97.9
--- NOTE | 2020-07-04 18:52 | PDOC.DS.DS ---
Provider - Provider Date of Admission: 06/18/20 15:28 Date of Discharge: 07/04/20 Admitting Provider: Fredi Hutchinson MD Primary Care Physician: [facility] Course - Hospital Course Hospital Course: This is an 85-year-old male patient with a history of COPD, diabetes mellitus And bladder cancer who presented on the day of admission a few days after he was tested positive for Covid. After his initial positive test he was admitted briefly and discharged only for him to come back if worsening respiratory distress. He was noted to have been found on the ground unable to get up with oxygen saturation at about 77%. On readmission he was placed on oxygen therapy, managed on steroids and anticoagulation. Oxygen was gradually weaned down to between 1.5 and 2.5%. He was discharged to rehab to continue management. Resuscitation Status: 06/18/20 14:40 Resuscitation Status Routine Resuscitation Status: FULL: Full Resuscitation Discussed with: Patient - Labs Lab Results: 07/04/20 04:47 07/04/20 04:47 Abnormal Lab Results - Last 48 hrs 07/04/20 04:47: Neutrophils % 78.1 H, Lymphocytes % 12.8 L, Lymphocytes # 0.9 L, Monocytes # 0.6 H - Physical Exam Vitals: Vital Signs (12 hours) Temp Pulse Resp BP Pulse Ox Pulse Ox Pulse Ox 07/04/20 16:26 97.9 F 87 20 98/62 92 L 07/04/20 15:05 92 L 88 L 07/04/20 10:40 98.4 F 92 19 102/56 L 93 L 07/04/20 09:17 98.2 F 83 22 H 98/53 L 94 L Weight Admit Weight 210 lb 6.4 oz Weight 200 lb 8 oz Physical Exam: The patient was seen and examined on the day of discharge. General: In bed, in no acute distress. CVS: S1-S2 present. No murmurs gallops or rubs. Respiratory system: On 2 L nasal cannula oxygen. Reduced air entry bilaterally. Abdomen: Benign Extremities: No edema. Problem - Discharge Plan Assessment: Pneumonia due to Covid Currently on 1.5 to 2.5 L of oxygento continue weaning down. We will continue anticoagulation Diabetes mellitus Continue glargine and correctional insulin. COPD Continue supplemental oxygen and bronchodilators as needed. Plan - Discharge Medications Home Medications: Medication Instructions Recorded Confirmed Type Albuterol Sulfate [Proair 1 inh INH Q4HR PRN 06/15/20 06/18/20 History Digihaler] Budesonide-Formoterol [Symbicort 2 inh INH PRN PRN 06/15/20 06/18/20 History 160-4.5] Finasteride [Proscar] 5 mg PO DAILY 06/15/20 06/18/20 History Gabapentin [Neurontin] 1 cap PO HS 06/15/20 06/18/20 History Lisinopril [Zestril] 5 mg PO DAILY 06/15/20 06/18/20 History Tiotropium [place] [Spiriva 2 puff INH DAILY 06/15/20 06/18/20 History Respimat] glipiZIDE [Glipizide] 7.5 mg PO DAILY 06/15/20 06/18/20 History metFORMIN [Glucophage] 1,000 mg PO BID 06/15/20 06/18/20 History Dexamethasone [Decadron] 6 mg PO QAM-WM #8 tab 06/16/20 06/18/20 Rx Acetaminophen [Tylenol Regular 650 mg PO Q4H PRN tab 07/04/20 Rx Strength] Acetaminophen [Tylenol Suppository] 650 mg IN Q4H PRN supp 07/04/20 Rx Albuterol Sulfate [Proventil Hfa] 2 puff INH Q4H PRN aer 07/04/20 Rx Albuterol Sulfate [Proventil Hfa] 2 puff INH [id number] aer 07/04/20 Rx Dextrose 50% 25 gm SLOW IVP PRN PRN syringe 07/04/20 Rx Enoxaparin Sodium [Lovenox] 40 mg SC 0900,2100 syringe 07/04/20 Rx Glucagon 1 mg IM PRN PRN vial 07/04/20 Rx Guaifenesin DM 100-10 [Robitussin 15 ml PO Q4H PRN ml 07/04/20 Rx DM] Insulin Glargine [Lantus Vial] 30 units SC HS vial 07/04/20 Rx Melatonin 6 mg PO HS PRN tab 07/04/20 Rx Ondansetron HCl/PF [Zofran] 4 mg IVP Q6H PRN vial 07/04/20 Rx Ondansetron [Zofran ODT] 4 mg PO Q6H PRN tab 07/04/20 Rx Pantoprazole [Protonix] 40 mg PO DAILY tab 07/04/20 Rx Sennosides/Docusate Sodium 2 tab PO BID PRN tab 07/04/20 Rx [Senokot S] Allergies: No Known Allergies Allergy (Verified 06/18/20 17:31) - Discharge Instructions Discharge Instructions:: Insulin: mild sliding scale Activity:: Activity as Tolerated Nourishment:: Diabetic Diet - Follow up Plan Referrals: [facility] [Primary Care Provider] - Disposition: REHAB FACILITY Quality - Care Measures CORE MEASURES:: N/A
== END 2020-07-04 17:24 | DRG 177 ==
LOC: ERS 11:08 → 2SW 15:28
PROVIDERS: ADMIT Emergency Medicine; ATTEND Hospitalist
PROC: XW033E5 Introduction of Remdesivir Anti-infective into Peripheral Vein, Percutaneous Approach, New Technology Group 5 (ICD-10-PCS; principal; 2020-06-18)
PROC: 8E0ZXY6 Isolation (ICD-10-PCS; 2020-06-18)
DX: U07.1 COVID-19 (principal); J12.89 Other viral pneumonia; J96.01 Acute respiratory failure with hypoxia; J44.0 Chronic obstructive pulmonary disease with (acute) lower respiratory infection; G93.49 Other encephalopathy; F05 Delirium due to known physiological condition; E11.9 Type 2 diabetes mellitus without complications; R77.8 Other specified abnormalities of plasma proteins; Z85.51 Personal history of malignant neoplasm of bladder; Z87.891 Personal history of nicotine dependence; Z79.899 Other long term (current) drug therapy; Z79.51 Long term (current) use of inhaled steroids; Z79.4 Long term (current) use of insulin; Z87.19 Personal history of other diseases of the digestive system; Z98.890 Other specified postprocedural states
CPT/HCPCS: 36415; 36416; 71045; 80048; 80053; 80076; 82553; 83735; 83880; 84484; 85025; 85379; 93005; 93010; 96365; 96375; J0456; J0692; J1100; J1650; J1815; J1940; J3490; J7050; J8540

== ENCOUNTER 2021-08-25 13:06 | Emergency (ER) | payer MEDICARE, OTHER ==
[2021-08-25 15:31] LABS: #Eosinphils 0.1 thou/uL (0.0-0.7); #Lymphocytes 1.6 thou/uL (1.20-3.40); #Monocytes 0.5 thou/uL (0.11-0.59); #Neutrophils 4.3 thou/uL (1.40-6.50); %Basophils 0.5 % (0.0-1.0); %Eosinophils 1.2 % (0.0-10.0); %Lymphocytes 23.9 % (21.0-51.0); %Monocytes 7.6 % (0.0-10.0); %Neutrophils 66.8 % (42.0-75.0); Hemoglobin 13.8 g/dL (14.0-18.0); Mean Corpuscular HGB CONC 31.7 g/dL (32.0-36.0); Mean Corpuscular Volume 94.5 fL (78.0-98.0); Platelet Count 196 thou/uL (130-400); RBC Distribution Width 12.6 % (11.5-14.5); White Blood Cell (WBC) Count 6.5 thou/uL (4.8-10.8)
[2021-08-25 15:53] LABS: ALT (SGPT) 26 U/L (8-55); AST (SGOT) 27 U/L (5-34); Albumin 3.6 g/dL (3.4-4.8); Alkaline Phosphatase 78 U/L (40-110); Anion Gap 15 mmol/L (10-20); BUN (Urea Nitrogen) 17 mg/dL (8.4-25.7); Bilirubin, Total 0.4 mg/dL (0.2-1.2); Calc. Creatinine Clearance 0 mL/min (70-130); Calcium 9.3 mg/dL (7.8-10.44); Carbon Dioxide 22 mmol/L (23-31); Chloride 104 mmol/L (98-107); Globulin 3.3 g/dL (2.4-3.5); Glucose 306 mg/dL (83-110); Potassium 4.4 mmol/L (3.5-5.1); Protein, Total 6.9 g/dL (5.8-8.1); Sodium 137 mmol/L (136-145)
[2021-08-26 13:23] LABS: SARS-CoV-2 PCR by NAA Not Detected (NotDetected)
== END 2021-08-25 16:42 | disposition home or self-care (01) ==
LOC: ERS 13:06
DX: R06.00 Dyspnea, unspecified (principal); R07.89 Other chest pain; E11.9 Type 2 diabetes mellitus without complications; J44.9 Chronic obstructive pulmonary disease, unspecified; Z20.822 Contact with and (suspected) exposure to COVID-19; Z87.891 Personal history of nicotine dependence; Z79.84 Long term (current) use of oral hypoglycemic drugs; Z79.899 Other long term (current) drug therapy
CPT/HCPCS: 71045; 80053; 83880; 85025; 93005; 99285; U0003; U0005

== ENCOUNTER 2022-04-07 13:08 | Outpatient (CLI) | payer OTHER | END 2022-04-07 13:09 | disposition home or self-care (01) | LOC: BICCT 13:08 | PROVIDERS: ATTEND Internal Medicine | DX: I69.911 Memory deficit following unspecified cerebrovascular disease (principal) | CPT/HCPCS: 70450 ==

== ENCOUNTER 2022-06-11 16:04 | Observation (INO) | payer MEDICARE, OTHER ==
[~2022-06-11 16:04] MED LIST: Iopamidol-370 76% 500 ML 1 ML ONE
[2022-06-11 16:31] LABS: #Eosinphils 0.1 thou/uL (0.0-0.7); #Lymphocytes 1.9 thou/uL (1.20-3.40); #Neutrophils 9.3 thou/uL (1.40-6.50); %Basophils 0.1 % (0.0-1.0); %Eosinophils 0.7 % (0.0-10.0); %Lymphocytes 15.7 % (21.0-51.0); %Neutrophils 75.6 % (42.0-75.0); Mean Corpuscular HGB CONC 32.2 g/dL (32.0-36.0); Mean Corpuscular Hemoglobin 31.1 pg (27.0-31.0); Mean Corpuscular Volume 96.8 fl (78.0-98.0); Mean Platelet Volume 9.5 fL (7.4-10.4); Platelet Count 216 10x3/uL (130-400); RBC Distribution Width 12.7 % (11.5-14.5); Red Blood Cell (RBC) Count 4.82 mill/uL (4.70-6.10); White Blood Cell (WBC) Count 12.3 10x3/uL (4.8-10.8)
[2022-06-11] MEDS ORDERED: Ondansetron PF 4 MG/2 ML Vial ONE (16:42)
[2022-06-11] MEDS ORDERED: Morphine 4 MG/ML VIAL ONE (16:42)
[2022-06-11 16:47] LABS: ALT (SGPT) 56 U/L (8-55); AST (SGOT) 44 U/L (5-34); Alkaline Phosphatase 151 U/L (40-110); Anion Gap 16 mmol/L (10-20); BUN (Urea Nitrogen) 20 mg/dL (8.4-25.7); Bilirubin, Total 0.5 mg/dL (0.2-1.2); CK (CPK) 73 U/L (30-200); Calc. Creatinine Clearance 0 mL/min (70-130); Calcium 9.8 mg/dL (7.8-10.44); Carbon Dioxide 23 mmol/L (23-31); Chloride 106 mmol/L (98-107); Estimated GFR 66; Globulin 3.5 g/dL (2.4-3.5); Glucose 221 mg/dL (83-110); Lipase 8 U/L (8-78); Potassium 4.6 mmol/L (3.5-5.1); Protein, Total 7.5 g/dL (5.8-8.1); Sodium 140 mmol/L (136-145)
[2022-06-11] MEDS ORDERED: Piperacillin/Tazobactam 3.375 GM VIAL ONE (20:22)
[2022-06-11 20:40] LABS: Bacteria/HPF 4+ HPF (None Seen); Bilirubin Negative (Negative); Blood, Urine Trace (Negative); Clarity Turbid (Clear); Glucose, Urine (Dipstick) Normal (Negative); Ketone, Urine Negative (Negative); Leukocyte 500 Leu/uL (Negative); Nitrite Negative (Negative); Protein, Urine (Dipstick) 10 mg/dL (Neg-Trace); Squamous Epithelial None Seen HPF (0-3); Urobilinogen Normal mg/dL (Less than 2); WBC/HPF Greater than 50 HPF (0-3); pH, Urine 5.5 (5.0-9.0)
[2022-06-11 20:41] LABS: Specific Gravity, Urine 1.043 (1.002-1.036)
[2022-06-11 21:17] LABS: Lactic Acid 1.7 mmol/L (0.5-2.2)
[2022-06-11] MEDS ORDERED: Senokot S 8.6-50 MG TAB PO PRN (22:12)
[2022-06-11] MEDS ORDERED: Acetaminophen 325 MG TAB PO PRN (22:12)
[2022-06-11] MEDS ORDERED: HumaLOG 300 UNITS/3 ML VIAL SC PRN (22:15)
[2022-06-11] MEDS ORDERED: Dextrose 5% in Water 1,000 ML IV PRN (22:15)
[2022-06-11] MEDS ORDERED: Dextrose 50% Abboject 50 ML SYRINGE SLOW IVP PRN (22:15)
[2022-06-11] MEDS ORDERED: Albuterol Sulfate 2.5 mg/3 ml Neb NEB PRN (22:17)
[2022-06-11 23:47] VITALS: BMI 27.5
[2022-06-12] MEDS: cefTRIAXone\\ROCEPHIN 1 GM in Sodium Chloride 0.9% 100 ML IVPB SCH ×2 (00:04→22:09)
[2022-06-12 06:37] LABS: #Eosinphils 0.2 thou/uL (0.0-0.7); #Lymphocytes 1.3 thou/uL (1.20-3.40); #Monocytes 0.5 thou/uL (0.11-0.59); #Neutrophils 6.5 thou/uL (1.40-6.50); %Basophils 0.2 % (0.0-1.0); %Eosinophils 2.2 % (0.0-10.0); %Lymphocytes 15.3 % (21.0-51.0); %Monocytes 5.4 % (0.0-10.0); Hemoglobin 12.7 g/dL (14.0-18.0); Mean Corpuscular HGB CONC 32.6 g/dL (32.0-36.0); Mean Corpuscular Hemoglobin 31.6 pg (27.0-31.0); Mean Corpuscular Volume 96.7 fl (78.0-98.0); Mean Platelet Volume 9.4 fL (7.4-10.4); Platelet Count 155 10x3/uL (130-400); RBC Distribution Width 12.6 % (11.5-14.5); Red Blood Cell (RBC) Count 4.01 mill/uL (4.70-6.10); White Blood Cell (WBC) Count 8.4 10x3/uL (4.8-10.8)
[2022-06-12 06:38] LABS: SARS-CoV-2 NAA Rapid Test Not Detected (NotDetected)
[2022-06-12] MEDS: Ipratropium Bromide 2.5 ml Neb NEB SCH (06:38)
[2022-06-12] MEDS: Famotidine 20 MG TAB PO SCH ×2 (08:55→21:04)
[2022-06-12] MEDS: Finasteride 5 MG TAB PO SCH (08:55)
[2022-06-12] MEDS ORDERED: Lisinopril 5 MG TAB PO SCH (09:00)
[2022-06-12 19:26] VITALS: TEMP 97.4
[2022-06-12] MEDS ORDERED: Gabapentin 300 MG CAP PO SCH (21:00)
[2022-06-12] MEDS ORDERED: HumaLOG 300 UNITS/3 ML VIAL SC PRN (21:18)
[2022-06-13 07:49] VITALS: BP 117/66
[2022-06-13] MEDS: Famotidine 20 MG TAB PO SCH (08:55)
[2022-06-13] MEDS: Finasteride 5 MG TAB PO SCH (08:56)
[2022-06-13] MEDS: Ipratropium Bromide 2.5 ml Neb NEB SCH (13:56)
== END 2022-06-13 16:45 | disposition home or self-care (01) ==
LOC: ERS 16:04 → T4-B 20:54
PROVIDERS: ADMIT Internal Medicine; ATTEND Internal Medicine
DX: N39.0 Urinary tract infection, site not specified (principal); E11.10 Type 2 diabetes mellitus with ketoacidosis without coma; J41.1 Mucopurulent chronic bronchitis; I10 Essential (primary) hypertension; R53.1 Weakness; K57.30 Diverticulosis of large intestine without perforation or abscess without bleeding; K80.20 Calculus of gallbladder without cholecystitis without obstruction; I71.43 Infrarenal abdominal aortic aneurysm, without rupture; Z85.51 Personal history of malignant neoplasm of bladder; Z87.891 Personal history of nicotine dependence; Z79.01 Long term (current) use of anticoagulants; Z79.4 Long term (current) use of insulin; Z79.84 Long term (current) use of oral hypoglycemic drugs; Z79.899 Other long term (current) drug therapy; Z20.822 Contact with and (suspected) exposure to COVID-19
CPT/HCPCS: 36415; 71045; 74177; 80053; 81003; 81015; 82550; 83605; 83690; 83880; 84484; 85025; 87040; 87077; 87086; 87149; 87186; 93005; 94640; 96375; 96376; G0378; J0696; J1815; J2270; J2405; J2543; J3490; J7611; Q9967; U0002

== ENCOUNTER 2022-08-21 19:11 | Emergency (ER) | payer OTHER ==
[2022-08-21] MEDS ORDERED: Fentanyl 100 MCG/2 ML VIAL ONE (20:44)
[2022-08-21 21:32] LABS: #Eosinphils 0.1 thou/uL (0.0-0.7); #Lymphocytes 1.8 thou/uL (1.20-3.40); #Monocytes 0.5 thou/uL (0.11-0.59); #Neutrophils 3.5 thou/uL (1.40-6.50); %Basophils 0.8 % (0.0-1.0); %Eosinophils 1.7 % (0.0-10.0); %Lymphocytes 30.2 % (21.0-51.0); %Monocytes 8.4 % (0.0-10.0); %Neutrophils 58.9 % (42.0-75.0); Hemoglobin 13.4 g/dL (14.0-18.0); Mean Corpuscular HGB CONC 33.4 g/dL (32.0-36.0); Mean Corpuscular Volume 95.7 fl (78.0-98.0); Mean Platelet Volume 9.8 fL (7.4-10.4); Platelet Count 157 10x3/uL (130-400); RBC Distribution Width 12.6 % (11.5-14.5); Red Blood Cell (RBC) Count 4.19 mill/uL (4.70-6.10); White Blood Cell (WBC) Count 5.9 10x3/uL (4.8-10.8)
[2022-08-21 21:57] LABS: ALT (SGPT) 37 U/L (8-55); AST (SGOT) 36 U/L (5-34); Albumin 3.4 g/dL (3.4-4.8); Alkaline Phosphatase 102 U/L (40-110); Anion Gap 13 mmol/L (10-20); BUN (Urea Nitrogen) 20 mg/dL (8.4-25.7); Bilirubin, Total 0.3 mg/dL (0.2-1.2); CK (CPK) 130 U/L (30-200); Calc. Creatinine Clearance 0 mL/min (70-130); Calcium 8.9 mg/dL (7.8-10.44); Carbon Dioxide 22 mmol/L (23-31); Chloride 108 mmol/L (98-107); Estimated GFR 86; Globulin 2.8 g/dL (2.4-3.5); Glucose 188 mg/dL (83-110); Potassium 4.1 mmol/L (3.5-5.1); Protein, Total 6.2 g/dL (5.8-8.1); Sodium 139 mmol/L (136-145)
[2022-08-21 22:45] LABS: Bilirubin Negative (Negative); Blood, Urine Negative (Negative); Clarity Clear (Clear); Glucose, Urine (Dipstick) 150 mg/dL (Negative); Ketone, Urine Negative (Negative); Leukocyte 250 Leu/uL (Negative); Nitrite Negative (Negative); Protein, Urine (Dipstick) 10 mg/dL (Neg-Trace); RBC/HPF 0-3 HPF (0-3); Specific Gravity, Urine 1.025 (1.002-1.036); Squamous Epithelial 0-3 HPF (0-3); Urobilinogen 12 mg/dL (Less than 2); pH, Urine 6.5 (5.0-9.0)
[2022-08-21 22:52] LABS: Bacteria/HPF 1+ HPF (None Seen)
[2022-08-21] MEDS ORDERED: cefTRIAXone\\ROCEPHIN 1 GM VIAL ONE (23:04)
== END 2022-08-22 00:04 | disposition home or self-care (01) ==
LOC: ERS 19:11
DX: N30.00 Acute cystitis without hematuria (principal); E11.9 Type 2 diabetes mellitus without complications; J44.9 Chronic obstructive pulmonary disease, unspecified; Z87.81 Personal history of (healed) traumatic fracture; Z79.84 Long term (current) use of oral hypoglycemic drugs; Z79.899 Other long term (current) drug therapy
CPT/HCPCS: 36415; 71275; 74174; 80053; 81003; 81015; 82550; 85025; 87086; 93005; 96374; 96375; J0696; J3010; Q9967

== ENCOUNTER 2022-09-18 00:33 | Inpatient (IN) | payer MEDICARE, OTHER ==
[2022-09-18] MEDS ORDERED: Acetaminophen 500 MG TAB ONE (01:00)
[2022-09-18] MEDS ORDERED: Dexamethasone 10 MG/ML VIAL ONE (01:00)
[2022-09-18] MEDS ORDERED: Ipratropium/Albuterol 3 ML NEB ONE (01:47)
[2022-09-18 01:55] LABS: #Lymphocytes 0.9 thou/uL (1.20-3.40); #Monocytes 0.8 thou/uL (0.11-0.59); #Neutrophils 13.8 thou/uL (1.40-6.50); %Basophils 0.1 % (0.0-1.0); %Eosinophils 0.3 % (0.0-10.0); %Lymphocytes 5.7 % (21.0-51.0); %Monocytes 5.1 % (0.0-10.0); %Neutrophils 88.9 % (42.0-75.0); Hemoglobin 13.8 g/dL (14.0-18.0); Mean Corpuscular HGB CONC 33.2 g/dL (32.0-36.0); Mean Corpuscular Hemoglobin 31.8 pg (27.0-31.0); Mean Corpuscular Volume 95.6 fl (78.0-98.0); Mean Platelet Volume 9.9 fL (7.4-10.4); Platelet Count 146 10x3/uL (130-400); RBC Distribution Width 12.5 % (11.5-14.5); Red Blood Cell (RBC) Count 4.36 mill/uL (4.70-6.10); White Blood Cell (WBC) Count 15.5 10x3/uL (4.8-10.8)
[2022-09-18 02:18] LABS: ALT (SGPT) 41 U/L (8-55); AST (SGOT) 46 U/L (5-34); Albumin 3.6 g/dL (3.4-4.8); Alkaline Phosphatase 118 U/L (40-110); Anion Gap 16 mmol/L (10-20); BUN (Urea Nitrogen) 22 mg/dL (8.4-25.7); Bilirubin, Total 0.7 mg/dL (0.2-1.2); Calc. Creatinine Clearance 0 mL/min (70-130); Calcium 9.1 mg/dL (7.8-10.44); Carbon Dioxide 21 mmol/L (23-31); Chloride 106 mmol/L (98-107); Estimated GFR 85; Globulin 2.9 g/dL (2.4-3.5); Glucose 184 mg/dL (83-110); Potassium 4.5 mmol/L (3.5-5.1); Protein, Total 6.5 g/dL (5.8-8.1); Sodium 138 mmol/L (136-145)
[2022-09-18 02:34] LABS: Bacteria/HPF None Seen HPF (None Seen); Bilirubin Negative (Negative); Blood, Urine Negative (Negative); Clarity Clear (Clear); Glucose, Urine (Dipstick) Normal (Negative); Ketone, Urine Negative (Negative); Leukocyte 75 Leu/uL (Negative); Nitrite Negative (Negative); Protein, Urine (Dipstick) Negative (Neg-Trace); RBC/HPF 0-3 HPF (0-3); Specific Gravity, Urine 1.018 (1.002-1.036); Squamous Epithelial 0-3 HPF (0-3); Urobilinogen 3 mg/dL (Less than 2)
[2022-09-18] MEDS ORDERED: cefTRIAXone\\ROCEPHIN 1 GM VIAL ONE (02:39)
[2022-09-18] MEDS ORDERED: Dextrose 5% in Water 1,000 ML IV PRN (04:07)
[2022-09-18] MEDS ORDERED: Dextrose 50% Abboject 50 ML SYRINGE SLOW IVP PRN (04:07)
[2022-09-18] MEDS ORDERED: Ipratropium/Albuterol 3 ML NEB NEB PRN (04:16)
[2022-09-18] MEDS ORDERED: Vancomycin 1.5 GM in Premix Bag 1 BAG IVPB SCH ×2 (05:00→09:00)
[2022-09-18 05:27] LABS: Lactic Acid 5.9 mmol/L (0.5-2.2)
[2022-09-18] MEDS ORDERED: Cefepime 1 GM VIAL ONE (05:59)
[2022-09-18] MEDS: Cefepime 1 GM in Sodium Chloride 0.9% 100 ML IVPB SCH ×2 (06:00→17:45)
[2022-09-18] MEDS: Lactated Ringer's 1,000 ML IV SCH ×3 (06:00→22:28)
[2022-09-18] MEDS ORDERED: VANCOMYCIN 2 GRAM/500 ML BAG 2 GM in Premix Bag 1 BAG IVPB SCH (06:00)
[2022-09-18 08:15] LABS: Lactic Acid 8.6 mmol/L (0.5-2.2)
[2022-09-18] MEDS ORDERED: Iopamidol-370 76% 500 ML 1 ML ONE (08:35)
[2022-09-18] MEDS ORDERED: Cefepime 1 GM in Sodium Chloride 0.9% 100 ML IVPB SCH (09:00)
[2022-09-18] MEDS: Ipratropium Bromide 2.5 ml Neb NEB SCH ×3 (11:55→19:49)
[2022-09-18] MEDS: Gabapentin 300 MG CAP PO SCH ×2 (12:24→22:23)
[2022-09-18] MEDS: metFORMIN 500 MG TAB PO SCH (12:24)
[2022-09-18] MEDS: Finasteride 5 MG TAB PO SCH (12:24)
[2022-09-18] MEDS: Insulin Glargine 30 UNITS/0.3 ML VIAL SC SCH ×2 (12:25→22:24)
[2022-09-18 12:32] LABS: SARS-CoV-2 NAA Rapid Test Not Detected (NotDetected)
[2022-09-18 16:20] VITALS: BMI 4061.7
[2022-09-18] MEDS: HumaLOG 300 UNITS/3 ML VIAL SC PRN ×2 (17:43→22:26)
[2022-09-19] MEDS: Ipratropium Bromide 2.5 ml Neb NEB SCH ×4 (00:48→18:43)
[2022-09-19 04:32] LABS: #Lymphocytes 1.7 thou/uL (1.20-3.40); #Monocytes 0.7 thou/uL (0.11-0.59); #Neutrophils 10.4 thou/uL (1.40-6.50); %Basophils 0.1 % (0.0-1.0); %Eosinophils 0.3 % (0.0-10.0); %Lymphocytes 13.2 % (21.0-51.0); %Monocytes 5.1 % (0.0-10.0); %Neutrophils 81.3 % (42.0-75.0); Hemoglobin 11.7 g/dL (14.0-18.0); Mean Corpuscular HGB CONC 33.5 g/dL (32.0-36.0); Mean Corpuscular Hemoglobin 32.8 pg (27.0-31.0); Mean Corpuscular Volume 98.2 fl (78.0-98.0); Mean Platelet Volume 9.9 fL (7.4-10.4); Platelet Count 140 10x3/uL (130-400); RBC Distribution Width 12.6 % (11.5-14.5); Red Blood Cell (RBC) Count 3.55 mill/uL (4.70-6.10); White Blood Cell (WBC) Count 12.8 10x3/uL (4.8-10.8)
[2022-09-19 04:57] LABS: ALT (SGPT) 33 U/L (8-55); AST (SGOT) 29 U/L (5-34); Albumin 3.1 g/dL (3.4-4.8); Alkaline Phosphatase 85 U/L (40-110); Anion Gap 11 mmol/L (10-20); BUN (Urea Nitrogen) 19 mg/dL (8.4-25.7); Bilirubin, Total 0.3 mg/dL (0.2-1.2); Calc. Creatinine Clearance 95 mL/min (70-130); Calcium 8.4 mg/dL (7.8-10.44); Carbon Dioxide 22 mmol/L (23-31); Chloride 108 mmol/L (98-107); Estimated GFR 88; Globulin 2.7 g/dL (2.4-3.5); Glucose 168 mg/dL (83-110); Protein, Total 5.8 g/dL (5.8-8.1); Sodium 137 mmol/L (136-145)
[2022-09-19] MEDS: Cefepime 1 GM in Sodium Chloride 0.9% 100 ML IVPB SCH ×2 (05:28→17:47)
[2022-09-19] MEDS: HumaLOG 300 UNITS/3 ML VIAL SC PRN ×2 (05:36→17:48)
[2022-09-19] MEDS ORDERED: Vancomycin 1.5 GRAM/300 ML BAG 1.5 GM in Premix Bag 1 BAG IVPB SCH (06:00)
[2022-09-19] MEDS: Gabapentin 300 MG CAP PO SCH (10:25)
[2022-09-19] MEDS: metFORMIN 500 MG TAB PO SCH (10:26)
[2022-09-19] MEDS: Finasteride 5 MG TAB PO SCH (10:29)
[2022-09-19] MEDS: Lactated Ringer's 1,000 ML IV SCH (10:38)
[2022-09-19] MEDS: Insulin Glargine 30 UNITS/0.3 ML VIAL SC SCH (10:40)
[2022-09-19 12:06] LABS: Lactic Acid 1.8 mmol/L (0.5-2.2)
[2022-09-20] MEDS: Gabapentin 300 MG CAP PO SCH ×3 (00:20→21:04)
[2022-09-20] MEDS: Insulin Glargine 30 UNITS/0.3 ML VIAL SC SCH ×3 (00:20→21:06)
[2022-09-20] MEDS: Ipratropium Bromide 2.5 ml Neb NEB SCH ×4 (01:43→18:40)
[2022-09-20 05:21] LABS: Vancomycin, Trough 9.3 ug/mL
[2022-09-20] MEDS: Cefepime 1 GM in Sodium Chloride 0.9% 100 ML IVPB SCH (05:30)
[2022-09-20] MEDS ORDERED: Vancomycin 1 GM in Premix Bag 1 BAG IVPB SCH (06:00)
[2022-09-20 06:11] LABS: ALT (SGPT) 34 U/L (8-55); AST (SGOT) 35 U/L (5-34); Albumin 3.2 g/dL (3.4-4.8); Alkaline Phosphatase 86 U/L (40-110); Anion Gap 13 mmol/L (10-20); BUN (Urea Nitrogen) 19 mg/dL (8.4-25.7); Bilirubin, Total 0.4 mg/dL (0.2-1.2); Calc. Creatinine Clearance 93 mL/min (70-130); Calcium 9.4 mg/dL (7.8-10.44); Carbon Dioxide 24 mmol/L (23-31); Chloride 107 mmol/L (98-107); Estimated GFR 88; Globulin 3.1 g/dL (2.4-3.5); Glucose 153 mg/dL (83-110); Potassium 3.9 mmol/L (3.5-5.1); Protein, Total 6.3 g/dL (5.8-8.1); Sodium 140 mmol/L (136-145)
[2022-09-20] MEDS: metFORMIN 500 MG TAB PO SCH (08:34)
[2022-09-20] MEDS: Finasteride 5 MG TAB PO SCH (08:35)
[2022-09-20 08:56] LABS: #Eosinphils 0.2 thou/uL (0.0-0.7); #Lymphocytes 1.4 thou/uL (1.20-3.40); #Monocytes 0.6 thou/uL (0.11-0.59); #Neutrophils 4.7 thou/uL (1.40-6.50); %Basophils 0.4 % (0.0-1.0); %Eosinophils 3.6 % (0.0-10.0); %Lymphocytes 20.4 % (21.0-51.0); %Monocytes 8.1 % (0.0-10.0); %Neutrophils 67.6 % (42.0-75.0); Hemoglobin 12.4 g/dL (14.0-18.0); Mean Corpuscular HGB CONC 32.5 g/dL (32.0-36.0); Mean Corpuscular Hemoglobin 31.4 pg (27.0-31.0); Mean Corpuscular Volume 96.4 fl (78.0-98.0); Platelet Count 143 10x3/uL (130-400); RBC Distribution Width 12.4 % (11.5-14.5); Red Blood Cell (RBC) Count 3.96 mill/uL (4.70-6.10); White Blood Cell (WBC) Count 6.9 10x3/uL (4.8-10.8)
[2022-09-20] MEDS: HumaLOG 300 UNITS/3 ML VIAL SC PRN ×3 (14:28→21:04)
[2022-09-20] MEDS: Amoxicillin/Potassium Clav 875 MG TAB PO SCH (21:03)
[2022-09-21] MEDS: Ipratropium Bromide 2.5 ml Neb NEB SCH ×4 (00:32→18:56)
[2022-09-21 05:32] LABS: ALT (SGPT) 32 U/L (8-55); AST (SGOT) 36 U/L (5-34); Albumin 3.1 g/dL (3.4-4.8); Alkaline Phosphatase 84 U/L (40-110); Anion Gap 12 mmol/L (10-20); BUN (Urea Nitrogen) 17 mg/dL (8.4-25.7); Bilirubin, Total 0.4 mg/dL (0.2-1.2); Calc. Creatinine Clearance 88 mL/min (70-130); Calcium 9.2 mg/dL (7.8-10.44); Carbon Dioxide 27 mmol/L (23-31); Chloride 104 mmol/L (98-107); Estimated GFR 86; Globulin 3.1 g/dL (2.4-3.5); Glucose 211 mg/dL (83-110); Potassium 3.8 mmol/L (3.5-5.1); Protein, Total 6.2 g/dL (5.8-8.1); Sodium 139 mmol/L (136-145)
[2022-09-21] MEDS: Amoxicillin/Potassium Clav 875 MG TAB PO SCH ×2 (09:29→22:02)
[2022-09-21] MEDS: Gabapentin 300 MG CAP PO SCH ×2 (09:29→22:02)
[2022-09-21] MEDS: Finasteride 5 MG TAB PO SCH (09:29)
[2022-09-21] MEDS: metFORMIN 500 MG TAB PO SCH (09:30)
[2022-09-21] MEDS: Insulin Glargine 30 UNITS/0.3 ML VIAL SC SCH ×2 (09:30→22:03)
[2022-09-21] MEDS: HumaLOG 300 UNITS/3 ML VIAL SC PRN ×3 (12:29→22:03)
[2022-09-21 12:52] LABS: #Eosinphils 0.2 thou/uL (0.0-0.7); #Lymphocytes 1.4 thou/uL (1.20-3.40); #Monocytes 0.4 thou/uL (0.11-0.59); #Neutrophils 4.2 thou/uL (1.40-6.50); %Basophils 0.1 % (0.0-1.0); %Lymphocytes 22.2 % (21.0-51.0); %Monocytes 6.3 % (0.0-10.0); %Neutrophils 67.4 % (42.0-75.0); Hemoglobin 13.6 g/dL (14.0-18.0); Mean Corpuscular HGB CONC 32.6 g/dL (32.0-36.0); Mean Corpuscular Hemoglobin 31.7 pg (27.0-31.0); Mean Platelet Volume 10.5 fL (7.4-10.4); Platelet Count 164 10x3/uL (130-400); RBC Distribution Width 12.5 % (11.5-14.5); Red Blood Cell (RBC) Count 4.28 mill/uL (4.70-6.10); White Blood Cell (WBC) Count 6.2 10x3/uL (4.8-10.8)
[2022-09-22] MEDS: Ipratropium Bromide 2.5 ml Neb NEB SCH ×4 (01:33→18:52)
[2022-09-22 05:21] LABS: Anion Gap 14 mmol/L (10-20); BUN (Urea Nitrogen) 20 mg/dL (8.4-25.7); Carbon Dioxide 24 mmol/L (23-31); Chloride 104 mmol/L (98-107); Potassium 3.8 mmol/L (3.5-5.1); Sodium 138 mmol/L (136-145)
[2022-09-22 05:22] LABS: ALT (SGPT) 33 U/L (8-55); AST (SGOT) 36 U/L (5-34); Albumin 3.2 g/dL (3.4-4.8); Alkaline Phosphatase 86 U/L (40-110); Bilirubin, Total 0.3 mg/dL (0.2-1.2); Calc. Creatinine Clearance 87 mL/min (70-130); Calcium 8.7 mg/dL (7.8-10.44); Estimated GFR 86; Glucose 199 mg/dL (83-110); Protein, Total 6.2 g/dL (5.8-8.1)
[2022-09-22] MEDS ORDERED: Insulin Glargine 30 UNITS/0.3 ML VIAL SC SCH (09:45)
[2022-09-22] MEDS: Finasteride 5 MG TAB PO SCH (11:17)
[2022-09-22] MEDS: Amoxicillin/Potassium Clav 875 MG TAB PO SCH ×2 (11:17→19:43)
[2022-09-22] MEDS: Gabapentin 300 MG CAP PO SCH ×2 (11:17→19:43)
[2022-09-22] MEDS: metFORMIN 500 MG TAB PO SCH (11:18)
[2022-09-22] MEDS: Insulin Glargine 30 UNITS/0.3 ML VIAL SC SCH ×2 (11:26→19:43)
[2022-09-22] MEDS: HumaLOG 300 UNITS/3 ML VIAL SC PRN (18:13)
[2022-09-23] MEDS: Ipratropium Bromide 2.5 ml Neb NEB SCH ×4 (00:42→18:54)
[2022-09-23 05:06] LABS: ALT (SGPT) 33 U/L (8-55); AST (SGOT) 34 U/L (5-34); Albumin 3.4 g/dL (3.4-4.8); Alkaline Phosphatase 88 U/L (40-110); Anion Gap 12 mmol/L (10-20); BUN (Urea Nitrogen) 19 mg/dL (8.4-25.7); Bilirubin, Total 0.3 mg/dL (0.2-1.2); Calc. Creatinine Clearance 82 mL/min (70-130); Carbon Dioxide 25 mmol/L (23-31); Chloride 105 mmol/L (98-107); Estimated GFR 84; Globulin 3.2 g/dL (2.4-3.5); Glucose 217 mg/dL (83-110); Potassium 3.8 mmol/L (3.5-5.1); Protein, Total 6.6 g/dL (5.8-8.1); Sodium 138 mmol/L (136-145)
[2022-09-23] MEDS: HumaLOG 300 UNITS/3 ML VIAL SC PRN ×2 (06:24→11:13)
[2022-09-23 07:10] LABS: #Eosinphils 0.3 thou/uL (0.0-0.7); #Lymphocytes 1.7 thou/uL (1.20-3.40); #Monocytes 0.5 thou/uL (0.11-0.59); #Neutrophils 3.7 thou/uL (1.40-6.50); %Basophils 0.5 % (0.0-1.0); %Eosinophils 4.6 % (0.0-10.0); %Monocytes 7.6 % (0.0-10.0); %Neutrophils 60.3 % (42.0-75.0); Hemoglobin 12.7 g/dL (14.0-18.0); Mean Corpuscular HGB CONC 32.3 g/dL (32.0-36.0); Mean Corpuscular Hemoglobin 31.6 pg (27.0-31.0); Mean Corpuscular Volume 97.8 fl (78.0-98.0); Platelet Count 166 10x3/uL (130-400); RBC Distribution Width 12.5 % (11.5-14.5); Red Blood Cell (RBC) Count 4.03 mill/uL (4.70-6.10); White Blood Cell (WBC) Count 6.2 10x3/uL (4.8-10.8)
[2022-09-23] MEDS: Gabapentin 300 MG CAP PO SCH ×2 (08:41→19:58)
[2022-09-23] MEDS: Finasteride 5 MG TAB PO SCH (08:41)
[2022-09-23] MEDS: Amoxicillin/Potassium Clav 875 MG TAB PO SCH ×2 (08:41→19:58)
[2022-09-23] MEDS: metFORMIN 500 MG TAB PO SCH (08:42)
[2022-09-23] MEDS ORDERED: Insulin Glargine 30 UNITS/0.3 ML VIAL SC SCH ×3 (09:00→09:30)
[2022-09-23 09:13] LABS: #Eosinphils 0.2 thou/uL (0.0-0.7); #Lymphocytes 1.6 thou/uL (1.20-3.40); #Monocytes 0.5 thou/uL (0.11-0.59); #Neutrophils 3.9 thou/uL (1.40-6.50); %Basophils 0.7 % (0.0-1.0); %Eosinophils 3.6 % (0.0-10.0); %Lymphocytes 25.5 % (21.0-51.0); %Monocytes 8.4 % (0.0-10.0); %Neutrophils 61.7 % (42.0-75.0); Hemoglobin 12.3 g/dL (14.0-18.0); Mean Corpuscular HGB CONC 32.4 g/dL (32.0-36.0); Mean Corpuscular Hemoglobin 31.6 pg (27.0-31.0); Mean Corpuscular Volume 97.5 fl (78.0-98.0); Mean Platelet Volume 9.7 fL (7.4-10.4); Platelet Count 144 10x3/uL (130-400); RBC Distribution Width 12.5 % (11.5-14.5); Red Blood Cell (RBC) Count 3.88 mill/uL (4.70-6.10); White Blood Cell (WBC) Count 6.3 10x3/uL (4.8-10.8)
[2022-09-23 19:46] VITALS: BP 113/59; TEMP 98.5
[2022-09-23] MEDS: Insulin Glargine 30 UNITS/0.3 ML VIAL SC SCH (19:58)
[2022-09-24] MEDS ORDERED: Insulin Glargine 30 UNITS/0.3 ML VIAL SC SCH (09:00)
[2022-09-24] MEDS ORDERED: Polyethylene Glycol 3350 17 GM Packet PO SCH (09:00)
== END 2022-09-23 20:35 | DRG 871 ==
LOC: ERS 00:33 → ERHOLD 03:14 → 2NO 10:28
PROVIDERS: ADMIT Family Medicine; ATTEND Family Medicine
DX: A41.9 Sepsis, unspecified organism (principal); J18.9 Pneumonia, unspecified organism; J96.01 Acute respiratory failure with hypoxia; J44.1 Chronic obstructive pulmonary disease with (acute) exacerbation; J44.0 Chronic obstructive pulmonary disease with (acute) lower respiratory infection; Z20.822 Contact with and (suspected) exposure to COVID-19; I10 Essential (primary) hypertension; H54.40 Blindness, one eye, unspecified eye; I44.1 Atrioventricular block, second degree; E11.65 Type 2 diabetes mellitus with hyperglycemia; R74.01 Elevation of levels of liver transaminase levels; I71.40 Abdominal aortic aneurysm, without rupture, unspecified; Z98.890 Other specified postprocedural states; Z85.51 Personal history of malignant neoplasm of bladder; Z79.84 Long term (current) use of oral hypoglycemic drugs; Z79.899 Other long term (current) drug therapy; Z79.51 Long term (current) use of inhaled steroids
CPT/HCPCS: 36415; 36416; 71045; 71275; 80053; 80202; 81003; 81015; 83605; 83880; 84145; 84484; 85025; 87040; 93005; 93306; 93970; 94640; 94644; 96361; 96365; 96372; 96375; J0692; J0696; J1100; J1650; J1815; J3370; J3370-JW; J3490; J7120; J7620; Q9967

== ENCOUNTER 2022-09-29 01:09 | Inpatient (IN) | payer OTHER, MEDICARE ==
[2022-09-29 01:30] LABS: Actual Bicarbonate (HCO3a) 17.5 mEq/L (22-28); Analyzer IN Cardio ER; Base Excess (BEa) -6.5 mEq/L (-2.0 to +3.0); CO2 Tension 30.9 mmHg (35.0-45.0); Calcium, Ionized (arterial) 1.08 mmol/L (1.12-1.30); Carboxyhemoglobin (COHb) 0.9 gm% (0.0-3.0); Hemoglobin (Hb) 14.6 g/dL (14.0-18.0); O2 Tension (PaO2), arterial 84.8 mmHg (> 60.0); Potassium - ABG Lab 3.97 mmol/L (3.70-5.30); pH, Arterial 7.37 (7.35-7.45)
[2022-09-29] MEDS ORDERED: Diltiazem HCl 125 MG, Admixture Fee 1 EACH in Sodium Chloride 0.9% 100 ML IVPB SCH (01:30)
[2022-09-29 01:47] LABS: #Eosinphils 0.1 thou/uL (0.0-0.7); #Monocytes 0.2 thou/uL (0.11-0.59); #Neutrophils 11.7 thou/uL (1.40-6.50); %Basophils 0.1 % (0.0-1.0); %Eosinophils 0.4 % (0.0-10.0); %Monocytes 1.4 % (0.0-10.0); %Neutrophils 90.2 % (42.0-75.0); Hemoglobin 15.3 g/dL (14.0-18.0); Mean Corpuscular Hemoglobin 31.8 pg (27.0-31.0); Mean Corpuscular Volume 96.6 fl (78.0-98.0); Mean Platelet Volume 9.6 fL (7.4-10.4); Platelet Count 189 10x3/uL (130-400); RBC Distribution Width 12.6 % (11.5-14.5); Red Blood Cell (RBC) Count 4.79 mill/uL (4.70-6.10); White Blood Cell (WBC) Count 12.9 10x3/uL (4.8-10.8)
[2022-09-29] MEDS ORDERED: Cefepime 2 GM VIAL ONE (01:59)
[2022-09-29 02:03] LABS: ALT (SGPT) 42 U/L (8-55); AST (SGOT) 42 U/L (5-34); Albumin 3.6 g/dL (3.4-4.8); Alkaline Phosphatase 111 U/L (40-110); Anion Gap 18 mmol/L (10-20); BUN (Urea Nitrogen) 25 mg/dL (8.4-25.7); Bilirubin, Total 0.8 mg/dL (0.2-1.2); Calc. Creatinine Clearance 0 mL/min (70-130); Calcium 8.6 mg/dL (7.8-10.44); Carbon Dioxide 20 mmol/L (23-31); Chloride 101 mmol/L (98-107); Estimated GFR 62; Globulin 3.4 g/dL (2.4-3.5); Glucose 279 mg/dL (83-110); Potassium 4.2 mmol/L (3.5-5.1); Sodium 135 mmol/L (136-145)
[2022-09-29] MEDS ORDERED: Ketorolac Tromethamine 30 MG/ML VIAL ONE (02:08)
[2022-09-29] MEDS ORDERED: Vancomycin 1 GM/200 ML (FROZEN) BAG ONE (02:08)
[2022-09-29] MEDS ORDERED: NOREPINEPHRINE 8 MG/250 ML-D5W 250 ML ONE (02:44)
[2022-09-29 03:24] LABS: SARS-CoV-2 NAA Rapid Test Not Detected (NotDetected)
[2022-09-29 03:39] LABS: ALV-art Gradient 518.275 mmHg (0-20); Puncture Site LRA
[2022-09-29 03:43] LABS: Bilirubin Negative (Negative); Blood, Urine 3+ (Negative); Clarity Clear (Clear); Glucose, Urine (Dipstick) 100 mg/dL (Negative); Ketone, Urine Negative (Negative); Leukocyte Negative Leu/uL (Negative); Nitrite Negative (Negative); Protein, Urine (Dipstick) 10 mg/dL (Neg-Trace); RBC/HPF Greater than 50 HPF (0-3); Specific Gravity, Urine 1.018 (1.002-1.036); Squamous Epithelial None Seen HPF (0-3); Urobilinogen Normal mg/dL (Less than 2); WBC/HPF 0-3 HPF (0-3); pH, Urine 5.5 (5.0-9.0)
[2022-09-29 03:46] LABS: Bacteria/HPF 1+ HPF (None Seen)
[2022-09-29] MEDS ORDERED: Ondansetron PF 4 MG/2 ML Vial IVP PRN (04:55)
[2022-09-29] MEDS ORDERED: NOREPINEPHRINE 8 MG/250 ML-D5W 250 ML IVPB PRN (04:55)
[2022-09-29] MEDS ORDERED: Electrolyte Replacement Protocol 1 EACH IVPB PRN (04:55)
[2022-09-29] MEDS ORDERED: Dextrose 5% in Water 1,000 ML IV PRN (05:06)
[2022-09-29] MEDS ORDERED: Dextrose 50% Abboject 50 ML SYRINGE SLOW IVP PRN (05:06)
[2022-09-29 05:24] VITALS: BMI 29.2
[2022-09-29] MEDS ORDERED: Ipratropium Bromide 2.5 ml Neb NEB PRN (05:24)
[2022-09-29] MEDS ORDERED: Benzonatate 100 MG CAP PO PRN (05:28)
[2022-09-29] MEDS ORDERED: Guaifenesin DM 100-10/5 ML UDCUP PO PRN (05:28)
[2022-09-29] MEDS ORDERED: Digoxin 0.5 MG/2 ML AMP SLOW IVP SCH (05:30)
[2022-09-29] MEDS ORDERED: Sodium Chloride 0.9% 1,000 ML IV SCH ×2 (05:30)
[2022-09-29] MEDS ORDERED: Sodium Chloride 0.9% 500 ML IV SCH (05:30)
[2022-09-29 05:38] LABS: Lactic Acid 3.2 mmol/L (0.5-2.2)
[2022-09-29] MEDS ORDERED: Piperacillin/Tazobactam 4.5 GM in Sodium Chloride 0.9% 100 ML IVPB SCH (06:00)
[2022-09-29] MEDS ORDERED: Piperacillin/Tazobactam 3.375 GM in Sodium Chloride 0.9% 100 ML IVPB SCH (06:00)
[2022-09-29] MEDS: Ipratropium Bromide 2.5 ml Neb NEB SCH ×3 (07:32→18:22)
[2022-09-29] MEDS: NOREPINEPHRINE 8 MG/250 ML-D5W 250 ML IVPB SCH ×2 (08:15→15:45)
[2022-09-29 08:37] LABS: Hemoglobin A1c 7.7 % (4.0-6.0)
[2022-09-29] MEDS: Famotidine 20 MG TAB PO SCH ×2 (08:52→20:44)
[2022-09-29] MEDS: Lactated Ringer's 1,000 ML IV SCH ×2 (08:53→16:50)
[2022-09-29] MEDS ORDERED: Cefepime 2 GM in Sodium Chloride 0.9% 100 ML IVPB SCH (10:00)
[2022-09-29] MEDS: Piperacillin/Tazobactam 3.375 GM in Sodium Chloride 0.9% 100 ML IVPB SCH ×2 (10:49→17:39)
[2022-09-29] MEDS ORDERED: Insulin Glargine 30 UNITS/0.3 ML VIAL SC SCH (11:30)
[2022-09-29] MEDS ORDERED: metFORMIN 500 MG TAB PO SCH (11:45)
[2022-09-29] MEDS ORDERED: Vancomycin 1 GM in Premix Bag 1 BAG IVPB SCH (14:00)
[2022-09-29] MEDS: HumaLOG 300 UNITS/3 ML VIAL SC PRN (16:24)
[2022-09-29] MEDS: Vancomycin 1.5 GRAM/300 ML BAG 1.5 GM in Premix Bag 1 BAG IVPB SCH (18:27)
[2022-09-29] MEDS ORDERED: Ketorolac Tromethamine 30 MG/ML VIAL IVP SCH (20:45)
[2022-09-29] MEDS: Insulin Glargine 30 UNITS/0.3 ML VIAL SC SCH (20:50)
[2022-09-30] MEDS ORDERED: Ipratropium Bromide 2.5 ml Neb ONE (01:32)
[2022-09-30] MEDS: Lactated Ringer's 1,000 ML IV SCH ×3 (02:11→13:19)
[2022-09-30] MEDS: Piperacillin/Tazobactam 3.375 GM in Sodium Chloride 0.9% 100 ML IVPB SCH ×3 (02:11→17:09)
[2022-09-30 05:52] LABS: Band 51 % (5-11); Hemoglobin 11.2 g/dL (14.0-18.0); Hypochromia SLIGHT = 6-15 cells (100X) (0-5/hpf); MDiff Complete? YES; Mean Corpuscular HGB CONC 32.5 g/dL (32.0-36.0); Mean Corpuscular Hemoglobin 32.1 pg (27.0-31.0); Mean Corpuscular Volume 98.8 fl (78.0-98.0); Mean Platelet Volume 9.7 fL (7.4-10.4); Metamyelocyte 5 % (0-0); Neutrophil 43 % (42-75); Platelet Count 135 10x3/uL (130-400); Platelet Morphology Comment Appears Adequate; RBC Distribution Width 12.8 % (11.5-14.5); Reactive Lymphocytes 1 % (0-10); Red Blood Cell (RBC) Count 3.48 mill/uL (4.70-6.10); Reflex for Review?? YES; White Blood Cell (WBC) Count 15.5 10x3/uL (4.8-10.8)
[2022-09-30 06:00] LABS: ALT (SGPT) 23 U/L (8-55); AST (SGOT) 22 U/L (5-34); Albumin 2.5 g/dL (3.4-4.8); Alkaline Phosphatase 61 U/L (40-110); Anion Gap 11 mmol/L (10-20); BUN (Urea Nitrogen) 16 mg/dL (8.4-25.7); Bilirubin, Total 0.6 mg/dL (0.2-1.2); Calc. Creatinine Clearance 104 mL/min (70-130); Calcium 7.1 mg/dL (7.8-10.44); Carbon Dioxide 21 mmol/L (23-31); Chloride 110 mmol/L (98-107); Estimated GFR 89; Globulin 2.5 g/dL (2.4-3.5); Glucose 166 mg/dL (83-110); Potassium 3.6 mmol/L (3.5-5.1); Sodium 138 mmol/L (136-145)
[2022-09-30 06:04] LABS: Magnesium 1.4 mg/dL (1.6-2.6)
[2022-09-30] MEDS ORDERED: Magnesium 2 GM/50 ML(in water) 2 GM in Premix Bag 1 BAG IVPB SCH (07:15)
[2022-09-30] MEDS: Ipratropium Bromide 2.5 ml Neb NEB SCH ×3 (07:30→18:21)
[2022-09-30] MEDS ORDERED: Magnesium Sulfate In Water 4 GM in Premix Bag 1 BAG IVPB SCH (08:00)
[2022-09-30] MEDS ORDERED: metFORMIN 500 MG TAB PO SCH (08:00)
[2022-09-30] MEDS: Famotidine 20 MG TAB PO SCH ×2 (09:27→20:19)
[2022-09-30] MEDS: Insulin Glargine 30 UNITS/0.3 ML VIAL SC SCH ×2 (09:27→20:20)
[2022-09-30] MEDS: HumaLOG 300 UNITS/3 ML VIAL SC PRN (16:13)
[2022-09-30] MEDS: Vancomycin 1.5 GRAM/300 ML BAG 1.5 GM in Premix Bag 1 BAG IVPB SCH (17:09)
[2022-09-30 17:33] LABS: Vancomycin, Trough 7.4 ug/mL
[2022-10-01] MEDS: Ipratropium/Albuterol 3 ML NEB NEB PRN ×2 (01:00→13:49)
[2022-10-01] MEDS: Piperacillin/Tazobactam 3.375 GM in Sodium Chloride 0.9% 100 ML IVPB SCH ×3 (02:36→18:37)
[2022-10-01 05:40] LABS: #Eosinphils 0.1 thou/uL (0.0-0.7); #Lymphocytes 1.4 thou/uL (1.20-3.40); #Monocytes 0.5 thou/uL (0.11-0.59); #Neutrophils 12.8 thou/uL (1.40-6.50); %Basophils 0.3 % (0.0-1.0); %Eosinophils 0.4 % (0.0-10.0); %Lymphocytes 9.4 % (21.0-51.0); %Monocytes 3.2 % (0.0-10.0); %Neutrophils 86.7 % (42.0-75.0); Hemoglobin 11.8 g/dL (14.0-18.0); Mean Corpuscular HGB CONC 33.2 g/dL (32.0-36.0); Mean Corpuscular Hemoglobin 32.3 pg (27.0-31.0); Mean Corpuscular Volume 97.2 fl (78.0-98.0); Mean Platelet Volume 9.7 fL (7.4-10.4); Platelet Count 121 10x3/uL (130-400); RBC Distribution Width 12.6 % (11.5-14.5); Red Blood Cell (RBC) Count 3.66 mill/uL (4.70-6.10); White Blood Cell (WBC) Count 14.8 10x3/uL (4.8-10.8)
[2022-10-01 06:07] LABS: ALT (SGPT) 22 U/L (8-55); AST (SGOT) 21 U/L (5-34); Albumin 2.7 g/dL (3.4-4.8); Alkaline Phosphatase 80 U/L (40-110); Anion Gap 13 mmol/L (10-20); BUN (Urea Nitrogen) 13 mg/dL (8.4-25.7); Bilirubin, Total 0.7 mg/dL (0.2-1.2); Calc. Creatinine Clearance 102 mL/min (70-130); Calcium 7.9 mg/dL (7.8-10.44); Carbon Dioxide 21 mmol/L (23-31); Chloride 107 mmol/L (98-107); Estimated GFR 89; Globulin 3.1 g/dL (2.4-3.5); Glucose 178 mg/dL (83-110); Potassium 3.6 mmol/L (3.5-5.1); Protein, Total 5.8 g/dL (5.8-8.1); Sodium 137 mmol/L (136-145)
[2022-10-01] MEDS: Lactated Ringer's 1,000 ML IV SCH ×2 (06:37→17:13)
[2022-10-01] MEDS: Vancomycin 1.5 GRAM/300 ML BAG 1.5 GM in Premix Bag 1 BAG IVPB SCH ×2 (06:37→18:40)
[2022-10-01] MEDS: Ipratropium Bromide 2.5 ml Neb NEB SCH ×3 (08:03→18:26)
[2022-10-01] MEDS: Famotidine 20 MG TAB PO SCH ×2 (09:59→20:32)
[2022-10-01] MEDS: Insulin Glargine 30 UNITS/0.3 ML VIAL SC SCH ×2 (10:01→20:32)
[2022-10-01 10:47] LABS: Magnesium 2.1 mg/dL (1.6-2.6)
[2022-10-01] MEDS: HumaLOG 300 UNITS/3 ML VIAL SC PRN ×2 (13:28→18:44)
[2022-10-02] MEDS: Piperacillin/Tazobactam 3.375 GM in Sodium Chloride 0.9% 100 ML IVPB SCH ×3 (00:54→18:14)
[2022-10-02 04:51] LABS: ALT (SGPT) 22 U/L (8-55); AST (SGOT) 22 U/L (5-34); Albumin 2.6 g/dL (3.4-4.8); Alkaline Phosphatase 87 U/L (40-110); Anion Gap 12 mmol/L (10-20); BUN (Urea Nitrogen) 10 mg/dL (8.4-25.7); Bilirubin, Total 0.9 mg/dL (0.2-1.2); Calc. Creatinine Clearance 110 mL/min (70-130); Calcium 8.3 mg/dL (7.8-10.44); Carbon Dioxide 22 mmol/L (23-31); Chloride 108 mmol/L (98-107); Estimated GFR 91; Globulin 3.2 g/dL (2.4-3.5); Glucose 102 mg/dL (83-110); Potassium 3.3 mmol/L (3.5-5.1); Protein, Total 5.8 g/dL (5.8-8.1); Sodium 139 mmol/L (136-145)
[2022-10-02 04:53] LABS: Vancomycin, Trough 20.4 ug/mL
[2022-10-02] MEDS ORDERED: VANCOMYCIN 1.25 GM/250 ML BAG 1.25 GM in Premix Bag 1 BAG IVPB SCH (06:00)
[2022-10-02] MEDS: Ipratropium Bromide 2.5 ml Neb NEB SCH ×3 (07:11→18:39)
[2022-10-02 07:43] LABS: #Eosinphils 0.1 thou/uL (0.0-0.7); #Lymphocytes 1.1 thou/uL (1.20-3.40); #Monocytes 0.7 thou/uL (0.11-0.59); #Neutrophils 10.6 thou/uL (1.40-6.50); %Basophils 0.2 % (0.0-1.0); %Eosinophils 0.5 % (0.0-10.0); %Lymphocytes 8.5 % (21.0-51.0); %Monocytes 5.4 % (0.0-10.0); %Neutrophils 85.3 % (42.0-75.0); Hemoglobin 11.6 g/dL (14.0-18.0); Mean Corpuscular Hemoglobin 31.1 pg (27.0-31.0); Mean Corpuscular Volume 97.2 fl (78.0-98.0); Mean Platelet Volume 9.3 fL (7.4-10.4); Platelet Count 153 10x3/uL (130-400); RBC Distribution Width 12.5 % (11.5-14.5); Red Blood Cell (RBC) Count 3.73 mill/uL (4.70-6.10); White Blood Cell (WBC) Count 12.4 10x3/uL (4.8-10.8)
[2022-10-02] MEDS: Famotidine 20 MG TAB PO SCH ×2 (07:49→21:48)
[2022-10-02] MEDS: Insulin Glargine 30 UNITS/0.3 ML VIAL SC SCH ×2 (07:49→21:49)
[2022-10-02] MEDS ORDERED: Potassium Chloride 20 MEQ TAB PO SCH ×2 (08:00)
[2022-10-02] MEDS: QUEtiapine 25 MG TAB PO SCH (21:49)
[2022-10-03 04:28] LABS: #Eosinphils 0.2 thou/uL (0.0-0.7); #Lymphocytes 1.4 thou/uL (1.20-3.40); #Monocytes 0.9 thou/uL (0.11-0.59); #Neutrophils 6.6 thou/uL (1.40-6.50); %Basophils 0.2 % (0.0-1.0); %Eosinophils 1.8 % (0.0-10.0); %Lymphocytes 15.9 % (21.0-51.0); %Monocytes 9.7 % (0.0-10.0); %Neutrophils 72.4 % (42.0-75.0); Hemoglobin 12.7 g/dL (14.0-18.0); Mean Corpuscular HGB CONC 32.9 g/dL (32.0-36.0); Mean Corpuscular Hemoglobin 31.7 pg (27.0-31.0); Mean Corpuscular Volume 96.3 fl (78.0-98.0); Mean Platelet Volume 9.2 fL (7.4-10.4); Platelet Count 176 10x3/uL (130-400); RBC Distribution Width 12.6 % (11.5-14.5); Red Blood Cell (RBC) Count 4.01 mill/uL (4.70-6.10); White Blood Cell (WBC) Count 9.1 10x3/uL (4.8-10.8)
[2022-10-03] MEDS: Piperacillin/Tazobactam 3.375 GM in Sodium Chloride 0.9% 100 ML IVPB SCH ×3 (04:43→18:12)
[2022-10-03 04:47] LABS: ALT (SGPT) 22 U/L (8-55); AST (SGOT) 20 U/L (5-34); Albumin 2.7 g/dL (3.4-4.8); Alkaline Phosphatase 86 U/L (40-110); Anion Gap 15 mmol/L (10-20); BUN (Urea Nitrogen) 9 mg/dL (8.4-25.7); Bilirubin, Total 0.9 mg/dL (0.2-1.2); Calc. Creatinine Clearance 104 mL/min (70-130); Calcium 8.2 mg/dL (7.8-10.44); Carbon Dioxide 21 mmol/L (23-31); Chloride 108 mmol/L (98-107); Estimated GFR 90; Globulin 3.3 g/dL (2.4-3.5); Glucose 147 mg/dL (83-110); Potassium 3.6 mmol/L (3.5-5.1); Sodium 140 mmol/L (136-145)
[2022-10-03] MEDS: Ipratropium Bromide 2.5 ml Neb NEB SCH ×3 (08:05→21:48)
[2022-10-03] MEDS: Ipratropium/Albuterol 3 ML NEB NEB PRN ×2 (08:05→15:00)
[2022-10-03] MEDS: Insulin Glargine 30 UNITS/0.3 ML VIAL SC SCH ×2 (08:45→21:48)
[2022-10-03] MEDS: Famotidine 20 MG TAB PO SCH ×2 (08:45→21:48)
[2022-10-03] MEDS: QUEtiapine 25 MG TAB PO SCH (21:48)
[2022-10-04 04:12] LABS: #Eosinphils 0.2 thou/uL (0.0-0.7); #Lymphocytes 1.8 thou/uL (1.20-3.40); #Neutrophils 6.3 thou/uL (1.40-6.50); %Basophils 0.5 % (0.0-1.0); %Eosinophils 1.8 % (0.0-10.0); %Lymphocytes 19.1 % (21.0-51.0); %Monocytes 10.6 % (0.0-10.0); Hemoglobin 13.2 g/dL (14.0-18.0); Mean Corpuscular HGB CONC 32.9 g/dL (32.0-36.0); Mean Corpuscular Hemoglobin 31.8 pg (27.0-31.0); Mean Corpuscular Volume 96.5 fl (78.0-98.0); Mean Platelet Volume 9.1 fL (7.4-10.4); Platelet Count 243 10x3/uL (130-400); RBC Distribution Width 12.6 % (11.5-14.5); Red Blood Cell (RBC) Count 4.15 mill/uL (4.70-6.10); White Blood Cell (WBC) Count 9.3 10x3/uL (4.8-10.8)
[2022-10-04 04:19] LABS: ALT (SGPT) 24 U/L (8-55); AST (SGOT) 22 U/L (5-34); Albumin 2.9 g/dL (3.4-4.8); Alkaline Phosphatase 97 U/L (40-110); Anion Gap 15 mmol/L (10-20); BUN (Urea Nitrogen) 12 mg/dL (8.4-25.7); Bilirubin, Total 0.9 mg/dL (0.2-1.2); Calc. Creatinine Clearance 103 mL/min (70-130); Calcium 8.3 mg/dL (7.8-10.44); Carbon Dioxide 21 mmol/L (23-31); Chloride 105 mmol/L (98-107); Estimated GFR 89; Globulin 3.5 g/dL (2.4-3.5); Glucose 139 mg/dL (83-110); Potassium 3.4 mmol/L (3.5-5.1); Protein, Total 6.4 g/dL (5.8-8.1); Sodium 138 mmol/L (136-145)
[2022-10-04] MEDS: Piperacillin/Tazobactam 3.375 GM in Sodium Chloride 0.9% 100 ML IVPB SCH ×3 (04:22→17:42)
[2022-10-04] MEDS ORDERED: Albumin 5% 0 ML ONE (06:47)
[2022-10-04] MEDS ORDERED: PHENYLEPHRINE-NS 100 MCG/ML 10 ML SYRINGE ONE (06:47)
[2022-10-04] MEDS ORDERED: Bupivacaine/Epinephrine 0.25% 30 ML VIAL ONE (06:48)
[2022-10-04] MEDS ORDERED: Dexamethasone 4 mg/ml Vial ONE (06:48)
[2022-10-04] MEDS: Ipratropium Bromide 2.5 ml Neb NEB SCH ×3 (08:01→19:38)
[2022-10-04] MEDS ORDERED: Lactated Ringer's 1,000 ML IV SCH (08:30)
[2022-10-04] MEDS ORDERED: Potassium Chloride 20 MEQ TAB PO SCH (08:45)
[2022-10-04] MEDS: Famotidine 20 MG TAB PO SCH ×2 (09:00→22:01)
[2022-10-04] MEDS: Insulin Glargine 30 UNITS/0.3 ML VIAL SC SCH (13:54)
[2022-10-04] MEDS: QUEtiapine 25 MG TAB PO SCH (22:01)
[2022-10-05] MEDS: Insulin Glargine 30 UNITS/0.3 ML VIAL SC SCH ×3 (01:24→20:38)
[2022-10-05] MEDS: Piperacillin/Tazobactam 3.375 GM in Sodium Chloride 0.9% 100 ML IVPB SCH ×3 (03:01→18:13)
[2022-10-05] MEDS: Ipratropium Bromide 2.5 ml Neb NEB SCH ×3 (07:24→19:14)
[2022-10-05 07:42] LABS: #Eosinphils 0.2 thou/uL (0.0-0.7); #Lymphocytes 1.4 thou/uL (1.20-3.40); #Monocytes 0.7 thou/uL (0.11-0.59); #Neutrophils 4.4 thou/uL (1.40-6.50); %Basophils 0.7 % (0.0-1.0); %Eosinophils 3.5 % (0.0-10.0); %Monocytes 10.7 % (0.0-10.0); %Neutrophils 64.1 % (42.0-75.0); Hemoglobin 12.7 g/dL (14.0-18.0); Mean Corpuscular HGB CONC 32.3 g/dL (32.0-36.0); Mean Corpuscular Volume 95.9 fl (78.0-98.0); Mean Platelet Volume 8.3 fL (7.4-10.4); Platelet Count 317 10x3/uL (130-400); RBC Distribution Width 12.8 % (11.5-14.5); Red Blood Cell (RBC) Count 4.11 mill/uL (4.70-6.10); White Blood Cell (WBC) Count 6.9 10x3/uL (4.8-10.8)
[2022-10-05 08:10] LABS: ALT (SGPT) 20 U/L (8-55); AST (SGOT) 21 U/L (5-34); Albumin 2.5 g/dL (3.4-4.8); Alkaline Phosphatase 100 U/L (40-110); Anion Gap 17 mmol/L (10-20); BUN (Urea Nitrogen) 11 mg/dL (8.4-25.7); Bilirubin, Total 0.7 mg/dL (0.2-1.2); Calc. Creatinine Clearance 100 mL/min (70-130); Carbon Dioxide 20 mmol/L (23-31); Chloride 106 mmol/L (98-107); Estimated GFR 90; Globulin 3.6 g/dL (2.4-3.5); Glucose 162 mg/dL (83-110); Potassium 3.5 mmol/L (3.5-5.1); Protein, Total 6.1 g/dL (5.8-8.1); Sodium 139 mmol/L (136-145)
[2022-10-05] MEDS ORDERED: Potassium Chloride 20 MEQ TAB PO SCH (09:30)
[2022-10-05] MEDS: Famotidine 20 MG TAB PO SCH ×2 (10:21→20:33)
[2022-10-05] MEDS: QUEtiapine 25 MG TAB PO SCH (20:33)
[2022-10-06] MEDS: Piperacillin/Tazobactam 3.375 GM in Sodium Chloride 0.9% 100 ML IVPB SCH (02:00)
[2022-10-06 07:18] LABS: #Eosinphils 0.3 thou/uL (0.0-0.7); #Lymphocytes 1.2 thou/uL (1.20-3.40); #Monocytes 0.6 thou/uL (0.11-0.59); #Neutrophils 4.2 thou/uL (1.40-6.50); %Basophils 0.4 % (0.0-1.0); %Eosinophils 4.2 % (0.0-10.0); %Lymphocytes 19.4 % (21.0-51.0); %Monocytes 9.6 % (0.0-10.0); %Neutrophils 66.5 % (42.0-75.0); Hemoglobin 12.3 g/dL (14.0-18.0); Mean Corpuscular HGB CONC 32.5 g/dL (32.0-36.0); Mean Corpuscular Hemoglobin 31.5 pg (27.0-31.0); Mean Corpuscular Volume 96.9 fl (78.0-98.0); Mean Platelet Volume 8.3 fL (7.4-10.4); Platelet Count 308 10x3/uL (130-400); RBC Distribution Width 12.8 % (11.5-14.5); Red Blood Cell (RBC) Count 3.92 mill/uL (4.70-6.10); White Blood Cell (WBC) Count 6.3 10x3/uL (4.8-10.8)
[2022-10-06 07:22] LABS: ALT (SGPT) 19 U/L (8-55); AST (SGOT) 20 U/L (5-34); Albumin 2.4 g/dL (3.4-4.8); Alkaline Phosphatase 96 U/L (40-110); Anion Gap 13 mmol/L (10-20); BUN (Urea Nitrogen) 10 mg/dL (8.4-25.7); Bilirubin, Total 0.6 mg/dL (0.2-1.2); Calc. Creatinine Clearance 94 mL/min (70-130); Calcium 8.1 mg/dL (7.8-10.44); Carbon Dioxide 23 mmol/L (23-31); Chloride 107 mmol/L (98-107); Estimated GFR 90; Globulin 3.6 g/dL (2.4-3.5); Glucose 195 mg/dL (83-110); Potassium 3.4 mmol/L (3.5-5.1); Sodium 140 mmol/L (136-145)
[2022-10-06] MEDS ORDERED: Potassium Chloride 20 MEQ TAB PO SCH (07:30)
[2022-10-06] MEDS ORDERED: Magnesium 2 GM/50 ML(in water) 2 GM in Premix Bag 1 BAG IVPB SCH (08:15)
[2022-10-06] MEDS: Amoxicillin/Potassium Clav 875 MG TAB PO SCH ×2 (08:50→21:19)
[2022-10-06] MEDS: Famotidine 20 MG TAB PO SCH ×2 (08:50→21:19)
[2022-10-06] MEDS: Insulin Glargine 30 UNITS/0.3 ML VIAL SC SCH ×2 (09:00→21:19)
[2022-10-06] MEDS: Ipratropium Bromide 2.5 ml Neb NEB SCH ×3 (11:24→18:30)
[2022-10-06] MEDS: QUEtiapine 25 MG TAB PO SCH (21:19)
[2022-10-06] MEDS: HumaLOG 300 UNITS/3 ML VIAL SC PRN (21:21)
[2022-10-07 06:59] LABS: #Eosinphils 0.3 thou/uL (0.0-0.7); #Lymphocytes 1.3 thou/uL (1.20-3.40); #Monocytes 0.5 thou/uL (0.11-0.59); #Neutrophils 4.6 thou/uL (1.40-6.50); %Basophils 0.6 % (0.0-1.0); %Eosinophils 3.9 % (0.0-10.0); %Lymphocytes 19.4 % (21.0-51.0); %Monocytes 7.6 % (0.0-10.0); %Neutrophils 68.5 % (42.0-75.0); Hemoglobin 12.9 g/dL (14.0-18.0); Mean Corpuscular HGB CONC 32.3 g/dL (32.0-36.0); Mean Corpuscular Hemoglobin 31.6 pg (27.0-31.0); Mean Corpuscular Volume 97.8 fl (78.0-98.0); Mean Platelet Volume 8.3 fL (7.4-10.4); Platelet Count 329 10x3/uL (130-400); RBC Distribution Width 12.9 % (11.5-14.5); Red Blood Cell (RBC) Count 4.07 mill/uL (4.70-6.10); White Blood Cell (WBC) Count 6.7 10x3/uL (4.8-10.8)
[2022-10-07] MEDS: Ipratropium Bromide 2.5 ml Neb NEB SCH ×3 (06:59→18:36)
[2022-10-07 07:24] LABS: ALT (SGPT) 18 U/L (8-55); AST (SGOT) 19 U/L (5-34); Albumin 2.5 g/dL (3.4-4.8); Alkaline Phosphatase 103 U/L (40-110); Anion Gap 12 mmol/L (10-20); BUN (Urea Nitrogen) 8 mg/dL (8.4-25.7); Bilirubin, Total 0.5 mg/dL (0.2-1.2); Calc. Creatinine Clearance 91 mL/min (70-130); Calcium 8.2 mg/dL (7.8-10.44); Carbon Dioxide 25 mmol/L (23-31); Chloride 106 mmol/L (98-107); Estimated GFR 90; Globulin 3.8 g/dL (2.4-3.5); Glucose 148 mg/dL (83-110); Potassium 3.7 mmol/L (3.5-5.1); Protein, Total 6.3 g/dL (5.8-8.1); Sodium 139 mmol/L (136-145)
[2022-10-07] MEDS: Famotidine 20 MG TAB PO SCH ×2 (09:56→20:10)
[2022-10-07] MEDS: Amoxicillin/Potassium Clav 875 MG TAB PO SCH ×2 (09:56→20:10)
[2022-10-07] MEDS: Insulin Glargine 30 UNITS/0.3 ML VIAL SC SCH ×2 (09:57→20:11)
[2022-10-07] MEDS ORDERED: TIOTROPIUM BROMIDE INH SCH ×2 (10:30→21:00)
[2022-10-07] MEDS ORDERED: Furosemide 20 MG/2 ML VIAL SLOW IVP SCH (11:45)
[2022-10-07] MEDS: HumaLOG 300 UNITS/3 ML VIAL SC PRN ×3 (13:49→20:11)
[2022-10-07] MEDS: QUEtiapine 25 MG TAB PO SCH (20:10)
[2022-10-07] MEDS: Acetaminophen 325 MG TAB PO PRN (20:11)
[2022-10-08] MEDS: HumaLOG 300 UNITS/3 ML VIAL SC PRN ×3 (06:02→17:35)
[2022-10-08] MEDS: Ipratropium Bromide 2.5 ml Neb NEB SCH ×3 (07:08→19:07)
[2022-10-08] MEDS: Ipratropium/Albuterol 3 ML NEB NEB PRN ×2 (07:17→14:29)
[2022-10-08] MEDS ORDERED: Non-Formulary Item 1 EACH (Tiotropium Bromide 4 GM Inhaler) INH SCH (09:00)
[2022-10-08] MEDS ORDERED: Insulin Glargine 30 UNITS/0.3 ML VIAL SC SCH ×3 (09:00→21:00)
[2022-10-08] MEDS: Amoxicillin/Potassium Clav 875 MG TAB PO SCH (09:31)
[2022-10-08] MEDS: Famotidine 20 MG TAB PO SCH ×2 (09:32→21:15)
[2022-10-08] MEDS: QUEtiapine 25 MG TAB PO SCH (21:15)
[2022-10-09] MEDS: Acetaminophen 325 MG TAB PO PRN ×4 (00:53→21:15)
[2022-10-09] MEDS: HumaLOG 300 UNITS/3 ML VIAL SC PRN ×3 (05:12→18:49)
[2022-10-09] MEDS: Ipratropium Bromide 2.5 ml Neb NEB SCH ×3 (07:07→18:48)
[2022-10-09] MEDS: Insulin Glargine 30 UNITS/0.3 ML VIAL SC SCH ×2 (08:04→21:13)
[2022-10-09] MEDS: Famotidine 20 MG TAB PO SCH ×2 (08:05→21:13)
[2022-10-09 09:19] LABS: #Eosinphils 0.2 thou/uL (0.0-0.7); #Lymphocytes 1.4 thou/uL (1.20-3.40); #Monocytes 0.6 thou/uL (0.11-0.59); #Neutrophils 4.7 thou/uL (1.40-6.50); %Basophils 0.1 % (0.0-1.0); %Lymphocytes 19.9 % (21.0-51.0); %Monocytes 8.5 % (0.0-10.0); %Neutrophils 68.6 % (42.0-75.0); Hemoglobin 12.4 g/dL (14.0-18.0); Mean Corpuscular HGB CONC 32.4 g/dL (32.0-36.0); Mean Corpuscular Hemoglobin 31.5 pg (27.0-31.0); Mean Corpuscular Volume 97.3 fl (78.0-98.0); Mean Platelet Volume 8.6 fL (7.4-10.4); Platelet Count 341 10x3/uL (130-400); Red Blood Cell (RBC) Count 3.94 mill/uL (4.70-6.10); White Blood Cell (WBC) Count 6.9 10x3/uL (4.8-10.8)
[2022-10-09 09:48] LABS: Troponin I 0.017 ng/mL (< 0.028)
[2022-10-09] MEDS: QUEtiapine 25 MG TAB PO SCH (21:13)
[2022-10-10] MEDS: Ipratropium Bromide 2.5 ml Neb NEB SCH ×3 (07:00→18:41)
[2022-10-10 08:03] LABS: #Eosinphils 0.3 thou/uL (0.0-0.7); #Lymphocytes 1.2 thou/uL (1.20-3.40); #Monocytes 0.5 thou/uL (0.11-0.59); #Neutrophils 4.4 thou/uL (1.40-6.50); %Basophils 0.3 % (0.0-1.0); %Lymphocytes 19.2 % (21.0-51.0); %Monocytes 8.2 % (0.0-10.0); %Neutrophils 68.4 % (42.0-75.0); Hemoglobin 12.7 g/dL (14.0-18.0); Mean Corpuscular HGB CONC 30.9 g/dL (32.0-36.0); Mean Corpuscular Hemoglobin 30.4 pg (27.0-31.0); Mean Corpuscular Volume 98.7 fl (78.0-98.0); Mean Platelet Volume 8.5 fL (7.4-10.4); Platelet Count 358 10x3/uL (130-400); Red Blood Cell (RBC) Count 4.16 mill/uL (4.70-6.10); White Blood Cell (WBC) Count 6.5 10x3/uL (4.8-10.8)
[2022-10-10 08:29] LABS: ALT (SGPT) 17 U/L (8-55); AST (SGOT) 20 U/L (5-34); Albumin 2.6 g/dL (3.4-4.8); Alkaline Phosphatase 91 U/L (40-110); Anion Gap 12 mmol/L (10-20); BUN (Urea Nitrogen) 11 mg/dL (8.4-25.7); Bilirubin, Total 0.4 mg/dL (0.2-1.2); Calc. Creatinine Clearance 96 mL/min (70-130); Calcium 8.8 mg/dL (7.8-10.44); Carbon Dioxide 26 mmol/L (23-31); Chloride 106 mmol/L (98-107); Estimated GFR 91; Globulin 4.1 g/dL (2.4-3.5); Glucose 162 mg/dL (83-110); Potassium 4.1 mmol/L (3.5-5.1); Protein, Total 6.7 g/dL (5.8-8.1); Sodium 140 mmol/L (136-145)
[2022-10-10] MEDS: Famotidine 20 MG TAB PO SCH ×2 (08:52→20:40)
[2022-10-10] MEDS: Insulin Glargine 30 UNITS/0.3 ML VIAL SC SCH ×2 (08:52→20:40)
[2022-10-10] MEDS ORDERED: Furosemide 20 MG/2 ML VIAL SLOW IVP SCH (10:00)
[2022-10-10] MEDS: HumaLOG 300 UNITS/3 ML VIAL SC PRN ×2 (12:48→17:57)
[2022-10-10] MEDS: QUEtiapine 25 MG TAB PO SCH (20:40)
[2022-10-11] MEDS: Acetaminophen 325 MG TAB PO PRN ×3 (01:09→17:44)
[2022-10-11] MEDS ORDERED: Furosemide 20 MG TAB PO SCH (08:30)
[2022-10-11] MEDS: Ipratropium Bromide 2.5 ml Neb NEB SCH ×3 (08:30→18:40)
[2022-10-11] MEDS: Famotidine 20 MG TAB PO SCH ×2 (09:47→20:28)
[2022-10-11] MEDS: Insulin Glargine 30 UNITS/0.3 ML VIAL SC SCH ×2 (09:48→20:29)
[2022-10-11] MEDS: HumaLOG 300 UNITS/3 ML VIAL SC PRN (12:44)
[2022-10-11] MEDS: QUEtiapine 25 MG TAB PO SCH (20:28)
[2022-10-12] MEDS: Acetaminophen 325 MG TAB PO PRN ×3 (02:25→20:47)
[2022-10-12] MEDS: Ipratropium Bromide 2.5 ml Neb NEB SCH ×3 (07:42→18:21)
[2022-10-12] MEDS: Famotidine 20 MG TAB PO SCH ×2 (08:02→20:48)
[2022-10-12] MEDS: Insulin Glargine 30 UNITS/0.3 ML VIAL SC SCH ×2 (08:03→20:46)
[2022-10-12] MEDS: Lidocaine 4% Patch TD SCH (10:30)
[2022-10-12] MEDS: QUEtiapine 25 MG TAB PO SCH (20:48)
[2022-10-12] MEDS ORDERED: Transdermal Patch Removal TOP SCH (21:00)
[2022-10-13] MEDS: Acetaminophen 325 MG TAB PO PRN (00:11)
[2022-10-13] MEDS: Ipratropium Bromide 2.5 ml Neb NEB SCH ×2 (07:56→14:13)
[2022-10-13 09:08] VITALS: BP 109/68; TEMP 97.7
[2022-10-13] MEDS: Famotidine 20 MG TAB PO SCH (09:45)
[2022-10-13] MEDS: Insulin Glargine 30 UNITS/0.3 ML VIAL SC SCH (09:46)
[2022-10-13] MEDS: Lidocaine 4% Patch TD SCH (09:52)
[2022-10-13] MEDS: Ipratropium/Albuterol 3 ML NEB NEB PRN (14:10)
== END 2022-10-13 16:26 | DRG 871 ==
LOC: ERS 01:09 → CCU 03:41 → IMCU/EMU 09-30 21:39 → T4-A 10-05 16:36
PROVIDERS: ADMIT Emergency Medicine; ATTEND Emergency Medicine
PROC: 02HV33Z Insertion of Infusion Device into Superior Vena Cava, Percutaneous Approach (ICD-10-PCS; principal; 2022-09-29)
PROC: B548ZZA Ultrasonography of Superior Vena Cava, Guidance (ICD-10-PCS; 2022-09-29)
PROC: 5A0955A Assistance with Respiratory Ventilation, Greater than 96 Consecutive Hours, High Flow/Velocity Cannula (ICD-10-PCS; 2022-09-29)
PROC: 4A033R1 Measurement of Arterial Saturation, Peripheral, Percutaneous Approach (ICD-10-PCS; 2022-09-29)
PROC: 3E03329 Introduction of Other Anti-infective into Peripheral Vein, Percutaneous Approach (ICD-10-PCS; 2022-09-29)
PROC: 3E033XZ Introduction of Vasopressor into Peripheral Vein, Percutaneous Approach (ICD-10-PCS; 2022-09-29)
DX: A41.9 Sepsis, unspecified organism (principal); G93.41 Metabolic encephalopathy; J18.9 Pneumonia, unspecified organism; R65.21 Severe sepsis with septic shock; J96.01 Acute respiratory failure with hypoxia; J69.0 Pneumonitis due to inhalation of food and vomit; E87.20 Acidosis, unspecified; N17.9 Acute kidney failure, unspecified; J44.0 Chronic obstructive pulmonary disease with (acute) lower respiratory infection; J44.1 Chronic obstructive pulmonary disease with (acute) exacerbation; I47.1 Supraventricular tachycardia; Z66 Do not resuscitate; F01.50 Vascular dementia, unspecified severity, without behavioral disturbance, psychotic disturbance, mood disturbance, and anxiety; Z20.822 Contact with and (suspected) exposure to COVID-19; I48.91 Unspecified atrial fibrillation; I71.20 Thoracic aortic aneurysm, without rupture, unspecified; I71.40 Abdominal aortic aneurysm, without rupture, unspecified; D64.9 Anemia, unspecified; K76.0 Fatty (change of) liver, not elsewhere classified; E83.42 Hypomagnesemia; E11.65 Type 2 diabetes mellitus with hyperglycemia; G47.00 Insomnia, unspecified; Z85.51 Personal history of malignant neoplasm of bladder; Z98.890 Other specified postprocedural states; Z87.891 Personal history of nicotine dependence; Z79.51 Long term (current) use of inhaled steroids; Z79.84 Long term (current) use of oral hypoglycemic drugs; Z79.4 Long term (current) use of insulin; Z79.899 Other long term (current) drug therapy
CPT/HCPCS: 36415; 36416; 36556; 36600; 51701; 71045; 74230; 80053; 80202; 81003; 81015; 82805; 83036; 83605; 83735; 83880; 84145; 84443; 84484; 85025; 85060; 87040; 87086; 87811; 93005; 93010; 93306; 94640; 96365; 96366; 96368; 96375; J0692; J1100; J1160; J1650; J1815; J1885; J1940; J2543; J3370; J3370-JW; J3475; J3490; J7030; J7050; J7120; J7620; P9045

== ENCOUNTER 2022-10-27 12:02 | Inpatient (IN) | payer MEDICARE, OTHER ==
[2022-10-27 13:26] LABS: #Eosinphils 0.1 thou/uL (0.0-0.7); #Lymphocytes 1.7 thou/uL (1.20-3.40); #Monocytes 0.5 thou/uL (0.11-0.59); #Neutrophils 4.3 thou/uL (1.40-6.50); %Basophils 0.4 % (0.0-1.0); %Eosinophils 1.4 % (0.0-10.0); %Lymphocytes 25.7 % (21.0-51.0); %Monocytes 7.4 % (0.0-10.0); %Neutrophils 65.2 % (42.0-75.0); Hemoglobin 13.8 g/dL (14.0-18.0); Mean Corpuscular HGB CONC 30.4 g/dL (32.0-36.0); Mean Corpuscular Hemoglobin 29.3 pg (27.0-31.0); Mean Corpuscular Volume 96.3 fl (78.0-98.0); Mean Platelet Volume 9.5 fL (7.4-10.4); Platelet Count 176 10x3/uL (130-400); RBC Distribution Width 13.1 % (11.5-14.5); Red Blood Cell (RBC) Count 4.72 mill/uL (4.70-6.10); White Blood Cell (WBC) Count 6.7 10x3/uL (4.8-10.8)
[2022-10-27 13:46] LABS: ALT (SGPT) 17 U/L (8-55); AST (SGOT) 28 U/L (5-34); Albumin 3.4 g/dL (3.4-4.8); Alkaline Phosphatase 106 U/L (40-110); Anion Gap 16 mmol/L (10-20); BUN (Urea Nitrogen) 15 mg/dL (8.4-25.7); Bilirubin, Total 0.3 mg/dL (0.2-1.2); CK (CPK) 29 U/L (30-200); Calc. Creatinine Clearance 0 mL/min (70-130); Calcium 8.8 mg/dL (7.8-10.44); Carbon Dioxide 23 mmol/L (23-31); Chloride 104 mmol/L (98-107); Estimated GFR 85; Globulin 3.8 g/dL (2.4-3.5); Glucose 233 mg/dL (83-110); Lipase 5 U/L (8-78); Potassium 4.2 mmol/L (3.5-5.1); Protein, Total 7.2 g/dL (5.8-8.1); Sodium 139 mmol/L (136-145)
[2022-10-27 14:47] LABS: Bacteria/HPF None Seen HPF (None Seen); Bilirubin Negative (Negative); Blood, Urine Negative (Negative); Clarity Clear (Clear); Glucose, Urine (Dipstick) Normal (Negative); Ketone, Urine Negative (Negative); Leukocyte 75 Leu/uL (Negative); Nitrite Negative (Negative); Protein, Urine (Dipstick) Negative (Neg-Trace); RBC/HPF 0-3 HPF (0-3); Specific Gravity, Urine 1.014 (1.002-1.036); Squamous Epithelial None Seen HPF (0-3); pH, Urine 7.5 (5.0-9.0)
[2022-10-27 15:18] LABS: SARS-CoV-2 NAA Rapid Test Not Detected (NotDetected)
[2022-10-27] MEDS ORDERED: Triple Antibiotic Oint 1 GM Packet ONE (16:17)
[2022-10-27 17:12] LABS: Lactic Acid 2.7 mmol/L (0.5-2.2)
[2022-10-27] MEDS: Lactated Ringer's 1,000 ML IV SCH (18:36)
[2022-10-27] MEDS ORDERED: Acetaminophen 325 MG TAB ONE (18:38)
[2022-10-27] MEDS: Acetaminophen 325 MG TAB PO PRN ×2 (18:45→22:23)
[2022-10-27 20:10] VITALS: BMI 25.7
[2022-10-27] MEDS ORDERED: Insulin Glargine 30 UNITS/0.3 ML VIAL SC SCH (21:00)
[2022-10-27] MEDS: metFORMIN 500 MG TAB PO SCH (22:23)
[2022-10-27] MEDS ORDERED: Gabapentin 300 MG CAP PO SCH (22:25)
[2022-10-27] MEDS: QUEtiapine 25 MG TAB PO SCH (22:28)
[2022-10-28] MEDS: Lactated Ringer's 1,000 ML IV SCH ×3 (01:16→16:21)
[2022-10-28] MEDS ORDERED: Melatonin 3 MG TAB PO SCH (01:30)
[2022-10-28] MEDS ORDERED: Diclofenac 1% 100 GM GEL TP SCH (02:00)
[2022-10-28] MEDS: Ipratropium/Albuterol 3 ML NEB NEB SCH ×5 (03:06→23:05)
[2022-10-28 04:47] LABS: #Eosinphils 0.1 thou/uL (0.0-0.7); #Monocytes 0.5 thou/uL (0.11-0.59); #Neutrophils 3.2 thou/uL (1.40-6.50); %Eosinophils 1.7 % (0.0-10.0); %Lymphocytes 34.8 % (21.0-51.0); %Monocytes 8.1 % (0.0-10.0); %Neutrophils 55.3 % (42.0-75.0); Hemoglobin 11.7 g/dL (14.0-18.0); Mean Corpuscular HGB CONC 33.1 g/dL (32.0-36.0); Mean Corpuscular Hemoglobin 31.5 pg (27.0-31.0); Mean Corpuscular Volume 95.1 fl (78.0-98.0); Mean Platelet Volume 9.4 fL (7.4-10.4); Platelet Count 143 10x3/uL (130-400); Red Blood Cell (RBC) Count 3.73 mill/uL (4.70-6.10); White Blood Cell (WBC) Count 5.8 10x3/uL (4.8-10.8)
[2022-10-28 05:11] LABS: Anion Gap 10 mmol/L (10-20); BUN (Urea Nitrogen) 12 mg/dL (8.4-25.7); Calc. Creatinine Clearance 91 mL/min (70-130); Carbon Dioxide 24 mmol/L (23-31); Chloride 108 mmol/L (98-107); Estimated GFR 89; Glucose 193 mg/dL (83-110); Potassium 3.6 mmol/L (3.5-5.1); Sodium 138 mmol/L (136-145)
[2022-10-28] MEDS ORDERED: Lactated Ringer's 500 ML IV SCH (06:45)
[2022-10-28] MEDS ORDERED: Potassium Chloride 20 MEQ TAB PO SCH (07:30)
[2022-10-28] MEDS ORDERED: Gabapentin 300 MG CAP PO SCH (09:00)
[2022-10-28] MEDS ORDERED: Insulin Glargine 30 UNITS/0.3 ML VIAL SC SCH (09:00)
[2022-10-28] MEDS: metFORMIN 500 MG TAB PO SCH ×2 (09:59→21:47)
[2022-10-28] MEDS: Finasteride 5 MG TAB PO SCH (09:59)
[2022-10-28] MEDS: Insulin Glargine 30 UNITS/0.3 ML VIAL SC SCH ×2 (09:59→20:22)
[2022-10-28] MEDS: Famotidine 20 MG TAB PO SCH (09:59)
[2022-10-28] MEDS: Gabapentin 300 MG CAP PO SCH ×3 (09:59→21:46)
[2022-10-28] MEDS: Cyanocobalamin (Vitamin B-12) 1,000 MCG TAB PO SCH (09:59)
[2022-10-28] MEDS: Diclofenac 1% 100 GM GEL TP SCH ×4 (10:00→20:28)
[2022-10-28] MEDS: QUEtiapine 25 MG TAB PO SCH (21:46)
[2022-10-29] MEDS: Ipratropium/Albuterol 3 ML NEB NEB SCH (07:46)
[2022-10-29] MEDS: Gabapentin 300 MG CAP PO SCH ×3 (09:47→20:35)
[2022-10-29] MEDS: Cyanocobalamin (Vitamin B-12) 1,000 MCG TAB PO SCH (09:47)
[2022-10-29] MEDS: metFORMIN 500 MG TAB PO SCH ×2 (09:47→20:31)
[2022-10-29] MEDS: Finasteride 5 MG TAB PO SCH (09:48)
[2022-10-29] MEDS: Insulin Glargine 30 UNITS/0.3 ML VIAL SC SCH ×2 (09:48→20:36)
[2022-10-29] MEDS: Famotidine 20 MG TAB PO SCH (09:48)
[2022-10-29] MEDS: Diclofenac 1% 100 GM GEL TP SCH ×4 (09:49→20:30)
[2022-10-29] MEDS: Albuterol 200 PUFF (6.7GM INHALER) INH SCH ×2 (14:48→19:49)
[2022-10-29] MEDS ORDERED: Dextrose 50% Abboject 50 ML SYRINGE SLOW IVP PRN (19:51)
[2022-10-29] MEDS ORDERED: Dextrose 5% in Water 1,000 ML IV PRN (19:51)
[2022-10-29] MEDS ORDERED: HumaLOG 300 UNITS/3 ML VIAL SC PRN (19:51)
[2022-10-29] MEDS: QUEtiapine 25 MG TAB PO SCH (20:31)
[2022-10-30] MEDS: Albuterol 200 PUFF (6.7GM INHALER) INH SCH ×4 (03:11→19:08)
[2022-10-30] MEDS: Finasteride 5 MG TAB PO SCH (09:00)
[2022-10-30] MEDS: Gabapentin 300 MG CAP PO SCH ×3 (09:00→21:07)
[2022-10-30] MEDS: Famotidine 20 MG TAB PO SCH (09:01)
[2022-10-30] MEDS: Cyanocobalamin (Vitamin B-12) 1,000 MCG TAB PO SCH (09:02)
[2022-10-30] MEDS: metFORMIN 500 MG TAB PO SCH ×2 (09:02→21:08)
[2022-10-30] MEDS: Insulin Glargine 30 UNITS/0.3 ML VIAL SC SCH ×2 (09:02→21:10)
[2022-10-30] MEDS: Diclofenac 1% 100 GM GEL TP SCH ×4 (09:03→21:06)
[2022-10-30] MEDS: HumaLOG 300 UNITS/3 ML VIAL SC PRN ×2 (14:11→17:18)
[2022-10-30] MEDS: Acetaminophen 325 MG TAB PO PRN (21:07)
[2022-10-30] MEDS: QUEtiapine 25 MG TAB PO SCH (21:09)
[2022-10-31] MEDS: Albuterol 200 PUFF (6.7GM INHALER) INH SCH ×4 (00:09→18:52)
[2022-10-31] MEDS ORDERED: Insulin Glargine 30 UNITS/0.3 ML VIAL SC SCH (07:30)
[2022-10-31] MEDS: Diclofenac 1% 100 GM GEL TP SCH ×4 (08:40→20:15)
[2022-10-31] MEDS: Cyanocobalamin (Vitamin B-12) 1,000 MCG TAB PO SCH (08:41)
[2022-10-31] MEDS: Finasteride 5 MG TAB PO SCH (08:41)
[2022-10-31] MEDS: Famotidine 20 MG TAB PO SCH (08:41)
[2022-10-31] MEDS: metFORMIN 500 MG TAB PO SCH ×2 (08:42→20:11)
[2022-10-31] MEDS: Gabapentin 300 MG CAP PO SCH ×3 (08:42→20:13)
[2022-10-31] MEDS: Insulin Glargine 30 UNITS/0.3 ML VIAL SC SCH ×2 (08:43→21:16)
[2022-10-31] MEDS ORDERED: FLU VACC QS2022-23(65YR UP)/PF 240 MCG/0.7 ML SYRINGE IM ONE (09:00)
[2022-10-31] MEDS: HumaLOG 300 UNITS/3 ML VIAL SC PRN (12:56)
[2022-10-31] MEDS: Acetaminophen 325 MG TAB PO PRN (20:14)
[2022-10-31] MEDS: QUEtiapine 25 MG TAB PO SCH (20:15)
[2022-11-01] MEDS: Albuterol 200 PUFF (6.7GM INHALER) INH SCH ×3 (00:43→12:03)
[2022-11-01] MEDS ORDERED: Famotidine 20 MG TAB PO SCH (09:00)
[2022-11-01] MEDS ORDERED: Insulin Glargine 30 UNITS/0.3 ML VIAL SC SCH ×2 (09:00→11:00)
[2022-11-01] MEDS: Finasteride 5 MG TAB PO SCH (09:23)
[2022-11-01] MEDS: Gabapentin 300 MG CAP PO SCH (09:24)
[2022-11-01] MEDS: Cyanocobalamin (Vitamin B-12) 1,000 MCG TAB PO SCH (09:24)
[2022-11-01] MEDS: metFORMIN 500 MG TAB PO SCH (09:25)
[2022-11-01] MEDS: Diclofenac 1% 100 GM GEL TP SCH (09:55)
[2022-11-01] MEDS: Famotidine 20 MG TAB PO SCH (10:37)
[2022-11-01] MEDS: HumaLOG 300 UNITS/3 ML VIAL SC PRN (11:55)
[2022-11-01 12:03] VITALS: BP 109/70; TEMP 97.8
== END 2022-11-01 12:10 | DRG 641 ==
LOC: ERS 12:02 → ERHOLD 15:39 → 2NO 19:54 → ERHOLD 10-29 17:32 → 2NO 10-29 17:33 → SURG B 10-29 18:02 → OBSVTOIN 10-29 20:58
PROVIDERS: ADMIT Family Medicine; ATTEND Family Medicine
DX: E86.0 Dehydration (principal); E87.20 Acidosis, unspecified; I48.91 Unspecified atrial fibrillation; E11.9 Type 2 diabetes mellitus without complications; I10 Essential (primary) hypertension; J44.9 Chronic obstructive pulmonary disease, unspecified; S00.212A Abrasion of left eyelid and periocular area, initial encounter; S50.812A Abrasion of left forearm, initial encounter; W19.XXXA Unspecified fall, initial encounter; I71.9 Aortic aneurysm of unspecified site, without rupture; Z66 Do not resuscitate; Z79.51 Long term (current) use of inhaled steroids; Z79.4 Long term (current) use of insulin; Z79.899 Other long term (current) drug therapy; Z79.84 Long term (current) use of oral hypoglycemic drugs; Z85.51 Personal history of malignant neoplasm of bladder; Z98.890 Other specified postprocedural states; Y92.000 Kitchen of unspecified non-institutional (private) residence as the place of occurrence of the external cause; Z87.891 Personal history of nicotine dependence; Z20.822 Contact with and (suspected) exposure to COVID-19
CPT/HCPCS: 36415; 36416; 51701; 70450; 71045; 72125; 80048; 80053; 81003; 81015; 82140; 82533; 82550; 83605; 83690; 83880; 84443; 84484; 85025; 87040; 93005; 93880; 94640; 96360; 96372; 97139; G0378; J1650; J1815; J7120; J7620

== ENCOUNTER 2023-10-20 06:44 | Emergency (ER) | payer MEDICARE ==
[2023-10-20 07:11] LABS: #Eosinphils 0.1 thou/uL (0.0-0.7); #Monocytes 0.5 thou/uL (0.11-0.59); #Neutrophils 8.5 thou/uL (1.40-6.50); %Basophils 0.3 % (0.0-1.0); %Eosinophils 0.7 % (0.0-10.0); %Lymphocytes 18.8 % (21.0-51.0); %Monocytes 4.5 % (0.0-10.0); %Neutrophils 75.4 % (42.0-75.0); Hematocrit 44.3 % (42.0-52.0); Hemoglobin 14.4 g/dL (14.0-18.0); Mean Corpuscular HGB CONC 32.5 g/dL (32.0-36.0); Mean Corpuscular Hemoglobin 29.6 pg (27.0-31.0); Mean Platelet Volume 11.5 fL (7.4-10.4); Platelet Count 174 10x3/uL (130-400); RBC Distribution Width 14.3 % (11.5-14.5); Red Blood Cell (RBC) Count 4.87 mill/uL (4.70-6.10); White Blood Cell (WBC) Count 11.3 10x3/uL (4.8-10.8)
[2023-10-20 07:27] LABS: ALT (SGPT) 38 U/L (8-55); AST (SGOT) 34 U/L (5-34); Albumin 3.4 g/dL (3.4-4.8); Alkaline Phosphatase 148 U/L (40-110); Anion Gap 14 mmol/L (10-20); BUN (Urea Nitrogen) 13 mg/dL (8.4-25.7); Bilirubin, Total 0.6 mg/dL (0.2-1.2); Calc. Creatinine Clearance 0 mL/min (70-130); Calcium 9.2 mg/dL (7.8-10.44); Carbon Dioxide 25 mmol/L (23-31); Chloride 101 mmol/L (98-107); Estimated GFR 83; Globulin 3.8 g/dL (2.4-3.5); Glucose 211 mg/dL (83-110); Potassium 4.2 mmol/L (3.5-5.1); Protein, Total 7.2 g/dL (5.8-8.1); Sodium 136 mmol/L (136-145)
[2023-10-20 07:30] LABS: Troponin I Less than 0.010 ng/mL (< 0.028)
[2023-10-20 10:58] LABS: Critical Call Chem-Lactate NUR.KR7@1057; Lactic Acid 4.3 mmol/L (0.5-2.2)
== END 2023-10-20 09:43 | disposition home or self-care (01) ==
LOC: ERS 06:44
DX: S00.83XA Contusion of other part of head, initial encounter (principal); E11.9 Type 2 diabetes mellitus without complications; J44.9 Chronic obstructive pulmonary disease, unspecified; K21.9 Gastro-esophageal reflux disease without esophagitis; E78.5 Hyperlipidemia, unspecified; Z79.84 Long term (current) use of oral hypoglycemic drugs; Z79.4 Long term (current) use of insulin; Z87.891 Personal history of nicotine dependence; W18.30XA Fall on same level, unspecified, initial encounter
CPT/HCPCS: 36415; 70450; 71045; 80053; 83605; 84484; 85025; 93005